=== PATIENT | female | born 1940 | race Caucasian/White ===

== ENCOUNTER 2019-04-21 14:10 | Outpatient (RCR) | payer OTHER, SELFPAY | END 2019-04-21 23:59 | disposition home or self-care (01) | LOC: ANHAUDIO 14:10 | PROVIDERS: PCP Family Medicine; Visit Provider Family Medicine | DX: Z46.1 Encounter for fitting and adjustment of hearing aid (principal) | CPT/HCPCS: V5261 ==

== ENCOUNTER 2019-07-08 10:49 | Outpatient (CLI) | payer OTHER, SELFPAY ==
[2019-07-08 11:26] LABS: Basophils Percent Auto 0.6 % (0.2-1.2); Eosinophils Absolute Auto 0.1 K/mm3 (0-0.3); Eosinophils Percent Auto 1.7 % (0-4.4); Hemoglobin 15.6 g/dL (12.0-15.0); Immature Granulocyte Absolute 0.01 K/mm3 (0.00-0.031); Immature Granulocyte Percent A 0.2 % (0-0.5); Immature Platelet Fraction Pct 4.1 % (0.9-11.2); Lymphocytes Percent Auto 31.4 % (18.3-44.2); Mean Corpuscular HGB Conc 33.9 g/dl (32-36); Mean Corpuscular Hemoglobin 29.4 pg (26-34); Mean Corpuscular Volume 86.8 fl (80-100); Mean Platelet Volume 10.5 fl (7.4-10.4); Monocytes Absolute Auto 0.5 K/mm3 (0.1-0.6); Monocytes Percent Auto 11.1 % (2.6-8.5); Neutrophils Absolute Auto 2.6 K/mm3 (1.3-6.7); Platelet Count Result 94 k/mm3 (150-375); Red Cell Distribution Width 13.8 % (11.5-14.5); White Blood Count 4.8 K/mm3 (4.5-10.0)
[2019-07-08 11:39] LABS: Alanine Aminotransferase 35 U/L (4-35); Albumin Level 3.8 g/dL (3.5-5.1); Alkaline Phosphatase 104 U/L (38-126); Aspartate Amino Transferase 42 U/L (14-36); Bilirubin,Total 0.7 mg/dL (0.2-1.3); Blood Urea Nitrogen 15 mg/dL (7-17); Calcium 9.4 mg/dL (8.4-10.2); Carbon Dioxide 28 mmol/L (22-30); Chloride 101 mmol/L (98-107); Estimated Glomerular Filt Rate > 60; Glucose 348 mg/dL (65-105); Potassium 4.1 mmol/L (3.4-5.0); Sodium 134 mmol/L (137-145)
[2019-07-08 11:40] LABS: Hemoglobin A1C 13.2 % (<5.7)
== END 2019-07-08 10:50 | disposition home or self-care (01) ==
PROVIDERS: PCP Family Medicine; Visit Provider Physician Assistant
DX: E11.21 Type 2 diabetes mellitus with diabetic nephropathy (principal); I10 Essential (primary) hypertension
CPT/HCPCS: 36415; 80053; 83036; 85025; 85055

== ENCOUNTER 2019-11-16 13:44 | Outpatient (RCR) | payer SELFPAY | END 2019-11-16 23:59 | disposition home or self-care (01) | LOC: ANHAUDIO 13:44 | PROVIDERS: PCP Family Medicine; Visit Provider Family Medicine | DX: Z46.1 Encounter for fitting and adjustment of hearing aid (principal) | CPT/HCPCS: V5257 ==

== ENCOUNTER 2020-02-22 11:04 | Outpatient (RCR) | payer OTHER, SELFPAY | END 2020-02-22 23:59 | disposition home or self-care (01) | LOC: ANHAUDIO 11:04 | PROVIDERS: PCP Family Medicine; Visit Provider Family Medicine | DX: Z46.1 Encounter for fitting and adjustment of hearing aid (principal) | CPT/HCPCS: 99199 ==

== ENCOUNTER 2020-03-08 10:45 | Outpatient (RCR) | payer OTHER, SELFPAY | END 2020-05-04 13:23 | disposition home or self-care (01) | LOC: ANHDMC 10:45 | PROVIDERS: PCP Family Medicine; Visit Provider Family Medicine | DX: E11.22 Type 2 diabetes mellitus with diabetic chronic kidney disease (principal); E11.40 Type 2 diabetes mellitus with diabetic neuropathy, unspecified; Z71.89 Other specified counseling | CPT/HCPCS: G0108 ==

== ENCOUNTER 2020-06-08 14:13 | Outpatient (CLI) | payer OTHER, MEDICARE, SELFPAY | END 2020-06-08 14:14 | disposition home or self-care (01) | LOC: ANHCOVIDVC 14:14 | PROVIDERS: PCP Family Medicine | DX: Z23 Encounter for immunization (principal) | CPT/HCPCS: 0001A; 91300 ==

== ENCOUNTER 2020-06-29 13:05 | Outpatient (CLI) | payer OTHER, MEDICARE, SELFPAY | END 2020-06-29 13:06 | disposition home or self-care (01) | LOC: ANHCOVIDVC 13:05 | PROVIDERS: PCP Family Medicine | DX: Z23 Encounter for immunization (principal) | CPT/HCPCS: 0002A; 91300 ==

== ENCOUNTER 2020-11-16 14:16 | Emergency (ER) | payer OTHER, SELFPAY ==
--- NOTE | ~2020-11-16 | XR_ITS ---
EXAMINATION: XR lumbar spine 2-3V DATE: 11/16/2020 14:49 INDICATION: A single back pain TECHNIQUE: Anteroposterior and lateral views of the lumbar spine, and cone-down lateral view of the l umbosacral junction were obtained. COMPARISON: CT abdomen and pelvis dated 11/12/2018 FINDINGS: Mild lower lumbar levocurvature. 6 mm anterolisthesis L4 on L5 and 4 mm retrolisthesis L5 on S1. Vert ebral body heights are normal. Moderate to severe disc height loss with prominent degenerative endpla te changes and vacuum phenomena at L1-L2, L2-L3 and L5-S1. Moderate disc height loss at L3-L4 and L4- L5. Endplate osteophytes anteriorly and laterally throughout the lumbar spine. Sacral arches are inta ct. Mild bilateral sacroiliac osteoarthritis. Masslike suture line in the central pelvis. Atheroscler otic calcification of the splenic artery and numerous small calcified splenic granuloma in the left u pper quadrant. IMPRESSION: 1. No significant change in severe lumbar spondylosis. Reviewed, dictated and finalized at location A.
[2020-11-16 14:25] VITALS: BP 157/87; PULSE 61; RESP 18; TEMP 36.8; O2SAT 98
--- NOTE | 2020-11-16 14:40 | ED.BACK ---
HPI - Back Pain/Injury General Chief Complaint: Back Pain/Injury Stated Complaint: LOWER BACK PAIN Time Seen by Provider: 11/16/20 14:40 Source: patient Mode of arrival: ambulatory Limitations: no limitations History of Present Illness HPI Narrative: Marilyn Baker is an 80 yo female with PMH of HTN, high cholesterol, DM, chronic backl pain, depression who comes to [facility] for low back pain that she is having hard time managing. She states that her back hurts all the time and is gotten worse ; holistic medical practices have not helped. her primary care doctor called in some muscle relaxants for her and she needs to pick them up and also has been going to a chiropractor. States she was 1 scheduled for back surgery 10 years ago but did not end up going through with it and has not seen a orthopedic surgeon since then Related Data Home Medications Medication Instructions Recorded Confirmed mzznqmrm-nwt-cntfu ac 400 1 tablet PO DAILY 12/16/18 11/16/20 mcg-calcium carb 500 mg-vit K1 20 mcg tablet insulin aspart U-100 [Novolog 10 - 15 unit SUB-Q TID 11/16/20 11/16/20 Flexpen U-100 Insulin] Allergies Allergy/AdvReac Type Severity Reaction Status Date / Time No Known Allergies Allergy Unknown Verified 11/16/20 14:36 Review of Systems Review of Systems: CONSTITUTIONAL: Denies fever, chills, sweats. EYES: Denies visual changes, redness, discharge. ENT: Denies rhinorrhea, congestion, sore throat, otalgia. CARDIOVASCULAR: Denies chest pain, palpitations, edema. RESPIRATORY: Denies dyspnea, wheezing, cough GASTROINTESTINAL: Denies abdominal pain, nausea, vomiting, diarrhea. GENITOURINARY: Denies dysuria, hematuria, abnormal discharge SKIN: Denies rash or itching. NEUROLOGIC: Denies numbness, or focal weakness. PSYCHIATRIC: Denies anxiety or depression. Chronic lumbar back pain PMFSH Past Medical History Medical History Arthritis of knee Atherosclerosis of aorta Atherosclerotic heart disease of [place] coronary artery without angina pectoris Chronic diastolic (congestive) heart failure Chronic pancreatitis 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) Cognitive impairment Constipation Diabetic nephropathy Diabetic neuropathy History of right breast cancer HTN (hypertension) HX: breast cancer MDD (major depressive disorder), recurrent episode, severe Mild cognitive impairment with memory loss Non-compliance BRO (obstructive sleep apnea) Primary generalized (osteo)arthritis 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cial History Social History: Smoking status: Never smoker Second hand tobacco smoke exposure: No Alcohol intake: never Substance use: never Substance use type: does not use Additional living arrangements comments: Pt lives with her son. Gender identity (if verbalized by the patient): Female Sexual Orientation (if Verbalized by the Patient): Straight or Heterosexual Comments At time of signature, I agree with nursing past medical, surgical, social and family history. There is no relevant family history pertinent to the presenting complaint. Exam Narrative:
== END 2020-11-16 15:37 | disposition home or self-care (01) ==
PROVIDERS: Emergency Provider Nurse Practitioner; PCP Family Medicine
DX: M47.816 Spondylosis without myelopathy or radiculopathy, lumbar region (principal); M17.10 Unilateral primary osteoarthritis, unspecified knee; I70.0 Atherosclerosis of aorta; I25.10 Atherosclerotic heart disease of native coronary artery without angina pectoris; I11.0 Hypertensive heart disease with heart failure; I50.30 Unspecified diastolic (congestive) heart failure; I69.319 Unspecified symptoms and signs involving cognitive functions following cerebral infarction; E11.42 Type 2 diabetes mellitus with diabetic polyneuropathy; Z85.3 Personal history of malignant neoplasm of breast; G47.33 Obstructive sleep apnea (adult) (pediatric); Z90.11 Acquired absence of right breast and nipple
CPT/HCPCS: 72100; 99213; G0463

== ENCOUNTER 2020-12-05 05:46 | Emergency (ER) | payer OTHER, SELFPAY ==
--- NOTE | ~2020-12-05 | XR_ITS ---
EXAMINATION: XR abdomen/kub 1V INDICATION: Left flank pain TECHNIQUE: Supine views of the abdomen were obtained on 2 radiographs. COMPARISON: 09/21/2018 FINDINGS: No urolithiasis is identified. The bowel gas pattern is normal. There is a moderate volume of colonic stool. Punctate calcifications of the liver and spleen are consistent with old granulomato us disease. The visualized lung bases are clear. A surgical anastomosis is noted in the pelvis. There is moderate osteoarthritis of the hips. Severe lumbar spondylosis is noted. IMPRESSION: 1. No urolithiasis identified. Reviewed, dictated and finalized at location A.
--- NOTE | ~2020-12-05 | CT_ITS ---
EXAMINATION: CT abdomen pelvis wo con DATE: 12/05/2020 06:50 INDICATION: Left flank pain TECHNIQUE: Computed tomography (CT) of the abdomen and pelvis was performed without intravenous contr ast. The dose-length product (DLP) was 989.89 mGy-cm. Automated exposure control and iterative recons truction technique were employed. COMPARISON: 11/12/2018 FINDINGS: Minimal dependent atelectasis is present in the lung bases. The heart size is normal. Punct ate calcifications of the liver and spleen are consistent with old granulomatous disease. There is ci rrhosis of the liver. Chronic wall thickening is noted in the distal esophagus. A portacaval shunt is again noted in the right abdomen. There are paraesophageal varices. The gallbladder is surgically ab sent. The gallbladder is surgically absent. Calcifications in the head of the pancreas are consistent with chronic pancreatitis. There appears to be a 1.7 cm cystic lesion in the head of the pancreas. S table chronic mass of the right adrenal gland measuring up to 2.2 cm and likely represent adenomas. T he left adrenal gland is unremarkable. There is a 2.1 cm cyst of the right kidney. The left kidney is unremarkable. No stones are identified in the kidneys, ureters, or bladder. There is no hydronephros is or hydroureter. There is severe lumbar spondylosis. Mild periportal lymphadenopathy is likely reac tive. There is no free intraperitoneal gas or evidence of bowel obstruction. Colonic diverticulosis i s present without evidence of diverticulitis. There is an acute appearing fracture of the right L2 tr ansverse process. IMPRESSION: 1. Acute appearing fracture of the right L2 transverse process. 2. Cirrhosis with portal hypertension. 3. Possible cystic lesion in the head of the pancreas, possibly related to prior pancreatitis. Pancre as protocol CT or MRI in two years is recommended. Reviewed, dictated and finalized at location A. IMPRESSION: 1. Acute appearing fracture of the right L2 transverse process. 2. Cirrhosis with portal hypertension. 3. Possible cystic lesion in the head of the pancreas, possibly related to prio r pancreatitis. Pancreas protocol CT or MRI in two years is recommended.
[2020-12-05 05:56] VITALS: BP 201/83; PULSE 71; RESP 18; TEMP 37.2; O2SAT 99
[2020-12-05] MEDS: ONDANSETRON INJ 4 MG/2 ML VIAL IV PUSH (06:15)
[2020-12-05 06:26] LABS: Basophils Percent Auto 0.8 % (0.2-1.2); Eosinophils Absolute Auto 0.1 K/mm3 (0-0.3); Eosinophils Percent Auto 1.9 % (0-4.4); Hematocrit 43.9 % (37.0-47.0); Hemoglobin 14.6 g/dL (12.0-15.0); Immature Granulocyte Absolute 0.01 K/mm3 (0.00-0.031); Immature Granulocyte Percent A 0.3 % (0-0.5); Immature Platelet Fraction Pct 4.6 % (0.9-11.2); Lymphocytes Absolute Auto 1.08 K/mm3 (0.9-3.2); Lymphocytes Percent Auto 29.1 % (18.3-44.2); Mean Corpuscular HGB Conc 33.3 g/dl (32-36); Mean Corpuscular Hemoglobin 29.6 pg (26-34); Mean Corpuscular Volume 88.9 fl (80-100); Mean Platelet Volume 10.3 fl (7.4-10.4); Monocytes Absolute Auto 0.4 K/mm3 (0.1-0.6); Monocytes Percent Auto 11.1 % (2.6-8.5); Neutrophils Absolute Auto 2.1 K/mm3 (1.3-6.7); Neutrophils Percent Auto 56.8 % (45.5-73.1); Red Blood Count 4.94 M/mm3 (4.2-5.4); Red Cell Distribution Width 14.8 % (11.5-14.5); White Blood Count 3.7 K/mm3 (4.5-10.0)
[2020-12-05 06:29] LABS: Platelet Count Result 74 k/mm3 (150-375)
[2020-12-05 06:30] LABS: Add Urine Microscopic? YES; Appearance Urine Clear (Clear); Bacteria Urine Trace /hpf; Bilirubin Urine Negative (Negative); Blood Urine Negative (Negative); Color Urine Yellow (Yellow); Glucose Urine UA 3+ mg/dL (Negative); Ketones Urine Negative (Negative); Leukocyte Esterase Ur Negative LEU/UL (Negative); Nitrate Urine Negative (Negative); Protein Urine 2+ mg/dL (Negative); RBC Urine 0-2 /hpf (0-2); Specific Grav Ur 1.015 (1.001-1.035); Squamous Epithelial Cell Urine Rare /hpf (Few); Urobilinogen Urine Negative mg/dL (<2.0); WBC Urine 0-3 /hpf
[2020-12-05 06:32] LABS: Alanine Aminotransferase 51 U/L (4-35); Albumin Level 3.7 g/dL (3.5-5.1); Alkaline Phosphatase 114 U/L (38-126); Anion Gap 8 mmol/L (8-16); Aspartate Amino Transferase 63 U/L (14-36); Bilirubin,Total 0.9 mg/dL (0.2-1.3); Blood Urea Nitrogen 12 mg/dL (7-17); Carbon Dioxide 26 mmol/L (22-30); Chloride 104 mmol/L (98-107); Estimated Glomerular Filt Rate > 60; Glucose 312 mg/dL (65-110); Lipase 258 U/L (23-300); Potassium 3.6 mmol/L (3.4-5.0); Sodium 138 mmol/L (137-145)
--- NOTE | 2020-12-05 06:32 | ED.BACK ---
HPI - Back Pain/Injury General Chief Complaint: Back Pain/Injury Stated Complaint: left sided abdominal and flank pain Time Seen by Provider: 12/05/20 05:51 Source: patient Mode of arrival: ambulatory Limitations: no limitations History of Present Illness HPI Narrative: This is an 80 year old female with history of hypertension and diabetic mellitus who presents for evaluation left flank pain. She reports her pain has been present for 1.5. She describes pain as stabbing and constant. She is unaware of any exacerbating or alleviating factors. She is having nausea with her pain. She denies radiation pain. She is concerned for possible kidney stone was cause of her pain due to family history. She was evaluated at [facility] and a chiropractor for this pain. She reports she has only been taking tylenol and she has not gotten any relief. Related Data Home Medications Medication Instructions Recorded Confirmed kqznhbox-ofr-mxzgb ac 400 1 tablet PO DAILY 12/16/18 12/05/20 mcg-calcium carb 500 mg-vit K1 20 mcg tablet insulin aspart U-100 [Novolog 10 - 15 unit SUB-Q TID 11/16/20 12/05/20 Flexpen U-100 Insulin] Allergies Allergy/AdvReac Type Severity Reaction Status Date / Time No Known Allergies Allergy Unknown Verified 12/05/20 10:04 Review of Systems Review of Systems: All systems reviewed & are unremarkable except as noted in HPI and below PMFSH Past Medical History Medical History Arthritis of knee Atherosclerosis of aorta Atherosclerotic heart disease of [place] coronary artery without angina pectoris Chronic diastolic (congestive) heart failure Chronic pancreatitis 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) Cognitive impairment Constipation Diabetic nephropathy Diabetic neuropathy History of right breast cancer HTN (hypertension) HX: breast cancer MDD (major depressive disorder), recurrent episode, severe Mild cognitive impairment with memory loss Non-compliance BRO (obstructive sleep apnea) Primary generalized (osteo)arthritis 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cial History (Updated 12/05/20 @ 10:05 by Michelle Nair MA) Social History: Smoking status: Never smoker Second hand tobacco smoke exposure: No Alcohol intake: never Substance use: never Substance use type: does not use Living arrangements: with family Additional living arrangements comments: Pt lives with her son. Occupation/Education: retired Gender identity (if verbalized by the patient): Female Sexual Orientation (if Verbalized by the Patient): Straight or Heterosexual Exam Const: General: no acute distress and alert Orientation/consciousness: patient oriented x3 Eyes: EOM: EOMs intact bilaterally Resp: Effort & Inspection: normal respiratory effort and no retractions Auscultation: clear to auscultation bilaterally Cardio: Rate: regular rate Rhythm: regular rhythm Heart sounds: no murmurs GI: GI Palp: Yes Soft to palpation, Yes Tenderness to palpation present (GI) (epigastric causes nausea), No Guarding due to palpation present (GI) and No Rigid due to palpation Auscultation: normal bowel sounds : G
[2020-12-05 06:34] VITALS: BP 177/79
[2020-12-05] MEDS: hydrALAZINE HCL 20 MG/ML VIAL 10 MG IV PUSH (06:40)
--- NOTE | 2020-12-05 06:45 | PC.NURSE ---
Pt to CT via stretcher at this time.
[2020-12-05 07:00] VITALS: BP 181/55; PULSE 72; RESP 20; O2SAT 98
[2020-12-05] MEDS: traMADol HCL (*CRX) 50 MG TABLET PO (07:37)
[2020-12-05 08:10] VITALS: BP 177/67; PULSE 63; RESP 16; O2SAT 98
== END 2020-12-05 08:10 | disposition home or self-care (01) ==
PROVIDERS: Emergency Provider General Practice; PCP Family Medicine
DX: S32.009A Unspecified fracture of unspecified lumbar vertebra, initial encounter for closed fracture (principal); R10.9 Unspecified abdominal pain; M19.90 Unspecified osteoarthritis, unspecified site; I11.0 Hypertensive heart disease with heart failure; I50.30 Unspecified diastolic (congestive) heart failure; E11.9 Type 2 diabetes mellitus without complications; Z85.3 Personal history of malignant neoplasm of breast; F32.9 Major depressive disorder, single episode, unspecified; G47.30 Sleep apnea, unspecified; X58.XXXA Exposure to other specified factors, initial encounter; Z79.4 Long term (current) use of insulin
CPT/HCPCS: 36415; 74018; 74176; 80053; 81001; 83690; 85025; 85055; 96365; 96375; 99284; A9270; J0131; J0360; J2405

== ENCOUNTER 2020-12-08 06:18 | Emergency (ER) | payer OTHER, SELFPAY ==
[2020-12-08 06:22] VITALS: BP 129/108; PULSE 98; RESP 16; TEMP 36.6; O2SAT 97
--- NOTE | 2020-12-08 07:13 | ED.ABDPAIN ---
HPI - Abdominal Pain General Chief Complaint: Abdominal Pain Stated Complaint: Left abd pain Time Seen by Provider: 12/08/20 06:58 Source: patient History of Present Illness HPI narrative: Patient presents with left-sided abdominal pain. Pain is where she has been evaluated for this before and seen her primary care doctor she was put on some pain meds but it does not appear to be helping so she came in for reevaluation. Patient reports she has left-sided flank pain that has been intermittent for the past 2 weeks primarily starts in her back and radiates around to her abdomen. She was unable to identify any clear aggravating or alleviating factors. She reports some nausea but denies vomiting or diarrhea she denies fevers, cough, congestion, chest pain, urinary symptoms Related Data Home Medications Medication Instructions Recorded Confirmed lngdwczc-puo-kvqfm ac 400 1 tablet PO DAILY 12/16/18 12/05/20 mcg-calcium carb 500 mg-vit K1 20 mcg tablet insulin aspart U-100 [Novolog 10 - 15 unit SUB-Q TID 11/16/20 12/05/20 Flexpen U-100 Insulin] Allergies Allergy/AdvReac Type Severity Reaction Status Date / Time No Known Allergies Allergy Unknown Verified 12/05/20 10:04 Review of Systems Review of Systems: CONSTITUTIONAL: Denies fever, chills, or sweats. EYES: Denies visual changes, redness, or discharge. ENT: Denies rhinorrhea, congestion, sore throat, or otalgia. CARDIOVASCULAR: Denies chest pain, palpitations, or edema. RESPIRATORY: Denies cough or dyspnea. GASTROINTESTINAL: Denies vomiting, or diarrhea. GENITOURINARY: Denies dysuria or hematuria. SKIN: Denies rash or itching. MUSCULOSKELETAL: Denies joint pain, or myalgia. NEUROLOGIC: Denies headache, numbness, dizziness, or weakness. PSYCHIATRIC: Denies anxiety or depression. 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) Cognitive impairment Constipation Diabetic nephropathy Diabetic neuropathy History of right breast cancer HTN (hypertension) HX: breast cancer Liver, cirrhosis, portal Lumbar spondylosis MDD (major depressive disorder), recurrent episode, severe Mild cognitive impairment with memory loss Non-compliance BRO (obstructive sleep apnea) Primary generalized (osteo)arthritis 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cial History Social History: Smoking status: Never smoker Second hand tobacco smoke exposure: No Alcohol intake: never Substance use: never Substance use type: does not use Additional living arrangements comments: Pt lives with her son. Gender identity (if verbalized by the patient): Female Sexual Orientation (if Verbalized by the Patient): Straight or Heterosexual Exam Narrative: GENERAL: Well-appearing, well-nourished, and in no acute distress. HEAD: Normocephalic, atraumatic. EYES: PERRLA and
[2020-12-08 07:20] LABS: Basophils Percent Auto 0.6 % (0.2-1.2); Eosinophils Absolute Auto 0.1 K/mm3 (0-0.3); Eosinophils Percent Auto 1.6 % (0-4.4); Hematocrit 48.4 % (37.0-47.0); Hemoglobin 16.1 g/dL (12.0-15.0); Immature Granulocyte Absolute 0.01 K/mm3 (0.00-0.031); Immature Granulocyte Percent A 0.2 % (0-0.5); Immature Platelet Fraction Pct 5.6 % (0.9-11.2); Lymphocytes Absolute Auto 1.17 K/mm3 (0.9-3.2); Lymphocytes Percent Auto 23.8 % (18.3-44.2); Mean Corpuscular HGB Conc 33.3 g/dl (32-36); Mean Corpuscular Hemoglobin 29.1 pg (26-34); Mean Corpuscular Volume 87.4 fl (80-100); Mean Platelet Volume 10.9 fl (7.4-10.4); Monocytes Absolute Auto 0.6 K/mm3 (0.1-0.6); Monocytes Percent Auto 12.8 % (2.6-8.5); Platelet Count Result 72 k/mm3 (150-375); Red Blood Count 5.54 M/mm3 (4.2-5.4); Red Cell Distribution Width 14.7 % (11.5-14.5); White Blood Count 4.9 K/mm3 (4.5-10.0)
[2020-12-08 07:21] LABS: Add Urine Microscopic? YES; Appearance Urine Clear (Clear); Bilirubin Urine Negative (Negative); Blood Urine Negative (Negative); Color Urine Yellow (Yellow); Glucose Urine UA 1+ mg/dL (Negative); Ketones Urine Negative (Negative); Leukocyte Esterase Ur Trace LEU/UL (Negative); Nitrate Urine Negative (Negative); Protein Urine 2+ mg/dL (Negative); RBC Urine 0-2 /hpf (0-2); Specific Grav Ur 1.016 (1.001-1.035); Squamous Epithelial Cell Urine Rare /hpf (Few)
[2020-12-08 07:22] LABS: Mucus Urine Rare /lpf
[2020-12-08] MEDS: ONDANSETRON HCL ODT 4 MG TABLET PO (07:43)
[2020-12-08 07:44] VITALS: BP 161/84; PULSE 65; RESP 22; O2SAT 100
[2020-12-08 07:53] LABS: Alanine Aminotransferase 45 U/L (4-35); Albumin Level 3.9 g/dL (3.5-5.1); Alkaline Phosphatase 123 U/L (38-126); Anion Gap 10 mmol/L (8-16); Aspartate Amino Transferase 69 U/L (14-36); Bilirubin,Total 1.6 mg/dL (0.2-1.3); Blood Urea Nitrogen 15 mg/dL (7-17); Calcium 9.5 mg/dL (8.4-10.2); Carbon Dioxide 26 mmol/L (22-30); Chloride 102 mmol/L (98-107); Estimated CRCL calculation 53 ml/min; Estimated Glomerular Filt Rate > 60; Glucose 233 mg/dL (65-110); Lipase 254 U/L (23-300); Potassium 4.1 mmol/L (3.4-5.0); Sodium 138 mmol/L (137-145)
[2020-12-08] MEDS: KETOROLAC 15 MG/ML VIAL (*BKC) IV PUSH (08:06)
--- NOTE | 2020-12-08 08:14 | PC.NURSE ---
This RN into pts room to discharge pt. Pt states You are going to let me go home like that? Informed pt that I did have pain medication to give her. Pt states whatever just give it to me . After giving pt medication this RN went to Dr. Bautista and informed him that pt was still in alot of pain. states ok . This RN informed that I was just wanting to let him know that pt was still in alot of pain. This RN back into pts room to inform pt that was still ok with her leaving. Pt states I sure hope you dont have to deal with my granddaughter, it wont be good'. Informed pt that if she wants my to talk to her granddaughter i will. Also informed pt that she needs to follow up with her primary Dr so they maybe further testing can be done. Pt states that she doesn't need further testing. This RN then took pts IV out and went over discharge paperwork. Pt refused to sign paperwork. Pt also states that i gave someone my car keys and I was going to see if they could bring my car around . I asked pt who she gave her keys too pt states I have no idea . This Rn informed charge nurse of what pt had stated. Pt then walked out
== END 2020-12-08 08:27 | disposition home or self-care (01) ==
PROVIDERS: Emergency Medicine; Emergency Provider Emergency Medicine; PCP Family Medicine
DX: B02.9 Zoster without complications (principal); E11.42 Type 2 diabetes mellitus with diabetic polyneuropathy; E11.21 Type 2 diabetes mellitus with diabetic nephropathy; I50.32 Chronic diastolic (congestive) heart failure; I11.0 Hypertensive heart disease with heart failure; I70.0 Atherosclerosis of aorta; I25.10 Atherosclerotic heart disease of native coronary artery without angina pectoris; I69.911 Memory deficit following unspecified cerebrovascular disease; K86.1 Other chronic pancreatitis; G47.33 Obstructive sleep apnea (adult) (pediatric); M17.10 Unilateral primary osteoarthritis, unspecified knee; Z85.3 Personal history of malignant neoplasm of breast; Z79.4 Long term (current) use of insulin; Z90.11 Acquired absence of right breast and nipple; Z98.49 Cataract extraction status, unspecified eye; Z96.659 Presence of unspecified artificial knee joint
CPT/HCPCS: 36415; 80053; 81001; 83690; 85025; 85055; 87086; 96374; 99284; A9270; J1885

== ENCOUNTER 2021-07-25 07:03 | Emergency (ER) | payer OTHER, SELFPAY ==
[2021-07-25] VITALS (10 sets, daily range): BP systolic 148–157; BP diastolic 72–86; PULSE 54–64; RESP 13–20; O2SAT 94–98
--- NOTE | ~2021-07-25 | XR_ITS ---
XR chest 2V 07/25/2021 07:44 Indication: Shortness of breath Procedure: PA and lateral views of the chest Comparison: Comparison to multiple prior studies sequentially, with oldest reviewed study dated 04/02. Findings: Heart size normal. Calcified right peritracheal lymph nodes, consistent with chronic granul omatous infection. There are surgical clips in the right axilla. No focal air space disease, pulmonar y edema, pleural effusion or suspected pneumothorax. Impression: 1: No acute cardiopulmonary disease. Reviewed, dictated and finalized at location A. Impression: 1: No acute cardiopulmonary disease.
--- NOTE | ~2021-07-25 | CT_ITS ---
EXAMINATION: CTA chest PE protocol DATE: 07/25/2021 08:42 INDICATION: Shortness of breath. TECHNIQUE: Computed tomography angiography (CTA) of the chest was performed with 100 mL Omnipaque-350 intravenous contrast timed to evaluate the pulmonary arteries. Coronal maximum intensity projection 3D-reconstructions were created by the technologist. Automated exposure control and iterative reconst ruction technique were employed. The dose-length product was 635.32 mGy-cm. COMPARISON: CT abdomen and pelvis 12/05/2020, 11/12/2018 FINDINGS: Calcified right lung nodules and calcified right hilar and mediastinal lymph nodes are cons istent with old granulomatous disease. There are groundglass opacities and septal thickening in the l ungs, consistent with mild pulmonary edema. No pleural effusion. Cardiomegaly is noted. There are cor onary artery calcifications. No pericardial effusion. There is no pulmonary embolus. There is a small sliding hiatal hernia. There is wall thickening of the distal esophagus. The liver demonstrates a no dular surface contour, consistent with cirrhosis. Calcifications in the liver and spleen are consiste nt with old granulomatous disease. Splenomegaly is noted. There is a 1.9 cm mass in right adrenal gla nd measuring soft tissue attenuation, stable from 11/12/2018, consistent with an adenoma. There is a p ortacaval shunt in right abdomen. There is a small volume of perihepatic ascites. There are bridging endplate osteophytes at multiple levels in the spine, consistent with diffuse idiopathic skeletal hyp erostosis (DISH). IMPRESSION: 1. No pulmonary embolus. 2. Mild pulmonary edema. 3. Cardiomegaly. 4. Cirrhosis of the liver with portal venous hypertension. 5. Small volume of perihepatic ascites. 6. Wall thickening of the distal esophagus, which may be esophagitis or interstitial edema. Small sli ding hiatal hernia. Reviewed, dictated and finalized at location B. IMPRESSION: 1. No pulmonary embolus. 2. Mild pulmonary edema. 3. Cardiomegaly. 4. Cirrhosis of the liver with portal venous hypertension. 5. Small volume of perihepatic ascites. 6. Wall thickening of the distal esophagus, which may be esophagitis or interst itial edema. Small sliding hiatal hernia.
--- NOTE | 2021-07-25 07:21 | ECG_ITS ---
Measurements Intervals [place] Rate: 58 P: -23 [place]: 148 QRS: -25 QRSD: 172 T: 132 QT: 495 QTc: 488 Interpretive Statements SINUS BRADYCARDIA WITH OCCASIONAL VENTRICULAR PREMATURE COMPLEXES LEFT BUNDLE BRANCH BLOCK [120+ ms QRS DURATION, 80+ ms Q/S IN V1/V2, 85+ ms R IN I/aVL/V5/V6] NO PREVIOUS ECG AVAILABLE FOR COMPARISON Electronically Signed On 07-25-2021 11:18:24 CDT by Dirk Barrera MD
[2021-07-25 07:33] LABS: Basophils Percent Auto 0.5 % (0.2-1.2); Eosinophils Absolute Auto 0.1 K/mm3 (0-0.3); Hematocrit 44.4 % (37.0-47.0); Hemoglobin 14.7 g/dL (12.0-15.0); Immature Granulocyte Absolute 0.02 K/mm3 (0.00-0.031); Immature Granulocyte Percent A 0.3 % (0-0.5); Immature Platelet Fraction Pct 5.3 % (0.9-11.2); Lymphocytes Absolute Auto 1.13 K/mm3 (0.9-3.2); Lymphocytes Percent Auto 19.3 % (18.3-44.2); Mean Corpuscular HGB Conc 33.1 g/dl (32-36); Mean Corpuscular Hemoglobin 28.2 pg (26-34); Mean Corpuscular Volume 85.2 fl (80-100); Mean Platelet Volume 10.5 fl (7.4-10.4); Monocytes Absolute Auto 0.6 K/mm3 (0.1-0.6); Monocytes Percent Auto 9.7 % (2.6-8.5); Neutrophils Percent Auto 69.2 % (45.5-73.1); Platelet Count Result 90 k/mm3 (150-375); Red Blood Count 5.21 M/mm3 (4.2-5.4); Red Cell Distribution Width 15.7 % (11.5-14.5); White Blood Count 5.9 K/mm3 (4.5-10.0)
[2021-07-25 07:36] LABS: Chloride 106 mmol/L (98-107)
--- NOTE | 2021-07-25 07:37 | ED.SOB ---
HPI - SOB/Dyspnea General Chief Complaint: Shortness of Breath/Dyspnea Stated Complaint: sob x 2 days Time Seen by Provider: 07/25/21 07:19 Source: patient, RN notes reviewed and old records reviewed Mode of arrival: ambulatory Limitations: no limitations History of Present Illness HPI Narrative: This is an 81 year old female who presents for evaluation of shortness of breath. Patient states she feel like she can not get a good deep breath since yesterday. She denies chest pain or chest discomfort. She does not think she is short of breath or get winded with activity at home. She reports chronic dry cough. She is also complaining of fatigue that is chronic due to lack of sleep . She reports dealing with insomnia for a long time. She denies leg swelling or calf pain. Related Data Home Medications Medication Instructions Recorded Confirmed idnrqwwy-omp-iyeva ac 400 1 tablet PO DAILY 12/16/18 07/05/21 mcg-calcium carb 500 mg-vit K1 20 mcg tablet (Women's 50 Plus Daily Formula) insulin aspart U-100 100 unit/mL 10 - 15 unit subcut TID 11/16/20 07/05/21 (3 mL) subcutaneous pen (Novolog Flexpen U-100 Insulin aspart) Allergies Allergy/AdvReac Type Severity Reaction Status Date / Time No Known Allergies Allergy Unknown Verified 07/05/21 14:06 Review of Systems Review of Systems: All systems reviewed & are unremarkable except as noted in HPI and below Constitutional: Constitutional: Denies chills, Reports fatigue and Denies fever(s) ENT: Denies dizziness and Denies nasal congestion Cardiovascular: Cardiovascular: Denies chest pain and Denies rapid heart rate Respiratory: Respiratory: Reports cough, Denies dyspnea and Denies wheezing Gastrointestinal: Gastrointestinal: Denies abdominal pain, Denies bloating and Denies constipation Genitourinary: Genitourinary: Denies abnormal vaginal bleeding Neurologic: Denies headache(s) and Denies focal weakness Psychiatric: Psychiatric: Denies anxiety and Denies depression [facility] Past Medical History Medical History Arthritis of knee Atherosclerosis of aorta Atherosclerotic heart disease of [place] coronary artery without angina pectoris Chronic diastolic (congestive) heart failure Chronic pancreatitis 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) Cognitive impairment Constipation Diabetic nephropathy Diabetic neuropathy History of right breast cancer HTN (hypertension) HX: breast cancer Liver, cirrhosis, portal Lumbar spondylosis MDD (major depressive disorder), recurrent episode, severe Mild cognitive impairment with memory loss Non-compliance BRO (obstructive sleep apnea) Primary generalized (osteo)arthritis 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cial History (Updated 07/05/21 @ 14:07 by Julieta Walker) Social History: Smoking status: Never smoker Second hand tobacco smoke exposure: No Alcohol intake: never Substance use: never Substance use type: does not use Additional living arrangements comments: Pt lives with her son. Gender identity (if verbalized by the patient): Female Sexual Orientation (if Verbalized by the Patient): Straight or Heterosexual
[2021-07-25 07:48] LABS: Alanine Aminotransferase 34 U/L (6-35); Albumin Level 3.6 g/dL (3.5-5.1); Alkaline Phosphatase 115 U/L (38-126); Anion Gap 8 mmol/L (8-16); Aspartate Amino Transferase 46 U/L (14-36); Bilirubin,Total 0.9 mg/dL (0.2-1.3); Blood Urea Nitrogen 19 mg/dL (7-17); Calcium 9.1 mg/dL (8.4-10.2); Carbon Dioxide 22 mmol/L (22-30); Estimated CRCL calculation 64 ml/min; Estimated Glomerular Filt Rate > 60; Glucose 310 mg/dL (65-110); Potassium 4.1 mmol/L (3.4-5.0); Sodium 136 mmol/L (137-145)
[2021-07-25 08:15] LABS: Alveolar/Arterial O2 Gradient 23.8 mmHg; Base Excess ABG -2.3 mEq/l (+/-2.0); Carboxyhemoglobin 0.7 % THb (0-2.0); Fractional Inspired Oxygen 21 %; HCO3 ABG 21.5 mEq/l (22.0-26.0); Methemoglobin ABG 0.2 %THb (0-1.5); Oxygen Content ABG 19.5 %vol (16.0-22.0); Oxygen Saturation ABG 96.6 % (95.0-100.0); Oxyhemoglobin 95.3 % THb (90.0-100.0); PCO2 ABG 34.3 mmHg (35.0-45.0); PO2 ABG 84.9 mmHg (80.0-100.0); PO2 FiO2 Ratio Arterial Blood 4.04 %; Reduced Hemoglobin 3.8 %THb (0-5.0); Total Hemoglobin 14.5 g/dL (12.0-18.0); pH ABG 7.415 (7.350-7.450)
[2021-07-25 08:19] LABS: NT Pro B Type Natriuretic Pept 920 pg/mL (5-100)
[2021-07-25 08:21] LABS: Device ROOM AIR; Modified Allen's Test Pass; Site Drawn LEFT RADIAL
[2021-07-25 08:21] LABS: Partial Thromboplastin Time 31.9 SECONDS (22.3-36.8)
[2021-07-25 08:22] LABS: INR 1.1; Prothrombin Time 13.8 Seconds (11.1-14.7)
--- NOTE | 2021-07-25 08:34 | PC.NURSE ---
pt to ct via wheelchair
[2021-07-25 09:03] LABS: Appearance Urine Clear (Clear); Bilirubin Urine Negative (Negative); Blood Urine Negative (Negative); Color Urine Yellow (Yellow); Glucose Urine UA Trace mg/dL (Negative); Ketones Urine Negative (Negative); Leukocyte Esterase Ur 2+ LEU/UL (Negative); Nitrate Urine Negative (Negative); Protein Urine 2+ mg/dL (Negative); Specific Grav Ur 1.015 (1.001-1.035); Urobilinogen Urine 0.2 mg/dL (<2.0); pH Urine 5.5 (5.0-9.0)
[2021-07-25 09:06] LABS: SARS-CoV-2 RNA PCR Negative
[2021-07-25 09:11] LABS: Bacteria Urine Trace /hpf; Mucus Urine Rare /lpf; Squamous Epithelial Cell Urine Few /hpf (Few); WBC Urine 51-75 /hpf
[2021-07-25 09:30] LABS: Add Urine Microscopic? YES
[2021-07-25 09:57] LABS: Troponin I 0.026 ng/mL (0.000-0.034)
[2021-07-25] MEDS: FUROSEMIDE INJ 40 MG/4 ML VIAL IV PUSH (10:50)
== END 2021-07-25 11:25 | disposition home or self-care (01) ==
PROVIDERS: Emergency Provider General Practice; PCP Family Medicine
DX: I50.32 Chronic diastolic (congestive) heart failure (principal); N39.0 Urinary tract infection, site not specified; I11.0 Hypertensive heart disease with heart failure; Z20.822 Contact with and (suspected) exposure to COVID-19; E11.42 Type 2 diabetes mellitus with diabetic polyneuropathy; E11.21 Type 2 diabetes mellitus with diabetic nephropathy; I25.10 Atherosclerotic heart disease of native coronary artery without angina pectoris; I70.0 Atherosclerosis of aorta; K86.1 Other chronic pancreatitis; I69.919 Unspecified symptoms and signs involving cognitive functions following unspecified cerebrovascular disease; K74.69 Other cirrhosis of liver; K76.6 Portal hypertension; G47.33 Obstructive sleep apnea (adult) (pediatric); M17.10 Unilateral primary osteoarthritis, unspecified knee; Z85.3 Personal history of malignant neoplasm of breast; Z90.49 Acquired absence of other specified parts of digestive tract; Z90.11 Acquired absence of right breast and nipple; Z98.49 Cataract extraction status, unspecified eye; Z96.659 Presence of unspecified artificial knee joint; Z79.4 Long term (current) use of insulin; K44.9 Diaphragmatic hernia without obstruction or gangrene; R93.3 Abnormal findings on diagnostic imaging of other parts of digestive tract; R18.8 Other ascites; I51.7 Cardiomegaly; I49.3 Ventricular premature depolarization; I44.7 Left bundle-branch block, unspecified
CPT/HCPCS: 36415; 36600; 71046; 71275; 80053; 81001; 82375; 82805; 83050; 83880; 84484; 85025; 85055; 85380; 85610; 85730; 87086; 93005; 96374; 99284; C9803; J1940; Q9967; U0003; U0005

== ENCOUNTER 2021-08-26 02:35 | Emergency (ER) | payer OTHER, SELFPAY ==
[2021-08-26] VITALS (9 sets, daily range): BP systolic 124–164; BP diastolic 49–69; PULSE 57–84; RESP 17–24; TEMP 36.8; O2SAT 92–98
--- NOTE | ~2021-08-26 | CT_ITS ---
EXAMINATION: CTA chest PE abdomen pel DATE: 08/26/2021 04:14 INDICATION: Dyspnea. TECHNIQUE: Computed tomography angiography (CTA) of the chest was performed with 100 mL Omnipaque-350 intravenous contrast timed to evaluate the pulmonary arteries. Coronal maximum intensity projection 3D-reconstructions were created by the technologist. Computed tomography (CT) of the abdomen and pelv is was performed with intravenous contrast. Automated exposure control and iterative reconstruction t echnique were employed. The dose-length product was 1924.88 mGy-cm. COMPARISON: Chest CT 07/25/2021, CT abdomen and pelvis 12/05/2020, 11/12/2018 FINDINGS: CTA chest: Calcified right lung nodules and calcified mediastinal lymph nodes are consistent with old granulomatous disease. There is mild atelectasis bilaterally. No pleural effusion. Cardiomegaly is n oted. There are coronary artery calcifications. The central pulmonary arteries are enlarged, consiste nt with pulmonary arterial hypertension. There is no pulmonary embolus. There are bridging endplate o steophytes at multiple levels in the spine, consistent with diffuse idiopathic skeletal hyperostosis (DISH). CT abdomen and pelvis: The liver demonstrates a nodular surface contour, consistent with cirrhosis. C alcifications in the liver and spleen are consistent with old granulomatous disease. The spleen is no rmal in size. There is a small sliding hiatal hernia. There is a portacaval shunt from superior mesen teric vein to inferior vena cava. There are calcifications in the pancreas. There is chronic hypoatte nuation in the head of the pancreas. There is mild fat stranding around the pancreas. These findings are consistent with acute on chronic pancreatitis. The pancreatic duct is normal in caliber. Left adr enal gland is normal. There are 2.2 cm and 1.6 cm masses in right adrenal gland measuring soft tissue attenuation, stable from 11/12/2018, consistent with adenomas. There is a 2.1 cm hemorrhagic cyst in right kidney. There is a 5 mm cyst in right kidney. Left kidney is normal. There is an anastomosis in the rectosigmoid. There is diverticulosis of the colon without evidence of diverticulitis. There are no dilated loops of bowel. The appendix is not visualized. There is a small volume of perihepatic as cites. There is mild periportal lymphadenopathy. There is severe lumbar spondylosis. IMPRESSION: 1. No pulmonary embolus. 2. Cirrhosis of the liver with portal venous hypertension. 3. Small volume of ascites. 4. Acute on chronic pancreatitis. 5. Mild periportal lymphadenopathy, likely reactive. 6. Small sliding hiatal hernia. Reviewed, dictated and finalized at location A.
--- NOTE | ~2021-08-26 | XR_ITS ---
EXAMINATION: XR chest 1V portable DATE: 08/26/2021 03:12 INDICATION: Dyspnea. TECHNIQUE: A single frontal view of the chest was obtained. COMPARISON: Chest CT 08/26/2021 FINDINGS: Calcified right lung nodules and calcified mediastinal lymph nodes are consistent with old granulomatous disease. No pleural effusion or pneumothorax. Cardiomegaly is noted. There are surgical clips in right axilla. IMPRESSION: 1. Cardiomegaly. Reviewed, dictated and finalized at location A. IMPRESSION: 1. Cardiomegaly.
--- NOTE | 2021-08-26 02:57 | ECG_ITS ---
Measurements Intervals [place] Rate: 62 P: 85 MD: 202 QRS: -36 QRSD: 169 T: 128 QT: 463 QTc: 473 Interpretive Statements SINUS RHYTHM VENTRICULAR PREMATURE COMPLEX LEFT AXIS DEVIATION BORDERLINE AV CONDUCTION DELAY LEFT BUNDLE BRANCH BLOCK ABNORMAL ECG Electronically Signed On 08-26-2021 9:14:40 CDT by Zack Ortiz D.O.
--- NOTE | 2021-08-26 03:01 | ED.GENADULT ---
HPI - General Adult General Chief complaint: Shortness of Breath/Dyspnea Stated complaint: SOB x2-3 days Time Seen by Provider: 08/26/21 02:52 History of Present Illness HPI narrative: Patient 81-year-old female who presents the emergency department with chief complaint of shortness of breath. Patient reports over the last several days she has been having increasing shortness of breath worse with exertion. The patient states she seen her primary care physician and was started on a low-dose of Lasix. Patient states that symptoms are not improved by anything reports that she feels as though she just cannot get a good deep breath. Patient denies chest pain Related Data Home Medications Medication Instructions Recorded Confirmed mekyiphw-paw-woaut ac 400 1 tablet PO DAILY 12/16/18 08/23/21 mcg-calcium carb 500 mg-vit K1 20 mcg tablet (Women's 50 Plus Daily Formula) Allergies Allergy/AdvReac Type Severity Reaction Status Date / Time No Known Allergies Allergy Unknown Verified 08/26/21 02:46 Review of Systems Review of Systems: A 10 system review of systems was completed on the patient and is negative except for what is stated in the HPI. Nursing and ancillary documentation was reviewed. 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) Cognitive impairment Constipation Diabetic nephropathy Diabetic neuropathy History of right breast cancer HTN (hypertension) HX: breast cancer Liver, cirrhosis, portal Lumbar spondylosis MDD (major depressive disorder), recurrent episode, severe Mild cognitive impairment with memory loss Non-compliance BRO (obstructive sleep apnea) Primary generalized (osteo)arthritis 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cial History Social History: Smoking status: Never smoker Second hand tobacco smoke exposure: No Alcohol intake: never Substance use: never Substance use type: does not use Additional living arrangements comments: Pt lives with her son. Gender identity (if verbalized by the patient): Female Sexual Orientation (if Verbalized by the Patient): Straight or Heterosexual Exam Narrative: GENERAL: Well-appearing, well-nourished, and in no acute distress. HEAD: Normocephalic, atraumatic. EYES: PERRLA and EOMI. ENT: Nares clear, no rhinorrhea or epistaxis. Mucous membranes moist. NECK: Supple. CHEST: Clear to auscultation. No respiratory distress. HEART: Regular rate and rhythm. No murmur heard. Normal peripheral pulses. ABDOMEN: Soft, nontender, nondistended, normal active bowel sounds. EXTREMITIES: Normal range of motion. +1 edema. SKIN: Warm, dry, no rash. NEURO: No focal deficits. Alert and oriented x3. PSYCH: Normal mood and affect. Course Vital Signs Vital signs: Vital Signs Temperature 36.8 C 08/26/21 02:42 Pulse Rate 62 08/26/21 02:42 Respiratory Rate 24 H
[2021-08-26] MEDS: ASPIRIN 81 MG CHEWABLE TABLET 324 MG PO (03:13)
[2021-08-26] MEDS: FUROSEMIDE INJ 40 MG/4 ML VIAL IV PUSH (03:15)
[2021-08-26 03:21] LABS: Basophils Percent Auto 0.5 % (0.2-1.2); Eosinophils Absolute Auto 0.1 K/mm3 (0-0.3); Eosinophils Percent Auto 1.4 % (0-4.4); Hematocrit 42.8 % (37.0-47.0); Hemoglobin 13.5 g/dL (12.0-15.0); Immature Granulocyte Absolute 0.01 K/mm3 (0.00-0.031); Immature Granulocyte Percent A 0.2 % (0-0.5); Immature Platelet Fraction Pct 5.8 % (0.9-11.2); Lymphocytes Absolute Auto 1.72 K/mm3 (0.9-3.2); Lymphocytes Percent Auto 29.3 % (18.3-44.2); Mean Corpuscular HGB Conc 31.5 g/dl (32-36); Mean Corpuscular Hemoglobin 27.9 pg (26-34); Mean Corpuscular Volume 88.4 fl (80-100); Mean Platelet Volume 10.9 fl (7.4-10.4); Monocytes Absolute Auto 0.6 K/mm3 (0.1-0.6); Monocytes Percent Auto 10.9 % (2.6-8.5); Neutrophils Absolute Auto 3.4 K/mm3 (1.3-6.7); Neutrophils Percent Auto 57.7 % (45.5-73.1); Platelet Count Result 93 k/mm3 (150-375); Red Blood Count 4.84 M/mm3 (4.2-5.4); White Blood Count 5.9 K/mm3 (4.5-10.0)
[2021-08-26 03:30] LABS: Alanine Aminotransferase 48 U/L (6-35); Albumin Level 3.5 g/dL (3.5-5.1); Alkaline Phosphatase 111 U/L (38-126); Anion Gap 5 mmol/L (8-16); Aspartate Amino Transferase 56 U/L (14-36); Bilirubin,Total 0.8 mg/dL (0.2-1.3); Blood Urea Nitrogen 22 mg/dL (7-17); Calcium 9.2 mg/dL (8.4-10.2); Carbon Dioxide 28 mmol/L (22-30); Chloride 107 mmol/L (98-107); Estimated CRCL calculation 43 ml/min; Estimated Glomerular Filt Rate 60; Glucose 243 mg/dL (65-110); INR 1.2; Lipase 418 U/L (23-300); Potassium 3.9 mmol/L (3.4-5.0); Prothrombin Time 14.3 Seconds (11.1-14.7); Sodium 140 mmol/L (137-145)
[2021-08-26 03:31] LABS: Partial Thromboplastin Time 32.4 SECONDS (22.3-36.8)
[2021-08-26 03:42] LABS: NT Pro B Type Natriuretic Pept 619 pg/mL (5-100); Troponin I 0.029 ng/mL (0.000-0.034)
[2021-08-26 03:48] LABS: Appearance Urine Clear (Clear); Bilirubin Urine Negative (Negative); Blood Urine Negative (Negative); Color Urine Yellow (Yellow); Glucose Urine UA Negative (Negative); Ketones Urine Negative (Negative); Leukocyte Esterase Ur 3+ LEU/UL (Negative); Nitrate Urine Negative (Negative); Protein Urine Negative (Negative); Urobilinogen Urine 0.2 mg/dL (<2.0)
[2021-08-26 03:52] LABS: Add Urine Microscopic? YES; Bacteria Urine Trace /hpf; Mucus Urine Rare /lpf; Squamous Epithelial Cell Urine Rare /hpf (Few); WBC Urine 31-50 /hpf
[2021-08-26 03:56] LABS: SARS-CoV-2 RNA PCR Negative
[2021-08-26 06:42] LABS: Troponin I 0.026 ng/mL (0.000-0.034)
== END 2021-08-26 07:06 | disposition home or self-care (01) ==
PROVIDERS: Emergency Provider Emergency Medicine; PCP Family Medicine
DX: N39.0 Urinary tract infection, site not specified (principal); I50.32 Chronic diastolic (congestive) heart failure; Z20.822 Contact with and (suspected) exposure to COVID-19; I70.0 Atherosclerosis of aorta; I11.0 Hypertensive heart disease with heart failure; K86.1 Other chronic pancreatitis; E11.21 Type 2 diabetes mellitus with diabetic nephropathy; E11.42 Type 2 diabetes mellitus with diabetic polyneuropathy; I69.911 Memory deficit following unspecified cerebrovascular disease; K74.69 Other cirrhosis of liver; G47.33 Obstructive sleep apnea (adult) (pediatric); M17.10 Unilateral primary osteoarthritis, unspecified knee; Z85.3 Personal history of malignant neoplasm of breast; Z90.49 Acquired absence of other specified parts of digestive tract; Z90.11 Acquired absence of right breast and nipple; Z98.49 Cataract extraction status, unspecified eye; Z96.659 Presence of unspecified artificial knee joint; Z79.4 Long term (current) use of insulin
CPT/HCPCS: 36415; 71045; 71275; 74177; 80053; 81001; 83690; 83880; 84484; 85025; 85055; 85610; 85730; 87086; 87088; 93005; 96374; 99284; A9270; C9803; J1940; Q9967; U0003; U0005

== ENCOUNTER 2021-09-30 09:03 | Observation (INO) | payer OTHER, SELFPAY ==
[2021-09-30] VITALS (22 sets, daily range): BP systolic 137–186; BP diastolic 57–85; PULSE 56–73; RESP 14–27; TEMP 36.3–36.8; O2SAT 91–98
--- NOTE | ~2021-09-30 | XR_ITS ---
EXAMINATION: XR chest 2V DATE: 09/30/2021 09:52 INDICATION: Lower limb swelling and shortness of breath TECHNIQUE: PA and lateral views of the chest are obtained. COMPARISON: 08/26/2021 FINDINGS: There are minimal airspace opacities of the lower lung zones. Trace pleural effusions are p resent. There is no pneumothorax. The cardiomediastinal silhouette is normal. There are bridging oste ophytes at multiple levels in the spine, consistent with diffuse idiopathic skeletal hyperostosis (DI SH). Surgical clips are noted in the right axilla. There are calcified right lower paratracheal lymph nodes, consistent with old granulomatous disease. IMPRESSION: 1. Minimal airspace opacities of the lower lung zones, consistent with pneumonia and/or atelectasis a nd/or mild pulmonary edema. 2. Trace pleural effusions. Reviewed, dictated and finalized at location B. IMPRESSION: 1. Minimal airspace opacities of the lower lung zones, consistent with pneumoni a and/or atelectasis and/or mild pulmonary edema. 2. Trace pleural effusions.
--- NOTE | 2021-09-30 09:08 | ECG_ITS ---
Measurements Intervals [place] Rate: 66 P: 81 VA: 202 QRS: -20 QRSD: 169 T: 133 QT: 455 QTc: 477 Interpretive Statements SINUS RHYTHM LEFT BUNDLE BRANCH BLOCK ABNORMAL ECG COMPARED TO ECG 08/26/2021 03:03:55 NO SIGNIFICANT CHANGES Electronically Signed On 09-30-2021 16:24:50 CDT by Nader Ruff M.D.
[2021-09-30 09:22] LABS: Basophils Percent Auto 0.4 % (0.2-1.2); Eosinophils Absolute Auto 0.1 K/mm3 (0-0.3); Eosinophils Percent Auto 1.2 % (0-4.4); Hematocrit 41.4 % (37.0-47.0); Hemoglobin 13.1 g/dL (12.0-15.0); Immature Granulocyte Absolute 0.01 K/mm3 (0.00-0.031); Immature Granulocyte Percent A 0.2 % (0-0.5); Immature Platelet Fraction Pct 4.2 % (0.9-11.2); Lymphocytes Absolute Auto 1.06 K/mm3 (0.9-3.2); Lymphocytes Percent Auto 21.9 % (18.3-44.2); Mean Corpuscular HGB Conc 31.6 g/dl (32-36); Mean Corpuscular Hemoglobin 28.4 pg (26-34); Mean Corpuscular Volume 89.8 fl (80-100); Mean Platelet Volume 10.5 fl (7.4-10.4); Monocytes Absolute Auto 0.5 K/mm3 (0.1-0.6); Monocytes Percent Auto 9.9 % (2.6-8.5); Neutrophils Absolute Auto 3.2 K/mm3 (1.3-6.7); Neutrophils Percent Auto 66.4 % (45.5-73.1); Platelet Count Result 91 k/mm3 (150-375); Red Blood Count 4.61 M/mm3 (4.2-5.4); Red Cell Distribution Width 15.9 % (11.5-14.5); White Blood Count 4.8 K/mm3 (4.5-10.0)
[2021-09-30 09:31] LABS: INR 1.1; Prothrombin Time 14.2 Seconds (11.1-14.7)
[2021-09-30 09:32] LABS: Partial Thromboplastin Time 30.4 SECONDS (22.3-36.8)
[2021-09-30 09:33] LABS: Alanine Aminotransferase 31 U/L (6-35); Albumin Level 3.5 g/dL (3.5-5.1); Alkaline Phosphatase 114 U/L (38-126); Anion Gap 9 mmol/L (8-16); Aspartate Amino Transferase 43 U/L (14-36); Blood Urea Nitrogen 12 mg/dL (7-17); Calcium 8.7 mg/dL (8.4-10.2); Carbon Dioxide 27 mmol/L (22-30); Chloride 102 mmol/L (98-107); Estimated CRCL calculation 63 ml/min; Estimated Glomerular Filt Rate > 60; Glucose 289 mg/dL (65-110); Sodium 138 mmol/L (137-145)
--- NOTE | 2021-09-30 09:35 | ED.SOB ---
HPI - SOB/Dyspnea General Chief Complaint: Shortness of Breath/Dyspnea Stated Complaint: shortness of breath Time Seen by Provider: 09/30/21 09:35 History of Present Illness HPI Narrative: Patient presents emergency department from home for shortness of breath. Patient states that symptoms began last night. States has had a cough this been nonproductive also notes swelling in her ankles. She denies any fevers or chills chest pain abdominal pain nausea vomiting or any other symptoms. Patient does take Lasix at home which she has been taking Related Data Home Medications Medication Instructions Recorded Confirmed kicxholc-aij-ikamo ac 400 1 tablet PO DAILY 12/16/18 08/23/21 mcg-calcium carb 500 mg-vit K1 20 mcg tablet (Women's 50 Plus Daily Formula) Allergies Allergy/AdvReac Type Severity Reaction Status Date / Time No Known Allergies Allergy Unknown Verified 08/26/21 02:46 Review of Systems Review of Systems: Gen.: Denies fevers or chills ENT: Denies congestion Respiratory: Reports shortness of breath CV: Denies chest pain or palpitations GI: Denies abdominal pain nausea, emesis or diarrhea Musculoskeletal: Denies back pain or muscle pain Neuro: Denies numbness, tingling, weakness or focal weakness Skin: Denies rash Except as documented, all other systems reviewed and negative [facility] Past Medical History Medical History Arthritis of knee Atherosclerosis of aorta Atherosclerotic heart disease of [place] coronary artery without angina pectoris Chronic diastolic (congestive) heart failure Chronic pancreatitis 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) Cognitive impairment Constipation Diabetic nephropathy Diabetic neuropathy History of right breast cancer HTN (hypertension) HX: breast cancer Liver, cirrhosis, portal Lumbar spondylosis MDD (major depressive disorder), recurrent episode, severe Mild cognitive impairment with memory loss Non-compliance BRO (obstructive sleep apnea) Primary generalized (osteo)arthritis 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cial History Social History: Smoking status: Never smoker Second hand tobacco smoke exposure: No Alcohol intake: never Substance use: never Substance use type: does not use Additional living arrangements comments: Pt lives with her son. Gender identity (if verbalized by the patient): Female Sexual Orientation (if Verbalized by the Patient): Straight or Heterosexual Exam Narrative: APPEARANCE: No acute distress, nontoxic, resting in bed EYES: EOMI HEENT: Normocephalic, atraumatic, OMM RESPIRATORY: No respiratory distress crackles in the bilateral lung bases no wheezing CARDIOVASCULAR: Regular rate and rhythm without murmurs rubs or gallops. ABDOMINAL: Soft, nontender, nondistended, no rebound or guarding MUSCULOSKELETAl: Moves all extremities. No clubbing, cyanosis 3+ edema the bilateral lower extremities NEURO: Awake and alert. Following commands, speech normal, no focal deficits SKIN:: Warm, dry. No rashes lesions or abrasions PSYCHIATRIC: Normal affect/mood, Course Course Emergency Course:
[2021-09-30 09:43] LABS: NT Pro B Type Natriuretic Pept 1250 pg/mL (5-100); Troponin I 0.027 ng/mL (0.000-0.034)
[2021-09-30 10:39] LABS: SARS-CoV-2 RNA PCR Negative
[2021-09-30] MEDS: FUROSEMIDE INJ 40 MG/4 ML VIAL IV PUSH (12:05)
--- NOTE | 2021-09-30 12:52 | ADMGEN ---
This patient, Marilyn Baker, was admitted to Medical Room 342-01. Patient/family oriented to hospital policies and general routines including ID bracelet, bed and alarms, visiting hours, pain management, procedures, bathroom and other care routines, personal items, smoking policy, room service/diet, and visiting hours. Information on how to activate the Rapid Response Team has been discussed. Patient/Family are encouraged to report perceived risks to care and to ask questions if they do not understand what they are told or what they should do.
--- NOTE | 2021-09-30 13:57 | PM.IMHP ---
H&P: HPI History of Present Illness Date/Time: 09/30/21 13:57 Chief Complaint: Shortness of breath Narrative: this is a 81-year-old female patient who has a history of congestive heart failure and diabetes. The patient stated that she became short of breath overnight. The patient also noticed increased swelling to her lower extremities. The patient stated that she has been trying to cut out fast food and she realizes that she should need [employer] fries. She has no fever chills. She has been taking her Lasix at home. Her BNP was noted to be 1250 today. troponins are negative x2. She denies any chest pain. COVID is negative. Chest x-ray was read as the following 1. Minimal airspace opacities of the lower lung zones, consistent with pneumonia and/or atelectasis and/or mild pulmonary edema. 2. Trace pleural effusions. she was given IV Lasix in the emergency room. Her blood sugar was noted to be 289. The patient is being admitted to observation status on 09/30/2021. Review of Systems Review of Systems: See HPI All systems reviewed & are unremarkable except as noted in HPI and below Constitutional: Constitutional: Reports as per HPI and Reports no additional constitutional complaints Eyes: Eyes: Reports as per HPI and Reports no additional eye complaints ENT: Reports system reviewed and no additional complaints, except as documented and Reports Normal hearing present Cardiovascular: Cardiovascular: Reports no additional cardiovascular complaints Respiratory: Respiratory: Reports no additional respiratory complaints and Reports no additional respiratory complaints Gastrointestinal: Gastrointestinal: Reports as per HPI and Reports no additional gastrointestinal complaints Musculoskeletal: Musculoskeletal: Reports no additional musculoskeletal complaints Integumentary/Breasts: Skin/Breast: Reports system reviewed and no additional complaints, except as docu and Reports as per HPI Neurologic: Reports system reviewed and no additional complaints, except as documented, Reports as per HPI and Reports Normal hearing present Psychiatric: Psychiatric: Reports no additional psychiatric complaints and Reports as per HPI Endocrine: Endocrine: Reports no additional endocrine complaints Hematologic/Lymphatic: Hematologic/Lymphatic: Reports no additional hematologic/lymphatic complaints Allergic/Immunologic: Allergic/Immunologic: Reports no additional allergic/immunologic complaints [facility] Past Medical History Medical History Arthritis of knee Atherosclerosis of aorta Atherosclerotic heart disease of [place] coronary artery without angina pectoris Chronic diastolic (congestive) heart failure Chronic pancreatitis 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) Cognitive impairment Constipation Diabetic nephropathy Diabetic neuropathy History of right breast cancer HTN (hypertension) HX: breast cancer Liver, cirrhosis, portal Lumbar spondylosis MDD (major depressive disorder), recurrent episode, severe Mild cognitive impairment with memory loss Non-compliance BRO (obstructive sleep apnea) Primary generalized (osteo)arthritis 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
[2021-09-30 16:03] LABS: Troponin I 0.022 ng/mL (0.000-0.034)
[2021-09-30] MEDS: hydrALAZINE HCL 25 MG TABLET PO (16:26)
[2021-09-30] MEDS: MEMANTINE 5 MG TABLET PO (16:26)
[2021-09-30 16:32] LABS: Glucose Point of Care 383 mg/dl (65-105)
[2021-09-30] MEDS: INSULIN ASPART (*BKC) 100 UNITS/ML SUB-Q (16:33)
[2021-09-30] MEDS: INSULIN GLARGINE (*BKC) 100 UNITS/ML 60 UNITS SUB-Q (20:43)
[2021-09-30 20:56] LABS: Glucose Point of Care 248 mg/dl (65-105)
[2021-09-30 21:24] LABS: Appearance Urine Clear (Clear); Bilirubin Urine Negative (Negative); Blood Urine Negative (Negative); Color Urine Yellow (Yellow); Glucose Urine UA Negative (Negative); Ketones Urine Negative (Negative); Leukocyte Esterase Ur 1+ LEU/UL (Negative); Nitrate Urine Negative (Negative); Protein Urine 2+ mg/dL (Negative)
[2021-09-30 21:34] LABS: Bacteria Urine Trace /hpf; Mucus Urine Rare /lpf; Squamous Epithelial Cell Urine Rare /hpf (Few); WBC Urine 21-30 /hpf
[2021-09-30 21:35] LABS: Add Urine Microscopic? YES
[2021-10-01] VITALS (10 sets, daily range): BP systolic 125–158; BP diastolic 44–93; PULSE 58–71; RESP 18–20; TEMP 35.6–36.7; O2SAT 91–95
--- NOTE | 2021-10-01 | ECHO_ITS ---
Patient Info Name: Marilyn Baker Age: 81 years : 1940 Gender: Female Ht: 64 in Wt: 174 lbs BSA: 1.91 m2 HR: 62 bpm BP: 158 / 54 mmHg Heart Rhythm: Sinus Rhythm Technical Quality: Fair Exam Date: 10/01/2021 7:59 AM Exam Location: [facility] Patient Status: Inpatient Admit Date: 09/30/2021 Staff Ordering Physician: Sherry Major NP Director Of Operations For Therapy: Jannie Garcia RDCS Attending Provider: Sheba Castro DO Referring Physician: Pedrito SHETH; Exam Type: CA echo doppler color flow Study Info Indications - CHF Complete two-dimensional, color flow and Doppler transthoracic echocardiogram is performed. Summary 1. Complete two-dimensional, color flow and Doppler transthoracic echocardiogram is performed. 2. Left ventricular chamber dimension is normal. 3. Left ventricular systolic function is normal, estimated at 60-65%. 4. There is moderately increased left ventricular wall thickness. 5. The left ventricular diastolic function is grade II diastolic dysfunction. 6. E/e' 22 is elevated. 7. Left atrial chamber dimension is moderately enlarged. 8. Right atrial chamber dimension is mildly enlarged. 9. There is moderate aortic valve sclerosis. 10. The mitral valve has moderately calcified annulus. 11. There is mild to moderate mitral valve regurgitation. 12. There is mild tricuspid valve regurgitation. 13. Mild pulmonary hypertension, estimated pulmonary arterial systolic pressure is 40 mmHg. Left Ventricle E/e' 22 is elevated. Left ventricular chamber dimension is normal. Left ventricular systolic function is normal, estimated at 60-65%. There is moderately increased left ventricular wall thickness. The left ventricular diastolic function is grade II diastolic dysfunction. Right Ventricle Right ventricular systolic function is normal and with normal TAPSE 1.7 cm. Right ventricular chamber dimension is normal. Left Atria Left atrial chamber dimension is moderately enlarged. Right Atria Right atrial chamber dimension is mildly enlarged. Aortic Valve The aortic valve is trileaflet. There is moderate aortic valve sclerosis. There is no aortic valve stenosis. There is no aortic valve regurgitation. Pulmonic Valve There is no pulmonic regurgitation. Mitral Valve The mitral valve has moderately calcified annulus. There is no mitral valve stenosis. There is mild to moderate mitral valve regurgitation. Tricuspid Valve There is mild tricuspid valve regurgitation. Mild pulmonary hypertension, estimated pulmonary arterial systolic pressure is 40 mmHg. Pericardium/Pleural There is no pericardial effusion. Inferior Vena Cava Normal inferior vena cava with >50% collapse upon inspiration consistent with normal right atrial pressure, 5 mmHg. Aorta The aortic root size at the sinus of Valsalva is normal. Left Ventricular Outflow Tract Name Value Normal LVOT 2D LVOT Diameter 1.9 cm LVOT Doppler LVOT Peak Gradient 6 mmHg LVOT Mean Gradient 3 mmHg LVOT VTI 28 cm
[2021-10-01 05:57] LABS: Basophils Percent Auto 0.6 % (0.2-1.2); Eosinophils Absolute Auto 0.1 K/mm3 (0-0.3); Eosinophils Percent Auto 2.3 % (0-4.4); Hematocrit 38.5 % (37.0-47.0); Hemoglobin 12.4 g/dL (12.0-15.0); Immature Granulocyte Absolute 0.01 K/mm3 (0.00-0.031); Immature Granulocyte Percent A 0.2 % (0-0.5); Immature Platelet Fraction Pct 5.2 % (0.9-11.2); Lymphocytes Percent Auto 25.1 % (18.3-44.2); Mean Corpuscular HGB Conc 32.2 g/dl (32-36); Mean Corpuscular Hemoglobin 28.2 pg (26-34); Mean Corpuscular Volume 87.7 fl (80-100); Mean Platelet Volume 10.2 fl (7.4-10.4); Monocytes Absolute Auto 0.7 K/mm3 (0.1-0.6); Neutrophils Absolute Auto 2.8 K/mm3 (1.3-6.7); Neutrophils Percent Auto 57.8 % (45.5-73.1); Platelet Count Result 86 k/mm3 (150-375); Red Blood Count 4.39 M/mm3 (4.2-5.4); Red Cell Distribution Width 15.6 % (11.5-14.5); White Blood Count 4.8 K/mm3 (4.5-10.0)
[2021-10-01 06:04] LABS: Anion Gap 6 mmol/L (8-16); Blood Urea Nitrogen 13 mg/dL (7-17); Calcium 8.9 mg/dL (8.4-10.2); Carbon Dioxide 28 mmol/L (22-30); Chloride 102 mmol/L (98-107); Estimated CRCL calculation 64 ml/min; Estimated Glomerular Filt Rate > 60; Glucose 98 mg/dL (65-110); Potassium 3.2 mmol/L (3.4-5.0); Sodium 136 mmol/L (137-145)
[2021-10-01 07:11] LABS: Hemoglobin A1C 8.6 % (<5.7)
[2021-10-01 08:45] LABS: Glucose Point of Care 101 mg/dl (65-105)
[2021-10-01] MEDS: INSULIN GLARGINE (*BKC) 100 UNITS/ML 60 UNITS SUB-Q ×2 (09:15→20:36)
[2021-10-01] MEDS: amLODIPine BESYLATE 5 MG TABLET 10 MG PO (09:18)
[2021-10-01] MEDS: MEMANTINE 5 MG TABLET PO ×2 (09:18→20:34)
[2021-10-01] MEDS: NEBIVOLOL HCL 5 MG TABLET PO (09:18)
[2021-10-01] MEDS: hydrALAZINE HCL 25 MG TABLET PO ×2 (09:18→20:34)
[2021-10-01] MEDS: PARoxetine 20 MG TABLET PO (09:19)
[2021-10-01] MEDS: THERAPEUTIC MULTIVITAMINS/MINERALS TAB (*BKC) 1 TABLET PO (09:19)
[2021-10-01] MEDS: OLMESARTAN MEDOXOMIL 20 MG TABLET 40 MG PO (09:19)
[2021-10-01] MEDS: ATORVASTATIN 20 MG TABLET PO (09:19)
[2021-10-01] MEDS: POTASSIUM CHLORIDE 20 MEQ TABLET 40 MEQ PO (09:19)
[2021-10-01] MEDS: FUROSEMIDE INJ 40 MG/4 ML VIAL IV PUSH (09:20)
--- NOTE | 2021-10-01 10:15 | PM.IMPN ---
Progress Note: A&P Assessment and Plan (1) CHF (congestive heart failure): Code(s): I50.9 - Heart failure, unspecified Status: Acute Assessment and Plan: - currently on IV Lasix. - Echo has been ordered - strict intake and output - daily weights - CHF training - discussed diet and avoiding fast food and salty food. - Her amlodipine may be causing her feet to swell as well. - she is on Bystolic - She is on Benicar 10/01/2021 interval history: 81-year-old female presented with complaint of shortness of breath and and swelling of lower extremity patient states sees not been watching her diet bed eating fast food, high salt diet, echo done today showed preserved LV function with EF 65% and grade 2 diastolic dysfunction most likely patient has acute on chronic diastolic congestive heart failure, and is started on IV Lasix and was low-salt diet, will monitor Is and Os, will have a PT OT evaluate the patient, will benefit going to SNF for rehab. (2) Type 2 diabetes mellitus with diabetic chronic kidney disease: Code(s): E11.22 - Type 2 diabetes mellitus with diabetic chronic kidney disease Status: Acute Assessment and Plan: - Continue with Lantus - check A1c - sliding scale insulin with Accu-Cheks AC and HS (3) Liver cirrhosis: Code(s): K74.60 - Unspecified cirrhosis of liver Status: Acute Assessment and Plan: - non alcoholic (4) Postherpetic neuralgia: Code(s): B02.29 - Other postherpetic nervous system involvement Status: Acute Assessment and Plan: - patient appears to have neuropathy to her ear the lower extre mities .- Stricter diabetic control (5) BRO (obstructive sleep apnea): Code(s): G47.33 - Obstructive sleep apnea (adult) (pediatric) Status: Acute Assessment and Plan: - patient does not use a CPAP or BiPAP machine. - The patient has a mouthpiece which is not a fit appropriately. - I encouraged the patient to look at inspire Implanted device as a no other option for her sleep apnea. (6) HTN (hypertension): Code(s): I10 - Essential (primary) hypertension Status: Acute Assessment and Plan: - the patient is on Norvasc which may be causing her to have increased swelling to her feet. - Continue hydralazine - continue Benicar - continue bypass time Plan the patient appears to be on Namenda for possible early dementia. She is also on Paxil as well. She denies any depression or anxiety. Subjective Date/time seen: 10/01/21 10:15 Shortness of breath Narrative: HPI ?this is a 81-year-old female patient who has a history of congestive heart failure and diabetes.? The patient stated that she became short of breath overnight.? The patient also? noticed increased swelling? to her lower extremities.? The patient stated that she has been trying to cut out fast food and she realizes that she should need [employer] [place] fries.? She has no fever chills.? She has been taking her Lasix at home.? Her BNP was noted to be 1250 today. troponins are negative x2.? She denies any chest pain.? COVID is negative.? ? Chest x-ray was read as the following 1. Minimal airspace opacities of the lower lung zones, consistent with pneumonia and/or atelectasis and/or mild pulmonary edema. 2. Trace pleural effusions. she was given IV Lasix in the emergency room.? Her blood sugar was noted to be 289.? The patient is being admitted to observation status on 09/30/2021. 10/01/2021 interval history: 81-year-old female presented with complaint of shortness of breath and and swelling of lower extremity patient states sees not been watching her diet bed eating fast food, high salt diet, echo done today showed preserved LV function with EF 65% and grade 2 diastolic dysfunction most likely patient has acute on chronic diastolic congestive heart failure, and is started on IV Lasix and was low-salt diet, will monitor Is and Os, will have a PT OT e
[2021-10-01 12:21] LABS: Glucose Point of Care 242 mg/dl (65-105)
[2021-10-01] MEDS: INSULIN ASPART (*BKC) 100 UNITS/ML SUB-Q (12:32)
[2021-10-01 16:42] LABS: Glucose Point of Care 171 mg/dl (65-105)
[2021-10-01 20:45] LABS: Glucose Point of Care 189 mg/dl (65-105)
[2021-10-02] VITALS: PULSE 62
[2021-10-02 04:00] VITALS: PULSE 72
[2021-10-02 05:53] LABS: Hematocrit 39.9 % (37.0-47.0); Hemoglobin 12.7 g/dL (12.0-15.0); Immature Platelet Fraction Pct 5.7 % (0.9-11.2); Mean Corpuscular HGB Conc 31.8 g/dl (32-36); Mean Corpuscular Hemoglobin 28.1 pg (26-34); Mean Corpuscular Volume 88.3 fl (80-100); Mean Platelet Volume 10.5 fl (7.4-10.4); Platelet Count Result 99 k/mm3 (150-375); Red Blood Count 4.52 M/mm3 (4.2-5.4); Red Cell Distribution Width 15.8 % (11.5-14.5); White Blood Count 5.8 K/mm3 (4.5-10.0)
[2021-10-02 06:00] VITALS: BP 131/43; PULSE 60; RESP 16; TEMP 36.8; O2SAT 99
[2021-10-02 06:06] LABS: Anion Gap 6 mmol/L (8-16); Blood Urea Nitrogen 19 mg/dL (7-17); Calcium 8.6 mg/dL (8.4-10.2); Carbon Dioxide 27 mmol/L (22-30); Chloride 106 mmol/L (98-107); Estimated CRCL calculation 56 ml/min; Estimated Glomerular Filt Rate > 60; Glucose 56 mg/dL (65-110); Potassium 3.5 mmol/L (3.4-5.0); Sodium 139 mmol/L (137-145)
[2021-10-02 06:47] LABS: Glucose Point of Care 98 mg/dl (65-105)
[2021-10-02 08:00] VITALS: PULSE 62
[2021-10-02 08:05] LABS: Glucose Point of Care 79 mg/dl (65-105)
[2021-10-02] MEDS: hydrALAZINE HCL 25 MG TABLET PO (08:38)
[2021-10-02 08:39] VITALS: PULSE 64
[2021-10-02] MEDS: NEBIVOLOL HCL 5 MG TABLET PO (08:39)
[2021-10-02] MEDS: OLMESARTAN MEDOXOMIL 20 MG TABLET 40 MG PO (08:39)
[2021-10-02] MEDS: PARoxetine 20 MG TABLET PO (08:39)
[2021-10-02] MEDS: ATORVASTATIN 20 MG TABLET PO (08:39)
[2021-10-02] MEDS: THERAPEUTIC MULTIVITAMINS/MINERALS TAB (*BKC) 1 TABLET PO (08:39)
[2021-10-02] MEDS: amLODIPine BESYLATE 5 MG TABLET 10 MG PO (08:39)
[2021-10-02] MEDS: FUROSEMIDE INJ 40 MG/4 ML VIAL IV PUSH (08:42)
[2021-10-02] MEDS: MEMANTINE 5 MG TABLET PO (08:42)
[2021-10-02 11:56] LABS: Glucose Point of Care 168 mg/dl (65-105)
--- NOTE | 2021-10-02 11:57 | PCDIET ---
Addendum entered by Alison Mullen RN 10/02/21 12:09: igniter capper, Magalys was able to meet with the patient at bedside before discharge. I informed the son via telephone when he called for an update and will provide a follow up phone number to contact the education department if the son has further questions. Original Note: igniter capper not available to see patient before discharge. Patient has been advised to follow up with computer lab assistant outpatient. Patient has been educated on the importance of monitoring her blood sugars, sign and symptoms, food choices, compliance to medication and when to seek medical attention. Patient and son verbalizes understanding. Spoke with the son via telephone this am
--- NOTE | 2021-10-02 12:09 | PM.DS ---
DS: Admitting Diagnosis Discharge Date 11/02/2021 Admitting Diagnosis shortness of breath DS: Summary Hospital Course Reason for hospitalization: ?Shortness of breath Narrative: ?this is a 81-year-old female patient who has a history of congestive heart failure and diabetes.? The patient stated that she became short of breath overnight.? The patient also? noticed increased swelling? to her lower extremities.? The patient stated that she has been trying to cut out fast food and she realizes that she should need [employer] fries.? She has no fever chills.? She has been taking her Lasix at home.? Her BNP was noted to be 1250 today. troponins are negative x2.? She denies any chest pain.? COVID is negative.? ? Chest x-ray was read as the following 1. Minimal airspace opacities of the lower lung zones, consistent with pneumonia and/or atelectasis and/or mild pulmonary edema. 2. Trace pleural effusions. she was given IV Lasix in the emergency room.? Her blood sugar was noted to be 289.? The patient is being admitted to observation status on 09/30/2021. Hospital Course: 81-year-old female presented with complaint of shortness of breath and and swelling of lower extremity patient states sees not been watching her diet bed eating fast food,? high salt diet,? echo done today showed preserved LV function with EF 65% and? grade 2 diastolic dysfunction most likely patient has acute on chronic diastolic congestive heart failure, and is started on IV Lasix and was? low-salt diet, will monitor Is and Os,? will have a PT OT evaluate the patient, will benefit going to SNF for rehab.? Patient instructed to avoid fast food and high salt food, take her medication as given, patient to follow up with her primary care provider as soon as possible, patient is instructed if any symptoms worsen to go to nearest ER. Patient to monitor her blood sugars closely and follow up with her primary care provider environmental educator, will increase lasix to 20 mg daily. today patient clinically stable and now to her baseline, will discharge the patient home today Time Spent with Patient Time attestation: Total time spent providing and/or coordinating discharge services: Exam Narrative: Patient is comfortable, NAD HEENT: eyes are clear and none icteric LUNGS: bilateral fair air entry with rales and rhonchi ABD: BS+ distended Lower extremities: edema SKIN: nonjaundiced Neuro: grossly intact. DS: Data Data Completed and Pending Labs on day of discharge: Labs from last 24 hours 10/02/21 10/02/21 10/02/21 11:52 07:58 06:45 WBC RBC Hgb Hct MCV MCH MCHC RDW Plt Count MPV % Immature Plt Fraction Sodium Potassium Chloride Carbon Dioxide Anion Gap BUN Creatinine Estim Creat Clear Calc Estimated GFR Glucose POC Capillary Glucose 168 H 79 98 Calcium 10/02/21 10/02/21 10/01/21 05:26 05:26 19:59 WBC 5.8 RBC 4.52 Hgb 12.7 Hct 39.9 MCV 88.3 MCH 28.1 MCHC 31.8 L RDW 15.8 H Plt Count 99 L MPV 10.5 H % Immature Plt Fraction 5.7 Sodium 139 Potassium 3.5 Chloride 106 Carbon Dioxide 27 Anion Gap 6 L BUN 19 H Creatinine 0.70 Estim Creat Clear Calc 56 Estimated GFR > 60 Glucose 56 L* POC Capillary Glucose 189 H Calcium 8.6 10/01/21 10/01/21 16:36 12:16 WBC RBC Hgb Hct MCV MCH MCHC RDW Plt Count MPV % Immature Plt Fraction Sodium Potassium Chloride Carbon Dioxide Anion Gap BUN Creatinine Estim Creat Clear Calc Estimated GFR Glucose POC Capillary Glucose 171 H 242 H Calcium Discharge Plan Discharge Attending physician on discharge: Farshad Camacho Consulting providers: Sherry Major ; Nader Ruff ; Gilberto Goldsmith ; Zack Ortiz Discharging Clinician: Farshad Camacho Patient Disposition: Home, Self-Care Activit
[2021-10-02 13:01] VITALS: BMI 31.3
== END 2021-10-02 14:45 | disposition home or self-care (01) ==
LOC: ANHED 12:04 → ANH3MED 14:42
PROVIDERS: Nurse Practitioner; Admitting Provider Student in an Organized Health Care Education/Training Program; Emergency Provider Emergency Medicine; PCP Family Medicine; Visit Provider Family Medicine
DX: R06.02 Shortness of breath (principal); I50.32 Chronic diastolic (congestive) heart failure; I25.10 Atherosclerotic heart disease of native coronary artery without angina pectoris; I69.319 Unspecified symptoms and signs involving cognitive functions following cerebral infarction; E11.40 Type 2 diabetes mellitus with diabetic neuropathy, unspecified; I10 Essential (primary) hypertension; Z85.3 Personal history of malignant neoplasm of breast; G47.33 Obstructive sleep apnea (adult) (pediatric); R22.43 Localized swelling, mass and lump, lower limb, bilateral; Z79.4 Long term (current) use of insulin; K74.60 Unspecified cirrhosis of liver; B02.29 Other postherpetic nervous system involvement; E11.21 Type 2 diabetes mellitus with diabetic nephropathy; Z20.822 Contact with and (suspected) exposure to COVID-19
CPT/HCPCS: 36415; 71046; 80048; 80053; 81001; 82948; 83036; 83880; 84484; 85025; 85027; 85055; 85610; 85730; 87086; 93005; 93306; 96374; 96376; 99285; A9270; C9803; G0378; J1815; J1940; U0003; U0005

== ENCOUNTER 2021-11-18 10:50 | Outpatient (CLI) | payer OTHER, SELFPAY ==
--- NOTE | ~2021-11-18 | XR_ITS ---
EXAM: XR lumbar spine 6V w bending DATE: 11/18/2021 11:25 HISTORY: M54.50 - Low back pain, unspecified . COMPARISON: 11/16/2020. FINDINGS: Lumbar scoliosis. 5 nonrib-bearing lumbar-type vertebral bodies. Pedicles intact. Severe o steopenia. Minimal 2-3 millimeter retrolistheses L1-2 and L2-3 and a 5 rmm retrolisthesis at L5-S1 th at are stable in flexion and extension. 7 mm anterolisthesis at L4-5 that increases to 12 mm in flexi on, stable in extension. Limited oblique views preclude accurate evaluation for pars defects. Multile elvis mild height loss and concave superior endplate deformities. Severe disc narrowing and marginal os teophytosis at all levels. Severe multilevel facet hypertrophy and sclerosis. No fracture or dislocat ion. Suture line projecting over the pelvis. IMPRESSION: Dynamic, grade 2 anterolisthesis at L4-5. Stable grade 1 retrolistheses at L1-2, L2-3, an d L5-S1. Multilevel severe degenerative disc disease and facet arthropathy. Reviewed, dictated and finalized at location K. IMPRESSION: Dynamic, grade 2 anterolisthesis at L4-5. Stable grade 1 retrolisth eses at L1-2, L2-3, and L5-S1. Multilevel severe degenerative disc disease and facet arthropathy.
== END 2021-11-18 10:51 | disposition home or self-care (01) ==
PROVIDERS: PCP Family Medicine; Visit Provider Family Medicine
DX: M47.817 Spondylosis without myelopathy or radiculopathy, lumbosacral region (principal); M41.9 Scoliosis, unspecified
CPT/HCPCS: 72114

== ENCOUNTER 2022-01-04 13:29 | Outpatient (CLI) | payer OTHER, SELFPAY ==
--- NOTE | ~2022-01-04 | MR_ITS ---
EXAMINATION: MR lumbar spine wo con DATE: 01/04/2022 14:36 INDICATION: Chronic low back pain. TECHNIQUE: Magnetic resonance imaging (MRI) of the lumbar spine was performed without intravenous con trast. Sequences included sagittal T2-weighted FSE, sagittal T2-weighted FS FSE, sagittal T1-weighted FSE, and axial T2-weighted FSE. COMPARISON: Lumbar spine radiographs 11/18/2021 FINDINGS: There is 14 degrees dextroscoliosis of thoracolumbar spine. There is 3 mm retrolisthesis of L1 on L2, 3 mm anterolisthesis of L3 on L4, 5 mm anterolisthesis of L4 on L5, and 5 mm retrolisthesi s of L5 on S1. There is mild chronic anterior wedging of T11 and T12 vertebral bodies. There is sever renu decreased disc height from L1-L2 through L5-S1 with endplate remodeling. There is ligamentum flav um hypertrophy at the lumbar disc levels. The distal spinal cord signal intensity is normal. The conu s medullaris is at L2. The following disc levels are specifically discussed: L1-L2: The disc is bulging and has an annular fissure. There is severe bilateral facet joint osteoart hritis. There is mild right and moderate left neural foraminal stenosis. There is mild central canal stenosis. L2-L3: The disc is bulging and has an annular fissure. There is severe bilateral facet joint osteoart hritis. There is mild right and moderate left neural foraminal stenosis. There is mild central canal stenosis. L3-L4: The disc is bulging and has an annular fissure. There is severe bilateral facet joint osteoart hritis. There is moderate right and mild left neural foraminal stenosis. There is moderate central ca nal stenosis. L4-L5: The disc is bulging and has an annular fissure. There is severe bilateral facet joint osteoart hritis. There is moderate bilateral neural foraminal stenosis. There is severe central canal stenosis . L5-S1: The disc is bulging and has an annular fissure. There is moderate bilateral facet joint osteoa rthritis. There is moderate bilateral neural foraminal stenosis. There is mild central canal stenosis . IMPRESSION: 1. Severe lumbar spondylosis. 2. Thoracolumbar dextroscoliosis. Reviewed, dictated and finalized at location A. FORMER
== END 2022-01-04 13:30 | disposition home or self-care (01) ==
PROVIDERS: PCP Family Medicine; Visit Provider Family Medicine
DX: M54.16 Radiculopathy, lumbar region (principal); M54.50 Low back pain, unspecified; M43.06 Spondylolysis, lumbar region; M41.85 Other forms of scoliosis, thoracolumbar region
CPT/HCPCS: 72148

== ENCOUNTER 2022-03-18 15:36 | Outpatient (CLI) | payer OTHER, SELFPAY ==
--- NOTE | ~2022-03-18 | XR_ITS ---
EXAMINATION: XR chest 2V DATE: 03/18/2022 16:13 INDICATION: Wheezing TECHNIQUE: PA and lateral views of the chest were obtained. COMPARISON: Chest radiograph dated 09/30/[address] dated 08/26/2021 FINDINGS: Opacities at the lateral right lower lung zone extending along the anterior sixth rib which correspon ds to a small amount of subpleural fat projecting medially along the major fissure. Additional small amount of subpleural fat at the lateral left lower lung zone. No other airspace opacities, pulmonary edema, pleural effusion or pneumothorax. Large calcified right paratracheal lymph nodes consistent wi th old granulomatous disease. Heart size is normal. Postoperative change of prior right mastectomy an d right axillary lymph node dissection. There are bridging osteophytes at multiple levels in the spin e, consistent with diffuse idiopathic skeletal hyperostosis (DISH). IMPRESSION: 1. No acute cardiopulmonary disease. Reviewed, dictated and finalized at location A. O MANAGER
--- NOTE | ~2022-03-18 | XR_ITS ---
EXAMINATION: XR knee LT 3V DATE: 03/18/2022 16:13 INDICATION: Left knee pain and bruising at the proximal anterior tibia post fall TECHNIQUE: Sitting AP, lateral and sunrise views of the left knee were obtained COMPARISON: None. FINDINGS: Alignment is normal. No fracture. Moderate to severe joint space narrowing at the medial compartment of the left knee. There is chondrocalcinosis and mild joint space narrowing the lateral and patellof emoral compartments. No joint effusion/layering lipohemarthrosis. Moderate-sized enthesophytes along the patella, anterior tibial tuberosity and along the posterolateral proximal tibial diaphysis. Soft tissues are unremarkable. IMPRESSION: 1. No left knee joint effusion or acute osseous abnormality. 2. Moderate to severe medial compartment predominant tricompartmental osteoarthritis. Reviewed, dictated and finalized at location A. ER TENDER IMPRESSION: 1. No left knee joint effusion or acute osseous abnormality. 2. Moderate to severe medial compartment predominant tricompartmental osteoarth ritis.
--- NOTE | ~2022-03-18 | XR_ITS ---
EXAMINATION: XR hand RT 2V DATE: 03/18/2022 16:13 INDICATION: Laceration at the posterior right hand. TECHNIQUE: Posteroanterior and lateral views of the right hand were obtained. COMPARISON: 01/13/2006 FINDINGS: No fracture. Mild palmar subluxation at the first metacarpophalangeal joint. Polyarticular osteoarthr itis, severe at the distal interphalangeal joints with central erosions with gullwing configuration a t the base of the third-fifth distal phalanges consistent with erosive osteoarthritis. Additional sev ere osteoarthritis at the first carpometacarpal, first metacarpophalangeal and fourth proximal interp halangeal joints. Moderate osteoarthritis at the wrist, third metacarpophalangeal and remaining inter phalangeal joints and mild at the distal radioulnar, midcarpal, triscaphe and remaining metacarpophal angeal joints. Soft tissues are unremarkable. No radiopaque foreign bodies. IMPRESSION: 1. No acute osseous abnormality or radiopaque foreign bodies. 2. 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 Reviewed, dictated and finalized at location A. UE PLACER IMPRESSION: 1. No acute osseous abnormality or radiopaque foreign bodies. 2. Severe polyarticular osteoarthritis including erosive osteoarthritis at leeanna ral of the distal interphalangeal joints.
== END 2022-03-18 15:37 | disposition home or self-care (01) ==
PROVIDERS: PCP Family Medicine; Visit Provider Nurse Practitioner Gerontology
DX: R06.2 Wheezing (principal); M79.89 Other specified soft tissue disorders; M25.569 Pain in unspecified knee; M15.9 Polyosteoarthritis, unspecified
CPT/HCPCS: 71046; 73120; 73562

== ENCOUNTER 2022-05-23 16:28 | Observation (INO) | payer OTHER, SELFPAY ==
[2022-05-23] VITALS (13 sets, daily range): BP systolic 142–187; BP diastolic 53–91; PULSE 55–77; RESP 15–21; TEMP 36.3–36.6; O2SAT 94–100; BMI 34.5
--- NOTE | ~2022-05-23 | XR_ITS ---
EXAMINATION: XR knee RT min 4V DATE: 05/23/2022 18:02 INDICATION: Right knee pain TECHNIQUE: Four views of the right knee were obtained. COMPARISON: None. FINDINGS: Alignment is normal. No fracture or osteochondral lesion. There is moderate tricompartmenta l osteoarthritis. A small knee joint effusion is present. Soft tissues are unremarkable. IMPRESSION: 1. No acute osseous abnormality. Reviewed, dictated and finalized at location F.
--- NOTE | ~2022-05-23 | CT_ITS ---
EXAMINATION: CT cervical spine wo con DATE: 05/23/2022 20:07 INDICATION: Neck pain TECHNIQUE: Computed tomography (CT) of the cervical spine was performed without intravenous contrast. The dose-length product (DLP) was 485.11 mGy-cm. Automated exposure control and iterative reconstruc tion technique were employed. COMPARISON: None FINDINGS: There are 2 mm of anterolisthesis of C6 on C7. There is moderate loss of intervertebral dis c space height throughout the cervical spine. There is multilevel severe facet and uncovertebral join t osteoarthritis. There is severe osteoarthritis at the atlantoaxial joint. There is no fracture. IMPRESSION: 1. Moderate to severe cervical spondylosis without acute findings. Reviewed, dictated and finalized at location F.
--- NOTE | ~2022-05-23 | XR_ITS ---
EXAMINATION: XR chest 2V DATE: 05/23/2022 18:02 INDICATION: Weakness, fall TECHNIQUE: AP and lateral views of the chest are obtained. COMPARISON: 03/18/2022 FINDINGS: The lungs are free of acute opacities. No pleural effusion or pneumothorax. The cardiomedia stinal silhouette is normal. There are bridging osteophytes at multiple levels in the spine, consiste nt with diffuse idiopathic skeletal hyperostosis (DISH). Calcified pulmonary nodules and calcified me diastinal lymph nodes are consistent with old granulomatous disease. IMPRESSION: 1. No acute cardiopulmonary abnormality. Reviewed, dictated and finalized at location F.
--- NOTE | ~2022-05-23 | CT_ITS ---
EXAMINATION: CT brain wo con INDICATION: Headache COMPARISON: 10/14/2017 TECHNIQUE: Standard unenhanced head CT. The dose-length product (DLP) was 681.00 mGy-cm. The mA was a djusted according to patient size. Iterative reconstruction technique was employed. FINDINGS: There is no acute intraparenchymal hemorrhage. No evidence of mass lesion. No evidence of a cute infarction. There is moderate periventricular and subcortical hypodensity probably related to sm all vessel ischemic disease. There is moderate prominence of the sulci and ventricles related to cere bral atrophy. Intracranial calcified cerebral atherosclerosis is noted. There are no extra-axial darci ections. There is no mass effect or midline shift. Changes in the globes are likely from ocular lens surgery. There is mild mucosal thickening of the solitary sphenoid sinus. IMPRESSION: 1. No acute intracranial abnormality. 2. Age related findings. Reviewed, dictated and finalized at location F.
--- NOTE | ~2022-05-23 | XR_ITS ---
EXAMINATION: XR ankle RT min 3V DATE: 05/24/2022 15:42 INDICATION: Right ankle trauma post fall TECHNIQUE: Anteroposterior, oblique, mortise, and lateral views of the right ankle were obtained. COMPARISON: Right foot radiographs dated 09/06/2016 FINDINGS: Diffuse osteopenia which decreases sensitivity and specificity for nondisplaced fracture. Subtle obli que linear lucency at the distal metadiaphyseal region of the right fibula suspicious for nondisplace d fracture. There also appears to be a cortical discontinuity at the posterior malleolus also suspici ous for nondisplaced fracture. Chronic nondisplaced, peripherally corticated nonunited fracture fragm ent of the tip of the medial malleolus. Mild polyarticular osteoarthritis at the right ankle and mult iple joints in the visualized mid and hindfoot. Large Achilles and plantar calcaneal spurs. Additiona l enthesophytes at the dorsal aspect of the distal tarsal row. Diffuse of tissue swelling about the r ight ankle, hindfoot and distal lower leg. IMPRESSION: 1. Nondisplaced fractures of the distal fibula and posterior malleolus with nondisplaced chronic nonu nited fracture at the tip the medial malleolus. Recommend orthopedic consultation. Reviewed, dictated and finalized at location A. IMPRESSION: 1. Nondisplaced fractures of the distal fibula and posterior malleolus with non displaced chronic nonunited fracture at the tip the medial malleolus. Recommend orthopedic consultation.
--- NOTE | ~2022-05-23 | XR_ITS ---
EXAMINATION: XR hip RT 2V w AP pelvis DATE: 05/24/2022 15:43 INDICATION: Right hip and pelvic pain post fall TECHNIQUE: Anteroposterior view of the pelvis and anteroposterior and frog-leg lateral views of the r ight hip were obtained. COMPARISON: CT abdomen and pelvis dated 08/26/2021 FINDINGS: Alignment is normal. No fracture. Severe lumbar spondylosis. Mild bilateral hip osteoarthritis. Enthe sophytes along the bilateral greater trochanters. Additional small amount of enthesopathic ossificati on along side the right ischial tuberosity. Sigmoid colon anastomotic suture line in the central pelv is. IMPRESSION: 1. No acute osseous abnormality. 2. Degenerative skeletal changes as detailed above most notable for severe lumbar spondylosis. Reviewed, dictated and finalized at location A. IMPRESSION: 1. No acute osseous abnormality. 2. Degenerative skeletal changes as detailed above most notable for severe lumb ar spondylosis.
--- NOTE | ~2022-05-23 | CT_ITS ---
EXAMINATION: CT thoracic lumbar wo con DATE: 05/23/2022 20:07 INDICATION: Thoracic and lumbar back pain TECHNIQUE: Computed tomography (CT) of the thoracic and lumbar spine was performed without intravenou s contrast. The dose-length product (DLP) was 1748.32 mGy-cm. Iterative reconstruction was used. COMPARISON: None FINDINGS: Thoracic spine: There are bridging osteophytes at multiple levels in the spine, consistent with diffu se idiopathic skeletal hyperostosis (DISH). The vertebral body heights and alignment are maintained. There is no fracture. There are airspace opacities posteriorly in the right upper lobe and posterior medially in the left lower lobe. There are small pleural effusions, left greater than right. Calcifie d mediastinal lymph nodes are consistent with old granulomatous disease. Lumbar spine: There are 3 mm of anterolisthesis of L4 on L5 and 3 mm of retrolisthesis of L5 on S1. T here is severe loss of intervertebral disc space height throughout the lumbar spine. The lumbar verte bral body heights are maintained. There is no fracture. There is multilevel severe facet joint osteoa rthritis. A suture line is noted in the rectosigmoid colon. There is a small volume of upper abdomina l ascites. IMPRESSION: 1. Airspace opacities of the right upper lobe and left lower lobe, consistent with multifocal pneumon ia. 2. Diffuse idiopathic skeletal hyperostosis of the thoracic spine without acute findings. 3. Severe lumbar spondylosis without acute findings. Reviewed, dictated and finalized at location F. IMPRESSION: 1. Airspace opacities of the right upper lobe and left lower lobe, consistent w ith multifocal pneumonia. 2. Diffuse idiopathic skeletal hyperostosis of the thoracic spine without acute findings. 3. Severe lumbar spondylosis without acute findings.
--- NOTE | ~2022-05-23 | XR_ITS ---
EXAMINATION: XR chest 1V portable INDICATION: Shortness of breath TECHNIQUE: Portable AP chest at 0557 hours COMPARISON: 05/23/2022 FINDINGS: There is a stable nodular airspace opacity of the right upper lobe. Also seen are airspace opacities of the left lower lobe. Small pleural effusions are present. There is no pneumothorax. Calc ified mediastinal lymph nodes are consistent with old granulomatous disease. The cardiomediastinal si lhouette is stable. IMPRESSION: 1. Stable airspace opacities in the right upper lobe and left lower lobe, consistent with multifocal pneumonia. Reviewed, dictated and finalized at location A. IMPRESSION: 1. Stable airspace opacities in the right upper lobe and left lower lobe, consi stent with multifocal pneumonia.
--- NOTE | 2022-05-23 17:10 | ECG_ITS ---
Measurements Intervals [place] Rate: 58 P: 47 OR: 195 QRS: -17 QRSD: 168 T: 137 QT: 463 QTc: 458 Interpretive Statements SINUS BRADYCARDIA LEFT BUNDLE BRANCH BLOCK [120+ ms QRS DURATION, 80+ ms Q/S IN V1/V2, 85+ ms R IN I/aVL/V5/V6] COMPARED TO ECG 09/30/2021 09:14:19 SINUS BRADYCARDIA NOW PRESENT Electronically Signed On 05-24-2022 22:11:21 CDT by Shantell Heredia M.D.
[2022-05-23 17:32] LABS: Basophils Percent Auto 0.6 % (0.2-1.2); Eosinophils Percent Auto 0.5 % (0-4.4); Hematocrit 39.6 % (37.0-47.0); Hemoglobin 12.4 g/dL (12.0-15.0); Immature Granulocyte Absolute 0.02 K/mm3 (0.00-0.031); Immature Granulocyte Percent A 0.3 % (0-0.5); Lymphocytes Absolute Auto 0.59 K/mm3 (0.9-3.2); Lymphocytes Percent Auto 9.2 % (18.3-44.2); Mean Corpuscular HGB Conc 31.3 g/dl (32-36); Mean Corpuscular Hemoglobin 27.4 pg (26-34); Mean Corpuscular Volume 87.6 fl (80-100); Mean Platelet Volume 10.7 fl (7.4-10.4); Monocytes Absolute Auto 0.5 K/mm3 (0.1-0.6); Monocytes Percent Auto 7.8 % (2.6-8.5); Neutrophils Absolute Auto 5.2 K/mm3 (1.3-6.7); Neutrophils Percent Auto 81.6 % (45.5-73.1); Platelet Count Result 111 k/mm3 (150-375); Red Blood Count 4.52 M/mm3 (4.2-5.4); Red Cell Distribution Width 16.8 % (11.5-14.5); White Blood Count 6.4 K/mm3 (4.5-10.0)
[2022-05-23 17:42] LABS: Alanine Aminotransferase 39 U/L (6-35); Albumin Level 2.9 g/dL (3.5-5.1); Alkaline Phosphatase 157 U/L (38-126); Anion Gap 6 mmol/L (8-16); Aspartate Amino Transferase 60 U/L (14-36); Bilirubin,Total 1.2 mg/dL (0.2-1.3); Blood Urea Nitrogen 15 mg/dL (7-17); Calcium 8.1 mg/dL (8.4-10.2); Carbon Dioxide 28 mmol/L (22-30); Chloride 109 mmol/L (98-107); Estimated CRCL calculation 53 ml/min; Estimated Glomerular Filt Rate > 60; Glucose 93 mg/dL (65-110); Potassium 3.5 mmol/L (3.4-5.0); Sodium 143 mmol/L (137-145)
[2022-05-23 18:52] LABS: Appearance Urine Clear (Clear); Bacteria Urine None Seen /hpf; Bilirubin Urine Negative (Negative); Blood Urine Negative (Negative); Color Urine Yellow (Yellow); Glucose Urine UA Negative (Negative); Ketones Urine Negative (Negative); Leukocyte Esterase Ur Negative LEU/UL (Negative); Nitrate Urine Negative (Negative); Non Pathogenic Casts 0-2; Protein Urine 1+ mg/dL (Negative); RBC Urine 0-2 /hpf (0-2); Specific Grav Ur 1.015 (1.001-1.035); Squamous Epithelial Cell Urine None seen /hpf (Few); WBC Urine 0-5 /hpf; pH Urine 5.5 (5.0-9.0)
[2022-05-23 18:57] LABS: Add Urine Microscopic? YES
--- NOTE | 2022-05-23 20:15 | ED.WEAKNESS ---
HPI - Weakness General Chief complaint: Weakness Stated complaint: GENERALIZED WEAK, FALLS Time Seen by Provider: 05/23/22 18:38 History of Present Illness HPI Narrative: Patient is an 82-year-old female with a history of hypertension, hyperlipidemia, CHF, diabetes, dementia presenting after multiple falls. Patient's son is at bedside and provides the majority of the history. States that he is her primary caregiver. States that he is concerned that she has had multiple falls in the last week. She states that her knees have just been giving out. Patient's son is concerned that her legs are more swollen than normal. States that her PCP recently increased her Lasix but this has not helped. Patient thinks that she has just lost her balance which has caused these falls. She does not know if she has struck her head. She denies chest pain or new shortness of breath. She denies new numbness or weakness. No abdominal pain, nausea or vomiting, diarrhea, dysuria. Related Data Home Medications Medication Instructions Recorded Confirmed [id number]-[id number] ac 400 1 tablet PO DAILY 12/16/18 05/23/22 mcg-calcium carb 500 mg-vit K1 20 mcg tablet (Women's 50 Plus Daily Formula) furosemide 20 mg tablet 40 mg PO DAILY 05/23/22 05/23/22 hydralazine 25 mg tablet 25 mg PO BID 05/23/22 05/23/22 insulin glargine 100 unit/mL (3 60 unit subcut DAILY 05/23/22 05/23/22 mL) subcutaneous pen (Lantus Solostar U-100 Insulin) docusate sodium 100 mg capsule 100 mg PO DAILY 05/24/22 05/24/22 (Dulcolax Stool Softener (docusate)) Allergies Allergy/AdvReac Type Severity Reaction Status Date / Time No Known Allergies Allergy Unknown Verified 05/23/22 18:21 Review of Systems Review of Systems: All systems reviewed & are unremarkable except as noted in HPI and below PMFSH Past Medical History Medical History Abscess of abdominal wall Acute bacterial bronchitis Acute maxillary sinusitis Anemia, unspecified Angiodysplasia of colon without hemorrhage (07/07/14) Ankylosing hyperostosis Arthritis of knee Atherosclerosis of aorta Atherosclerosis of aorta 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 Bradycardia Chronic diastolic (congestive) heart failure Chronic pain disorder Chronic pancreatitis Chronic right hip pain 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) Cognitive deficit S/P CVA (cerebrovascular accident) Cognitive impairment Complicated grieving Constipation Constipation by delayed colonic transit CVA, old, cognitive deficits of Diabetic nephropathy Diabetic neuropathy Dietary counseling and surveillance (03/30/18) Difficulty with CPAP use DM renal manif type II, uncontrolled EIC (epidermal inclusion cyst) Essential (primary) hypertension Gastroparesis due to DM Granulomatous lung disease Hematuria, unspecified History of right breast cancer HTN (hypertension) Hx of malignant neoplasm of breast HX: breast cancer Hypersomnia Hypertensive heart disease without heart failure (09/25/09) Inguinal hernia, right Iron deficiency anemia secondary to blood loss (chronic) LBBB (left bundle branch block) Liver, cirrhosis, portal Liver, cirrhosis, portal Living will, counseling/discussion Long-term insulin use Lumbar spondylosis MDD (major depressive disorder), recurrent episode, severe Mild cognitive impairment with memory loss Nephropathy associated with another disease Non-compliance Non-rheumatic mitral regurgitation Obesity (07/07/14) Occlusion and stenosis of bilateral carotid arteries BRO (obstructive sleep apnea) BRO (obstructive sleep apnea) Portal hypertension (07/07/14) Primary generalized (osteo)arthritis PVD (peripheral vascular disease) Renovascular hypertension Right groin pain Secondary esophageal varices without bleeding Splenomegaly (07/07/14) TIA (transient ischemi
[2022-05-23 20:27] LABS: NT Pro B Type Natriuretic Pept 1610 pg/mL (19.9-100); Troponin I 0.012 ng/mL (0.000-0.034)
[2022-05-23 21:19] LABS: INR 1.3; Prothrombin Time 15.4 Seconds (11.1-14.7)
[2022-05-23 21:20] LABS: Partial Thromboplastin Time 32.7 SECONDS (22.3-36.8)
[2022-05-23 21:26] LABS: Troponin I 0.015 ng/mL (0.000-0.034)
--- NOTE | 2022-05-23 22:19 | PM.IMHP ---
H&P: HPI History of Present Illness Date/Time: 05/23/22 22:19 Chief Complaint: Multiple falls Increase swelling legs Narrative: Patient is an 82-year-old female with a history of hypertension, hyperlipidemia, CHF, diabetes, dementia presenting after multiple falls.? Patient's son is at bedside and provides the majority of the history.? States that he is her primary caregiver.? States that he is concerned that she has had multiple falls in the last week.? She states that her knees have just been giving out.? Patient's son is concerned that her legs are more swollen than normal.? States that her PCP recently increased her Lasix but this has not helped.? Patient thinks that she has just lost her balance which has caused these falls.? She does not know if she has struck her head.? She denies chest pain or new shortness of breath.? She denies new numbness or weakness.? No abdominal pain, nausea or vomiting, diarrhea. Patient workup was started the emergency room. Patient was found to have edema of extremity. On CT scan patient also found mild pneumonia. Patient was admitted to floor for further evaluation treatment. 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 Bradycardia Chronic diastolic (congestive) heart failure Chronic pain disorder Chronic pancreatitis Chronic right hip pain 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) Cognitive deficit S/P CVA (cerebrovascular accident) Cognitive impairment Complicated grieving Constipation Constipation by delayed colonic transit CVA, old, cognitive deficits of Diabetic nephropathy Diabetic neuropathy Dietary counseling and surveillance (03/30/18) Difficulty with CPAP use DM renal manif type II, uncontrolled EIC (epidermal inclusion cyst) Essential (primary) hypertension Gastroparesis due to DM Granulomatous lung disease Hematuria, unspecified History of right breast cancer HTN (hypertension) Hx of malignant neoplasm of breast HX: breast cancer Hypersomnia Hypertensive heart disease without heart failure (09/25/09) Inguinal hernia, right Iron deficiency anemia secondary to blood loss (chronic) LBBB (left bundle branch block) Liver, cirrhosis, portal Liver, cirrhosis, portal Living will, counseling/discussion Long-term insulin use Lumbar spondylosis MDD (major depressive disorder), recurrent episode, severe Mild cognitive impairment with memory loss Nephropathy associated with another disease Non-compliance Non-rheumatic mitral regurgitation Obesity (07/07/14) Occlusion and stenosis of bilateral carotid arteries BRO (obstructive sleep apnea) BRO (obstructive sleep apnea) Portal hypertension (07/07/14) Primary generalized (osteo)arthritis PVD (peripheral vascular disease) Renovascular hypertension Right groin pain Secondary esophageal varices without bleeding Splenomegaly (07/07/14) TIA (transient ischemic attack) Trochanteric bursitis of right hip 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
[2022-05-23 22:51] LABS: Glucose Point of Care 94 mg/dl (65-105)
--- NOTE | 2022-05-24 | ECHO_ITS ---
Patient Info Name: Marilyn Baker Age: 82 years : 1940 Gender: Female Ht: 64 in Wt: 201 lbs BSA: 2.07 m2 HR: 61 bpm BP: 172 / 58 mmHg Technical Quality: Fair Exam Date: 05/24/2022 7:02 AM Exam Location: [facility] Patient Status: Inpatient Admit Date: 05/23/2022 Staff Ordering Physician: Yvan Mancini MD [employer] Floorperson: Antonietta Sanabria RDCS Attending Provider: Yvan Mancini MD Referring Physician: Addis STEWART; Exam Type: CA echo dop color flow w con Study Info Indications I50.20 - Unspecified systolic (congestive) heart failure Complete two-dimensional, color flow and Doppler transthoracic echocardiogram is performed with contrast to opacify the left ventricle and to improve the deliniation of the left ventricle endocardial borders. Contrast/Agitated Saline Contrast/Ag. Saline: Definity Amount: 4.00 ml Administered By: Antonietta Sanabria [facility] Summary 1. Left ventricular chamber dimension is moderately enlarged. 2. Definity contrast administered improved wall motion interpretation. 3. Left ventricular systolic function is preserved, estimated at 50-55%. 4. There is mild concentric increased left ventricular wall thickness. 5. Left ventricular septal wall motion is abnormal with septal motion related to bundle branch block. 6. E/e' 38 is significantly elevated. 7. Left atrial chamber dimension is moderately enlarged. 8. The mitral valve has moderately calcified leaflets. 9. There is mild mitral valve regurgitation. 10. There is trace tricuspid valve regurgitation. 11. No pulmonary hypertension, estimated pulmonary arterial systolic pressure is 29 mmHg. 12. There is trace pulmonic regurgitation. Left Ventricle E/e' 38 is significantly elevated. Definity contrast administered improved wall motion interpretation. Left ventricular systolic function is preserved, estimated at 50-55%. Left ventricular chamber dimension is moderately enlarged. There is mild concentric increased left ventricular wall thickness. Left ventricular septal wall motion is abnormal with septal motion related to bundle branch block. The left ventricular diastolic function is grade II diastolic dysfunction. Right Ventricle Right ventricular chamber dimension is normal. Right ventricular systolic function is normal. Left Atria Left atrial chamber dimension is moderately enlarged. Right Atria Right atrial chamber dimension is normal. Aortic Valve The aortic valve is not well visualized. Cannot determine number of aortic valve leaflets. There is no aortic valve stenosis. There is no aortic valve regurgitation. Pulmonic Valve There is trace pulmonic regurgitation. Mitral Valve The mitral valve has moderately calcified leaflets. There is no mitral valve stenosis. There is mild mitral valve regurgitation. Tricuspid Valve There is trace tricuspid valve regurgitation. No pulmonary hypertension, estimated pulmonary arterial systolic pressure is 29 mmHg. Pericardium/Pleural There is no pericardial effusion. Inferior Vena Cava Normal inferior vena cava with >50% collapse upon inspiration consistent with normal right atrial pressure, 5 mmHg. Aorta The aortic root size at the sinus of Valsalva is normal. Left Ventricular Outflow Tract Name Value Normal
[2022-05-24 00:24] LABS: Troponin I 0.017 ng/mL (0.000-0.034)
[2022-05-24 05:55] VITALS: BP 172/58; PULSE 64; RESP 20; TEMP 36.4; O2SAT 96
[2022-05-24 06:55] LABS: Basophils Percent Auto 0.4 % (0.2-1.2); Eosinophils Percent Auto 0.4 % (0-4.4); Hematocrit 37.9 % (37.0-47.0); Hemoglobin 11.7 g/dL (12.0-15.0); Immature Granulocyte Absolute 0.02 K/mm3 (0.00-0.031); Immature Granulocyte Percent A 0.3 % (0-0.5); Lymphocytes Absolute Auto 0.94 K/mm3 (0.9-3.2); Mean Corpuscular HGB Conc 30.9 g/dl (32-36); Mean Corpuscular Hemoglobin 26.5 pg (26-34); Mean Corpuscular Volume 85.9 fl (80-100); Mean Platelet Volume 10.4 fl (7.4-10.4); Monocytes Absolute Auto 0.8 K/mm3 (0.1-0.6); Monocytes Percent Auto 11.6 % (2.6-8.5); Neutrophils Absolute Auto 5.4 K/mm3 (1.3-6.7); Neutrophils Percent Auto 74.3 % (45.5-73.1); Platelet Count Result 97 k/mm3 (150-375); Red Blood Count 4.41 M/mm3 (4.2-5.4); Red Cell Distribution Width 16.6 % (11.5-14.5); White Blood Count 7.2 K/mm3 (4.5-10.0)
[2022-05-24 07:24] LABS: Alanine Aminotransferase 36 U/L (6-35); Albumin Level 2.8 g/dL (3.5-5.1); Alkaline Phosphatase 155 U/L (38-126); Aspartate Amino Transferase 57 U/L (14-36); Blood Urea Nitrogen 14 mg/dL (7-17); Calcium 8.1 mg/dL (8.4-10.2); Carbon Dioxide 28 mmol/L (22-30); Chloride 108 mmol/L (98-107); Estimated CRCL calculation 66 ml/min; Estimated Glomerular Filt Rate > 60; Glucose 207 mg/dL (65-110); Potassium 3.6 mmol/L (3.4-5.0)
[2022-05-24 07:30] LABS: Glucose Point of Care 185 mg/dl (65-105)
[2022-05-24] MEDS: PERFLUTREN LIPID MICROSPHERES 1.5 ML VIAL DILUTED TO 10 ML TOTAL VOLUME IV PUSH (07:30)
[2022-05-24 08:16] LABS: Anion Gap 4 mmol/L (8-16); Sodium 140 mmol/L (137-145)
[2022-05-24 08:56] VITALS: PULSE 88
[2022-05-24] MEDS: OLMESARTAN MEDOXOMIL 20 MG TABLET 40 MG PO (08:56)
[2022-05-24] MEDS: hydrALAZINE HCL 25 MG TABLET PO ×2 (08:56→17:21)
[2022-05-24] MEDS: THERAPEUTIC MULTIVITAMINS/MINERALS TAB (*BKC) 1 TABLET PO (08:56)
[2022-05-24] MEDS: amLODIPine BESYLATE 5 MG TABLET 10 MG PO (08:56)
[2022-05-24] MEDS: FERROUS SULFATE 324 MG TABLET PO (08:56)
[2022-05-24] MEDS: NEBIVOLOL HCL 5 MG TABLET PO (08:56)
[2022-05-24] MEDS: MEMANTINE 10 MG TABLET PO ×2 (08:56→17:52)
[2022-05-24] MEDS: ATORVASTATIN 20 MG TABLET PO (08:56)
[2022-05-24] MEDS: PARoxetine 20 MG TABLET PO (08:56)
[2022-05-24] MEDS: ENOXAPARIN 40 MG/0.4 ML SYRINGE SUB-Q (08:57)
[2022-05-24] MEDS: POLYSACCHARIDE IRON COMPLEX 150 MG CAPSULE PO (08:57)
[2022-05-24] MEDS: FUROSEMIDE INJ 40 MG/4 ML VIAL IV PUSH (08:57)
[2022-05-24] MEDS: INSULIN GLARGINE (*BKC) 100 UNITS/ML 60 UNITS SUB-Q (09:00)
[2022-05-24] MEDS: DOXYCYCLINE HYCLATE 100 MG TABLET PO ×2 (09:02→22:01)
[2022-05-24 11:28] LABS: Glucose Point of Care 312 mg/dl (65-105)
[2022-05-24 14:00] VITALS: BP 123/49; PULSE 63; RESP 20; TEMP 36; O2SAT 95
--- NOTE | 2022-05-24 14:25 | PM.IMPN ---
Progress Note: A&P Assessment and Plan (1) Multifocal pneumonia: Code(s): J18.9 - Pneumonia, unspecified organism Status: Acute Assessment and Plan: No cough. Normal WBC and no fevers. CXR showing no acute process. Spine CT showing RUL and LLL airspace disease. Consider PNA with pulmonary edema. She was started on Rocephin and Doxycycline. No BCx collected. Will continue antibiotics and monitor closely for now. (2) Acute on chronic systolic (congestive) heart failure: Code(s): I50.23 - Acute on chronic systolic (congestive) heart failure Status: Acute Assessment and Plan: Echo last year showing EF 60-65% with Grade II diastolic dysfunction. BNP [address] scan as mentioned above. She was started on IV Lasix. Repeat echo pending. Continue diuresis with Lasix. Check CXR in the morning (3) Fall: Code(s): W19.XXXA - Unspecified fall, initial encounter Status: Acute Assessment and Plan: Patient having falls. CXR clear. Right knee xray showing no acute findings. HCT showing no acute intracranial abnormalities. Cervical CT showing moderate to severe cervical spondylosis, T/L CT showing severe lumbar spondylosis with acute findings. Monitor closely. Start PT/OT. Check right ankle and hip xray. (4) History of diabetes mellitus: Code(s): Z86.39 - Personal history of other endocrine, nutritional and metabolic disease Status: Acute Assessment and Plan: A1c 7.3. The patient's blood glucose was reviewed on 05/24 Glucose poorly controlled. Continue AccuCheks covering with sliding scale. Hypoglycemia protocol available as needed. Continue lantus. Add meal time insulin. (5) History of hypertension: Code(s): Z86.79 - Personal history of other diseases of the circulatory system Status: Acute Assessment and Plan: Patient's blood pressure was reviewed on 05/24 Blood pressure was poorly controlled but better now. Will continue current medications. (6) Elevated LFTs: Code(s): R79.89 - Other specified abnormal findings of blood chemistry Status: Acute Assessment and Plan: AST/ALT have been mildly elevated chronically. levels are at her baseline. CT Abdomen in 2021 showing cirrhosis. Check hepatitis panel. Check ammonia Plan Patient is Full Code Lovenox for DVT Prophylaxis. Subjective Date/time seen: 05/24/22 14:25 Interval history: 82yo female HTN, HLD, CHF, DM and dementia presenting after multiple falls.?? She has chronic back pain without change. No cough. No CP. No fever or chills. She states her right knee gave out causing her to fall which has happened in the past. No increase in weight. No orthopnea. Exam Narrative: AF 96.8 123/49 63 20 95% ra Gen - NARD lying semi-recumbent in bed Chest - inspiratory crackles bibasilar. nml RR. no conversational dyspnea. CV - RRR S1/S2 with 2/6 systolic murmur RUSB. Abd - Soft, NT/ND, Positive BS Ext - mild rt LE pedal edema with bruising noted around right ankle. Tender right ankle ROM. Right knee ROM normal but rt hip external rotation Psych - Nml mood and affect Skin - Warm and dry. bruising noted right upper back but no pain to the shoulder or back area Objective Data Vital Signs Vital Signs: Vital Signs - 24 hr 05/23/22 16:58 05/23/22 18:23 05/23/22 18:23 Temperature 97.9 F Pulse Rate 64 60 66 Respiratory Rate 16 21 H Blood Pressure 142/76 H Pulse Oximetry 98 99 Oxygen Delivery Room Air 05/23/22 18:30 05/23/22 18:55 05/23/22 19:01 Temperature Pulse Rate 58 L 59 L 55 L Respiratory Rate 19 16 17 Blood Pressure Pulse Oximetry 97 99 100 Oxygen Delivery 05/23/22 20:30 05/23/22 21:17 05/23/22 21:32 Temperature Pulse Rate 60 64 70 Respiratory Rate 20 20 15 Blood Pressure 149/77 H 156/54 H Pulse Oximetry 100 99 97 Oxygen Delivery 05/23/22 21:47 05/23/22 22:02 05/23/22 22:17 [place]
[2022-05-24 16:43] LABS: Glucose Point of Care 185 mg/dl (65-105)
[2022-05-24] MEDS: INSULIN ASPART (*BKC) 100 UNITS/ML SUB-Q (17:23)
[2022-05-24] MEDS: ACETAMINOPHEN 325 MG TABLET 650 MG PO (17:51)
[2022-05-24 20:00] VITALS: PULSE 60; RESP 16; O2SAT 96
[2022-05-24 21:35] VITALS: BP 148/61; PULSE 60; RESP 16; TEMP 36.3; O2SAT 96
[2022-05-25 04:39] LABS: Glucose Point of Care 139 mg/dl (65-105)
[2022-05-25 05:16] VITALS: BP 147/52; PULSE 52; RESP 18; TEMP 36.3; O2SAT 97
[2022-05-25 06:36] LABS: Basophils Percent Auto 0.7 % (0.2-1.2); Eosinophils Absolute Auto 0.1 K/mm3 (0-0.3); Eosinophils Percent Auto 1.4 % (0-4.4); Hematocrit 38.9 % (37.0-47.0); Immature Granulocyte Absolute 0.01 K/mm3 (0.00-0.031); Immature Granulocyte Percent A 0.2 % (0-0.5); Immature Platelet Fraction Pct 4.5 % (0.9-11.2); Lymphocytes Absolute Auto 0.97 K/mm3 (0.9-3.2); Lymphocytes Percent Auto 16.8 % (18.3-44.2); Mean Corpuscular HGB Conc 30.8 g/dl (32-36); Mean Corpuscular Hemoglobin 27.3 pg (26-34); Mean Corpuscular Volume 88.4 fl (80-100); Mean Platelet Volume 10.3 fl (7.4-10.4); Monocytes Absolute Auto 0.7 K/mm3 (0.1-0.6); Monocytes Percent Auto 12.5 % (2.6-8.5); Neutrophils Absolute Auto 3.9 K/mm3 (1.3-6.7); Neutrophils Percent Auto 68.4 % (45.5-73.1); Platelet Count Result 113 k/mm3 (150-375); Red Cell Distribution Width 16.3 % (11.5-14.5); White Blood Count 5.8 K/mm3 (4.5-10.0)
[2022-05-25 06:48] LABS: Ammonia 15 umol/L (9-30)
[2022-05-25 07:30] LABS: Glucose Point of Care 68 mg/dl (65-105)
[2022-05-25 07:52] LABS: Thyroid Stimulating Hormone Reflex 0.766 uIU/mL (0.465-4.68)
[2022-05-25 08:00] VITALS: PULSE 78; RESP 18; O2SAT 97
[2022-05-25 08:24] LABS: Hepatitis B Surface Antigen Negative (Negative)
[2022-05-25 08:30] LABS: HAV RESULT Negative (Negative); Hepatitis B Core IgM Result Negative (Negative)
[2022-05-25 08:41] LABS: Hepatitis C Virus Antibody Negative (Negative)
[2022-05-25] MEDS: FUROSEMIDE INJ 40 MG/4 ML VIAL IV PUSH (08:48)
[2022-05-25] MEDS: ENOXAPARIN 40 MG/0.4 ML SYRINGE SUB-Q (08:48)
[2022-05-25] MEDS: FERROUS SULFATE 324 MG TABLET PO (08:48)
[2022-05-25] MEDS: THERAPEUTIC MULTIVITAMINS/MINERALS TAB (*BKC) 1 TABLET PO (08:49)
[2022-05-25] MEDS: amLODIPine BESYLATE 5 MG TABLET 10 MG PO (08:49)
[2022-05-25] MEDS: DOCUSATE SODIUM 100 MG CAPSULE PO (08:49)
[2022-05-25] MEDS: OLMESARTAN MEDOXOMIL 20 MG TABLET 40 MG PO (08:49)
[2022-05-25] MEDS: ATORVASTATIN 20 MG TABLET PO (08:49)
[2022-05-25 08:50] VITALS: PULSE 78
[2022-05-25] MEDS: NEBIVOLOL HCL 5 MG TABLET PO (08:50)
[2022-05-25] MEDS: DOXYCYCLINE HYCLATE 100 MG TABLET PO ×2 (08:50→21:40)
[2022-05-25] MEDS: hydrALAZINE HCL 25 MG TABLET PO ×2 (08:50→17:28)
[2022-05-25] MEDS: PARoxetine 20 MG TABLET PO (08:50)
[2022-05-25 08:53] LABS: Alanine Aminotransferase 37 U/L (6-35); Albumin Level 2.9 g/dL (3.5-5.1); Alkaline Phosphatase 141 U/L (38-126); Anion Gap 5 mmol/L (8-16); Aspartate Amino Transferase 48 U/L (14-36); Blood Urea Nitrogen 18 mg/dL (7-17); Carbon Dioxide 28 mmol/L (22-30); Chloride 107 mmol/L (98-107); Estimated CRCL calculation 66 ml/min; Estimated Glomerular Filt Rate > 60; Glucose 74 mg/dL (65-110); Potassium 3.6 mmol/L (3.4-5.0); Sodium 140 mmol/L (137-145)
[2022-05-25] MEDS: MEMANTINE 10 MG TABLET PO ×2 (09:04→17:28)
[2022-05-25 09:18] LABS: Glucose Point of Care 142 mg/dl (65-105)
[2022-05-25 10:14] LABS: Folic Acid 9.6 ng/mL (2.76->20)
[2022-05-25 11:26] LABS: Glucose Point of Care 187 mg/dl (65-105)
--- NOTE | 2022-05-25 12:18 | PM.IMPN ---
Progress Note: A&P Assessment and Plan (1) Multifocal pneumonia: Code(s): J18.9 - Pneumonia, unspecified organism Status: Acute Assessment and Plan: No cough. Normal WBC and no fevers. CXR showing no acute process. Spine CT showing RUL and LLL airspace disease. Consider PNA. She was started on Rocephin and Doxycycline. No BCx collected. Continue antibiotics. Continue to monitor. (2) Ankle fracture: Code(s): S82.899A - Other fracture of unspecified lower leg, initial encounter for closed fracture Status: Acute Assessment and Plan: Patient had a fall prompting this admission. Additional imaging since admission with right hip and pelvis showing no acute osseous process. Right ankle xray did show: Nondisplaced fractures of the distal fibula and posterior malleolus with nondisplaced chronic nonunited fracture at the tip the medial malleolus. Ortho consult ordered. Bedrest. (3) Acute on chronic systolic (congestive) heart failure: Code(s): I50.23 - Acute on chronic systolic (congestive) heart failure Status: Acute Assessment and Plan: Echo last year showing EF 60-65% with Grade II diastolic dysfunction. BNP [address] scan as mentioned above. She was started on IV Lasix. Repeat echo pending. CXR today reviewed personally and more consistent with PNA. Change to oral Lasix. Follow. Follow up on Echo results. (4) Fall: Code(s): W19.XXXA - Unspecified fall, initial encounter Status: Acute Assessment and Plan: Patient having falls. CXR clear. Right knee xray showing no acute findings. HCT showing no acute intracranial abnormalities. Cervical CT showing moderate to severe cervical spondylosis, T/L CT showing severe lumbar spondylosis with acute findings. Right ankle fracture noted and ortho consulted. Monitor closely. Hold PT/OT. (5) History of diabetes mellitus: Code(s): Z86.39 - Personal history of other endocrine, nutritional and metabolic disease Status: Acute Assessment and Plan: A1c 7.3. The patient's blood glucose was reviewed on 05/25. Glucose better controlled. Continue AccuCheks covering with sliding scale. Hypoglycemia protocol available as needed. Continue lantus but decrease dose. Stop meal time insulin. (6) History of hypertension: Code(s): Z86.79 - Personal history of other diseases of the circulatory system Status: Acute Assessment and Plan: Patient's blood pressure was reviewed on 05/25 Blood pressure better controlled Will continue current medications. (7) Elevated LFTs: Code(s): R79.89 - Other specified abnormal findings of blood chemistry Status: Acute Assessment and Plan: AST/ALT have been mildly elevated chronically. levels are at her baseline. CT Abdomen in 2021 showing cirrhosis. Hepatitis panel negative. Ammonia level 15. Cirrhosis probably explains the mild thrombocytopenia. Defer to PCP for further management. Plan Patient is Full Code Lovenox for DVT Prophylaxis. Subjective Date/time seen: 05/25/22 12:18 Interval history: 82yo female HTN, HLD, CHF, DM and dementia presenting after multiple falls.?? Patient feels better today. No nausea or vomiting. No chest pain. No shortness of breath. No cough. Ankle pain is about the same. Exam Narrative: AF 97.3 147/52 78 18 97% ra Gen - NARD lying semi-recumbent in bed Chest - Lungs are clear to auscultation bilaterally. CV - RRR S1/S2 Abd - Soft, NT/ND, Positive BS Ext - Mild bruising around the right ankle. Trace pedal edema. Psych - Nml mood and affect Skin - Warm and dry. Objective Data Vital Signs Vital Signs: Vital Signs - 24 hr 05/24/22 12:51 05/24/22 14:00 05/24/22 21:35 Temperature 96.8 F L 97.3 F L Pulse Rate 63 60 Respiratory Rate 20 16 Blood Pressure 123/49 L 148/61 H Pulse Oximetry 95 96 Oxygen Delivery Room Air 05/24/22 20:00
[2022-05-25] MEDS: INSULIN GLARGINE (*BKC) 100 UNITS/ML 45 UNITS SUB-Q (12:26)
[2022-05-25 13:54] VITALS: BP 134/44; PULSE 54; RESP 18; TEMP 36.1; O2SAT 97
[2022-05-25 16:23] LABS: Glucose Point of Care 281 mg/dl (65-105)
[2022-05-25] MEDS: INSULIN ASPART (*BKC) 100 UNITS/ML SUB-Q (16:41)
[2022-05-25 21:57] LABS: Glucose Point of Care 226 mg/dl (65-105)
[2022-05-25 22:00] VITALS: BP 161/66; PULSE 63; RESP 20; TEMP 36.4; O2SAT 96
[2022-05-26 06:00] VITALS: BP 146/50; PULSE 53; RESP 14; TEMP 36.2; O2SAT 98
[2022-05-26 08:00] LABS: Glucose Point of Care 64 mg/dl (65-105)
--- NOTE | 2022-05-26 08:09 | PC.NURSE ---
Spoke with Dr Hensley regarding blood glucose of 64 with scheduled 45 units of lantus. He will be cutting the dose down and lantus will be given after breakfast. Pt is currently drinking two apple juices.
[2022-05-26 08:21] LABS: Glucose Point of Care 100 mg/dl (65-105)
[2022-05-26] MEDS: OLMESARTAN MEDOXOMIL 20 MG TABLET 40 MG PO (08:50)
[2022-05-26] MEDS: MEMANTINE 10 MG TABLET PO ×2 (08:50→16:40)
[2022-05-26] MEDS: hydrALAZINE HCL 25 MG TABLET PO ×2 (08:50→16:39)
[2022-05-26] MEDS: DOXYCYCLINE HYCLATE 100 MG TABLET PO ×2 (08:50→20:12)
[2022-05-26] MEDS: DOCUSATE SODIUM 100 MG CAPSULE PO (08:50)
[2022-05-26] MEDS: amLODIPine BESYLATE 5 MG TABLET 10 MG PO (08:50)
[2022-05-26] MEDS: FUROSEMIDE 40 MG TABLET PO (08:50)
[2022-05-26] MEDS: PARoxetine 20 MG TABLET PO (08:50)
[2022-05-26] MEDS: THERAPEUTIC MULTIVITAMINS/MINERALS TAB (*BKC) 1 TABLET PO (08:52)
[2022-05-26] MEDS: FERROUS SULFATE 324 MG TABLET PO (08:52)
[2022-05-26] MEDS: ATORVASTATIN 20 MG TABLET PO (08:52)
[2022-05-26] MEDS: ENOXAPARIN 40 MG/0.4 ML SYRINGE SUB-Q (08:52)
[2022-05-26 08:53] VITALS: PULSE 56
[2022-05-26] MEDS: NEBIVOLOL HCL 5 MG TABLET PO (08:53)
[2022-05-26] MEDS: INSULIN GLARGINE (*BKC) 100 UNITS/ML 25 UNITS SUB-Q (08:53)
--- NOTE | 2022-05-26 11:06 | PCPTNOTE ---
Ortho consult pending. Waiting for recommendations prior to resuming therapy. Will follow.
[2022-05-26 11:15] LABS: Glucose Point of Care 188 mg/dl (65-105)
[2022-05-26] MEDS: ACETAMINOPHEN 325 MG TABLET 650 MG PO (11:17)
[2022-05-26 14:00] VITALS: BP 139/60; PULSE 53; RESP 14; TEMP 35.7; O2SAT 96
--- NOTE | 2022-05-26 14:33 | PM.IMPN ---
Progress Note: A&P Assessment and Plan (1) Multifocal pneumonia: Code(s): J18.9 - Pneumonia, unspecified organism Status: Acute Assessment and Plan: No cough. Normal WBC and no fevers. CXR showing no acute process. Spine CT showing RUL and LLL airspace disease. Consider PNA. She was started on Rocephin and Doxycycline. No BCx collected. Continue antibiotics. Continue to monitor. (2) Ankle fracture: Code(s): S82.899A - Other fracture of unspecified lower leg, initial encounter for closed fracture Status: Acute Assessment and Plan: Patient had a fall prompting this admission. Additional imaging since admission with right hip and pelvis showing no acute osseous process. Right ankle xray did show: Nondisplaced fractures of the distal fibula and posterior malleolus with nondisplaced chronic nonunited fracture at the tip the medial malleolus. Ortho consult ordered and appreciate their input. Bedrest. Placement being planned (3) CHF (congestive heart failure): Code(s): I50.9 - Heart failure, unspecified Status: Acute Assessment and Plan: BNP [address] scan as mentioned above. [place] she had mild acute on chronic Diastolic CHF. She was started on IV Lasix. Echo showing EF 50-55%, Grade II diastolic dysfunction and mild valvular disease. CXR more consistent with PNA. Continue oral Lasix. Follow. (4) Fall: Code(s): W19.XXXA - Unspecified fall, initial encounter Status: Acute Assessment and Plan: Patient having falls. CXR clear. Right knee xray showing no acute findings. HCT showing no acute intracranial abnormalities. Cervical CT showing moderate to severe cervical spondylosis, T/L CT showing severe lumbar spondylosis with acute findings. Right ankle fracture noted and ortho consulted. Monitor closely. Resume PT/OT when okay with ortho. (5) History of diabetes mellitus: Code(s): Z86.39 - Personal history of other endocrine, nutritional and metabolic disease Status: Acute Assessment and Plan: A1c 7.3. The patient's blood glucose was reviewed on 05/26. Glucose with wide flucuations. Continue AccuCheks covering with sliding scale. Hypoglycemia protocol available as needed. Decrease lantus again. Follow (6) History of hypertension: Code(s): Z86.79 - Personal history of other diseases of the circulatory system Status: Acute Assessment and Plan: Patient's blood pressure was reviewed on 05/26 Blood pressure better controlled Will continue current medications. (7) Elevated LFTs: Code(s): R79.89 - Other specified abnormal findings of blood chemistry Status: Acute Assessment and Plan: AST/ALT have been mildly elevated chronically. levels are at her baseline. CT Abdomen in 2021 showing cirrhosis. Hepatitis panel negative. Ammonia level 15. Cirrhosis probably explains the mild thrombocytopenia. Defer to PCP for further management. Plan Patient is Full Code Lovenox for DVT Prophylaxis. Subjective Date/time seen: 05/26/22 14:33 Interval history: 82yo female HTN, HLD, CHF, DM and dementia presenting after multiple falls.?? No complaints. No issues overnight. No chest pain or shortness of breath. Ankle pain is controlled. Exam Narrative: AF 96.3 139/60 53 14 96% ra Gen - NARD lying flat in bed Chest - Lungs are clear to auscultation bilaterally. CV - RRR S1/S2 Abd - Soft, NT/ND, Positive BS Ext - Mild bruising around the right ankle. Trace right pedal edema. Psych - Nml mood and affect Skin - Warm and dry. Bruising noted right upper posterior shoulder Objective Data Vital Signs Vital Signs: Vital Signs - 24 hr 05/25/22 22:00 05/26/22 06:00 05/26/22 08:53 Temperature 97.5 F L 97.2 F L Pulse Rate 63 53 L 56 L Respiratory Rate 20 14 Blood Pressure 161/66 H 146/50 H Pulse Oximetry 96 98 Oxygen Delivery 05/26/22 08:50 05/26/22 14:00 Te
[2022-05-26] MEDS: INSULIN ASPART (*BKC) 100 UNITS/ML SUB-Q (16:42)
[2022-05-26 16:51] LABS: Glucose Point of Care 315 mg/dl (65-105)
[2022-05-26 16:51] LABS: Glucose Point of Care 325 mg/dl (65-105)
[2022-05-26 18:22] LABS: Glucose Point of Care 241 mg/dl (65-105)
[2022-05-26 20:14] LABS: Glucose Point of Care 211 mg/dl (65-105)
[2022-05-26 22:00] VITALS: BP 133/45; PULSE 56; RESP 16; TEMP 36.7; O2SAT 98
[2022-05-27 06:00] VITALS: BP 142/55; PULSE 54; RESP 16; TEMP 36.7; O2SAT 98
[2022-05-27] MEDS: DOXYCYCLINE HYCLATE 100 MG TABLET PO ×2 (07:59→20:25)
[2022-05-27] MEDS: MEMANTINE 10 MG TABLET PO ×2 (07:59→16:52)
[2022-05-27] MEDS: hydrALAZINE HCL 25 MG TABLET PO ×2 (07:59→16:52)
[2022-05-27] MEDS: DOCUSATE SODIUM 100 MG CAPSULE PO (08:02)
[2022-05-27 08:06] LABS: Glucose Point of Care 92 mg/dl (65-105)
[2022-05-27] MEDS: OLMESARTAN MEDOXOMIL 20 MG TABLET 40 MG PO (08:43)
[2022-05-27] MEDS: ENOXAPARIN 40 MG/0.4 ML SYRINGE SUB-Q (08:43)
[2022-05-27] MEDS: ATORVASTATIN 20 MG TABLET PO (08:43)
[2022-05-27] MEDS: THERAPEUTIC MULTIVITAMINS/MINERALS TAB (*BKC) 1 TABLET PO (08:43)
[2022-05-27] MEDS: amLODIPine BESYLATE 5 MG TABLET 10 MG PO (08:45)
[2022-05-27] MEDS: FERROUS SULFATE 324 MG TABLET PO (08:45)
[2022-05-27] MEDS: FUROSEMIDE 40 MG TABLET PO (08:45)
[2022-05-27 08:46] VITALS: PULSE 50
[2022-05-27] MEDS: INSULIN GLARGINE (*BKC) 100 UNITS/ML 25 UNITS SUB-Q (09:10)
[2022-05-27] MEDS: PARoxetine 20 MG TABLET PO (09:10)
[2022-05-27 11:38] LABS: Glucose Point of Care 165 mg/dl (65-105)
[2022-05-27 14:00] VITALS: BP 130/40; PULSE 51; RESP 18; TEMP 36.1; O2SAT 96
--- NOTE | 2022-05-27 14:04 | PM.IMPN ---
Progress Note: A&P Assessment and Plan (1) Multifocal pneumonia: Code(s): J18.9 - Pneumonia, unspecified organism Status: Acute Assessment and Plan: No cough. Normal WBC and no fevers. CXR showing no acute process. Spine CT showing RUL and LLL airspace disease. Consider PNA. She was started on Rocephin and Doxycycline. No BCx collected. Continue antibiotics. Change to oral. Continue to monitor. (2) Ankle fracture: Code(s): S82.899A - Other fracture of unspecified lower leg, initial encounter for closed fracture Status: Acute Assessment and Plan: Patient had a fall prompting this admission with initial imaging showing no acute findings. Additional imaging since admission of the right hip and pelvis showing no acute osseous process. Right ankle xray did show: Nondisplaced fractures of the distal fibula and posterior malleolus with nondisplaced chronic nonunited fracture at the tip the medial malleolus. Ortho consult ordered and appreciate their input. Bedrest. Brace placed. Placement being planned (3) CHF (congestive heart failure): Code(s): I50.9 - Heart failure, unspecified Status: Acute Assessment and Plan: BNP [address] scan as mentioned above. [place] she had mild acute on chronic Diastolic CHF. She was started on IV Lasix. Echo showing EF 50-55%, Grade II diastolic dysfunction and mild valvular disease. Imaging more consistent with PNA. Changed to oral lasix; continue oral Lasix. Follow. (4) Fall: Code(s): W19.XXXA - Unspecified fall, initial encounter Status: Acute Assessment and Plan: Patient having falls. CXR clear. Right knee xray showing no acute findings. HCT showing no acute intracranial abnormalities. Cervical CT showing moderate to severe cervical spondylosis, T/L CT showing severe lumbar spondylosis with acute findings. Right ankle fracture noted and ortho consulted. Monitor closely. Continue PT/OT per ortho. (5) History of diabetes mellitus: Code(s): Z86.39 - Personal history of other endocrine, nutritional and metabolic disease Status: Acute Assessment and Plan: A1c 7.3. The patient's blood glucose was reviewed on 05/27 Glucose with wide flucuations. Continue AccuCheks covering with sliding scale. Hypoglycemia protocol available as needed. Continue lower dose lantus (6) History of hypertension: Code(s): Z86.79 - Personal history of other diseases of the circulatory system Status: Acute Assessment and Plan: Patient's blood pressure was reviewed on 05/27 Blood pressure well controlled Will continue current medications. (7) Elevated LFTs: Code(s): R79.89 - Other specified abnormal findings of blood chemistry Status: Acute Assessment and Plan: AST/ALT have been mildly elevated chronically. levels are at her baseline. CT Abdomen in 2021 showing cirrhosis. Hepatitis panel negative. Ammonia level 15. Cirrhosis probably explains the mild thrombocytopenia. Defer to PCP for further management. Plan Patient is Full Code Lovenox for DVT Prophylaxis. Disposition: Discharge to rehab when bed available. Subjective Date/time seen: 05/27/22 14:04 Interval history: 82yo female HTN, HLD, CHF, DM and dementia presenting after multiple falls.?? Patient felt cold yesterday but better after a warm blanket. No fevers. Slept well last night. Feels better today. She did wear the brace to the ankle yesterday. The ankle pain is tolerable. Exam Narrative: AF 98.0 142/55 50 16 98% ra Gen - NARD Chest - bibasilar inspiratory crackle, nml rr CV - RRR S1/S2 Abd - Soft, NT/ND, Positive BS Ext - Mild bruising around the right ankle. Trace right pedal edema. Psych - Nml mood and affect Skin - Warm and dry. Bruising noted right upper posterior shoulder without pain Objective Data Vital Signs Vital Signs: Vital Signs - 24 hr 05/26/22 22:00 05/27/22
[2022-05-27 16:56] LABS: Glucose Point of Care 295 mg/dl (65-105)
[2022-05-27] MEDS: INSULIN ASPART (*BKC) 100 UNITS/ML SUB-Q (17:07)
[2022-05-27 20:00] VITALS: PULSE 51; RESP 18; O2SAT 96
[2022-05-27] MEDS: CEFDINIR 300 MG CAPSULE PO (20:25)
[2022-05-27 21:59] VITALS: BP 121/47; PULSE 55; RESP 14; TEMP 36.1; O2SAT 98
[2022-05-28 05:56] VITALS: BP 145/45; PULSE 57; RESP 14; TEMP 36.4; O2SAT 97
[2022-05-28 07:54] LABS: Glucose Point of Care 121 mg/dl (65-105)
--- NOTE | 2022-05-28 08:10 | PM.DS ---
DS: Admitting Diagnosis Discharge Date 05/28/22 Admitting Diagnosis falls DS: Discharge Diagnosis Discharge Diagnosis (1) Multifocal pneumonia: Code(s): J18.9 - Pneumonia, unspecified organism Status: Acute Assessment and Plan: No cough. Normal WBC and no fevers. CXR showing no acute process. Spine CT showing RUL and LLL airspace disease. Consider PNA. She was started on Rocephin and Doxycycline. No BCx collected. Continue antibiotics. Change to oral. Continue to monitor. (2) Ankle fracture: Code(s): S82.899A - Other fracture of unspecified lower leg, initial encounter for closed fracture Status: Acute Assessment and Plan: Patient had a fall prompting this admission with initial imaging showing no acute findings. Additional imaging since admission of the right hip and pelvis showing no acute osseous process. Right ankle xray did show: Nondisplaced fractures of the distal fibula and posterior malleolus with nondisplaced chronic nonunited fracture at the tip the medial malleolus. Ortho consult ordered and appreciate their input. Bedrest. Brace placed. Placement being planned (3) CHF (congestive heart failure): Code(s): I50.9 - Heart failure, unspecified Status: Acute Assessment and Plan: BNP [address] scan as mentioned above. [place] she had mild acute on chronic Diastolic CHF. She was started on IV Lasix. Echo showing EF 50-55%, Grade II diastolic dysfunction and mild valvular disease. Imaging more consistent with PNA. Changed to oral lasix; continue oral Lasix. Follow. (4) Fall: Code(s): W19.XXXA - Unspecified fall, initial encounter Status: Acute Assessment and Plan: Patient having falls. CXR clear. Right knee xray showing no acute findings. HCT showing no acute intracranial abnormalities. Cervical CT showing moderate to severe cervical spondylosis, T/L CT showing severe lumbar spondylosis with acute findings. Right ankle fracture noted and ortho consulted. Monitor closely. Continue PT/OT per ortho. (5) History of diabetes mellitus: Code(s): Z86.39 - Personal history of other endocrine, nutritional and metabolic disease Status: Acute Assessment and Plan: A1c 7.3. The patient's blood glucose was reviewed on 05/27 Glucose with wide flucuations. Continue AccuCheks covering with sliding scale. Hypoglycemia protocol available as needed. Continue lower dose lantus (6) History of hypertension: Code(s): Z86.79 - Personal history of other diseases of the circulatory system Status: Acute Assessment and Plan: Patient's blood pressure was reviewed on 05/27 Blood pressure well controlled Will continue current medications. (7) Elevated LFTs: Code(s): R79.89 - Other specified abnormal findings of blood chemistry Status: Acute Assessment and Plan: AST/ALT have been mildly elevated chronically. levels are at her baseline. CT Abdomen in 2021 showing cirrhosis. Hepatitis panel negative. Ammonia level 15. Cirrhosis probably explains the mild thrombocytopenia. Defer to PCP for further management. Plan Patient is Full Code Lovenox for DVT Prophylaxis. Disposition: Discharge to rehab when bed available. DS: Summary Hospital Course Hospital Course: 82yo female HTN, HLD, CHF, DM and dementia presenting after multiple falls. She was started on Rocephin and Doxycycline. No BCx collected. Continue antibiotics. Change to oral. Continue to monitor. Patient had a fall prompting this admission with initial imaging showing no acute findings. Additional imaging since admission of the right hip and pelvis showing no acute osseous process. Right ankle xray did show:?Nondisplaced fractures of the distal fibula and posterior malleolus with nondisplaced chronic nonunited fracture at the tip the medial malleolus. Ortho consult ordered and appreciate their input. Bedrest. Brace placed. Placement katerina
[2022-05-28] MEDS: DOCUSATE SODIUM 100 MG CAPSULE PO (08:36)
[2022-05-28] MEDS: NEBIVOLOL HCL 5 MG TABLET PO (08:36)
[2022-05-28] MEDS: THERAPEUTIC MULTIVITAMINS/MINERALS TAB (*BKC) 1 TABLET PO (08:36)
[2022-05-28] MEDS: ATORVASTATIN 20 MG TABLET PO (08:36)
[2022-05-28] MEDS: FERROUS SULFATE 324 MG TABLET PO (08:36)
[2022-05-28] MEDS: OLMESARTAN MEDOXOMIL 20 MG TABLET 40 MG PO (08:36)
[2022-05-28] MEDS: DOXYCYCLINE HYCLATE 100 MG TABLET PO (08:37)
[2022-05-28] MEDS: CEFDINIR 300 MG CAPSULE PO ×2 (08:37→20:16)
[2022-05-28] MEDS: PARoxetine 20 MG TABLET PO (08:37)
[2022-05-28] MEDS: FUROSEMIDE 40 MG TABLET PO (08:37)
[2022-05-28] MEDS: MEMANTINE 10 MG TABLET PO ×2 (08:37→17:40)
[2022-05-28] MEDS: amLODIPine BESYLATE 5 MG TABLET 10 MG PO (08:38)
[2022-05-28] MEDS: ENOXAPARIN 40 MG/0.4 ML SYRINGE SUB-Q (08:38)
[2022-05-28] MEDS: hydrALAZINE HCL 25 MG TABLET PO ×2 (08:40→17:40)
[2022-05-28] MEDS: INSULIN GLARGINE (*BKC) 100 UNITS/ML 25 UNITS SUB-Q (08:41)
[2022-05-28 11:44] LABS: Glucose Point of Care 246 mg/dl (65-105)
[2022-05-28] MEDS: INSULIN ASPART (*BKC) 100 UNITS/ML SUB-Q ×2 (12:56→17:40)
[2022-05-28 14:00] VITALS: BP 144/47; PULSE 53; RESP 16; TEMP 36; O2SAT 99
[2022-05-28 16:47] LABS: Glucose Point of Care 261 mg/dl (65-105)
[2022-05-28 20:51] LABS: Glucose Point of Care 246 mg/dl (65-105)
[2022-05-28 21:25] VITALS: BP 129/63; PULSE 61; RESP 18; TEMP 36.6; O2SAT 98
[2022-05-29 05:06] VITALS: BP 133/44; PULSE 52; RESP 17; TEMP 36.7; O2SAT 99
[2022-05-29 08:08] LABS: Glucose Point of Care 133 mg/dl (65-105)
[2022-05-29 08:22] VITALS: BP 142/66; PULSE 62
[2022-05-29] MEDS: THERAPEUTIC MULTIVITAMINS/MINERALS TAB (*BKC) 1 TABLET PO (09:37)
[2022-05-29] MEDS: CEFDINIR 300 MG CAPSULE PO (09:37)
[2022-05-29] MEDS: NEBIVOLOL HCL 5 MG TABLET PO (09:37)
[2022-05-29] MEDS: OLMESARTAN MEDOXOMIL 20 MG TABLET 40 MG PO (09:37)
[2022-05-29] MEDS: ATORVASTATIN 20 MG TABLET PO (09:37)
[2022-05-29] MEDS: hydrALAZINE HCL 25 MG TABLET PO (09:38)
[2022-05-29] MEDS: ENOXAPARIN 40 MG/0.4 ML SYRINGE SUB-Q (09:38)
[2022-05-29] MEDS: FERROUS SULFATE 324 MG TABLET PO (09:38)
[2022-05-29] MEDS: PARoxetine 20 MG TABLET PO (09:38)
[2022-05-29] MEDS: DOCUSATE SODIUM 100 MG CAPSULE PO (09:38)
[2022-05-29] MEDS: FUROSEMIDE 40 MG TABLET PO (09:38)
[2022-05-29] MEDS: amLODIPine BESYLATE 5 MG TABLET 10 MG PO (09:38)
[2022-05-29] MEDS: MEMANTINE 10 MG TABLET PO (09:38)
[2022-05-29] MEDS: INSULIN GLARGINE (*BKC) 100 UNITS/ML 25 UNITS SUB-Q (09:39)
[2022-05-29 11:46] LABS: Glucose Point of Care 192 mg/dl (65-105)
[2022-05-29 13:26] LABS: EDCOVIDSCREEN Negative (Negative)
[2022-05-29 14:33] VITALS: BP 142/54; PULSE 62; RESP 17; TEMP 36.7; O2SAT 95
--- NOTE | 2022-06-30 11:44 | PM.CNOR ---
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 Chronic diastolic (congestive) heart failure Chronic pain disorder Chronic pancreatitis Chronic right hip pain 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) Cognitive impairment Constipation Diabetic nephropathy Diabetic neuropathy Essential (primary) hypertension Gastroparesis due to DM Granulomatous lung disease History of right breast cancer Hypersomnia 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) LBBB (left bundle branch block) Liver, cirrhosis, portal Lumbar spondylosis MDD (major depressive disorder), recurrent episode, severe Mild cognitive impairment with memory loss Nephropathy associated with another disease Non-rheumatic mitral regurgitation Obesity (07/07/14) Occlusion and stenosis of bilateral carotid arteries BRO (obstructive sleep apnea) Portal hypertension (07/07/14) Primary generalized (osteo)arthritis PVD (peripheral vascular disease) Renovascular hypertension Secondary esophageal varices without bleeding Splenomegaly (07/07/14) TIA (transient ischemic attack) Trochanteric bursitis of right hip Valvular heart disease Vascular dementia Vitamin D deficiency Surgical History Surgical History H/O hemicolectomy H/O subtotal mastectomy of right breast Hx of appendectomy Hx of cataract extraction Hx of hysterectomy S/P total knee arthroplasty Family History Family History Sibling Family history of diabetes mellitus in first degree relative Family history of malignant neoplasm of breast in first degree relative, Onset Age: 49 Mother Family history of pancreatic cancer, Onset Age: 85 Other Family history of malignant neoplasm of breast Social History Social History Social History: with 3 children. Retired. Currently at [employer]. Lifelong nonsmoker. No alcohol or illicit substance use. Surrogate decision maker: Jose Alfredo Samuel, son. Code status: Full code. Smoking status: Never smoker Second hand tobacco smoke exposure: No Alcohol intake: never Substance use: never Lack of Transportation: No Lack of Food: Never True Current Housing: I Have Housing Concerned About Future Housing: No Difficulty Paying Gas/Electric Bills: No Difficulty Paying for Meds: No Currently Unemployed: No Education: High School Diploma/GED Difficulty w/ Childcare or Family Care: No Spiritual care concerns: No Meds Home Medications and Allergies Home Medications Medication Instructions Recorded Confirmed Type ovortfet-due-afnwb ac 400 1 tablet PO DAILY 12/16/18 06/27/22 History mcg-calcium carb 500 mg-vit K1 20 mcg tablet (Women's 50 Plus Daily Formula) atorvastatin 20 mg tablet 20 mg PO DAILY #90 tabs 07/02/20 06/27/22 Rx nebivolol 5 mg tablet (Bystolic) 5 mg PO DAILY #90 tabs 02/26/21 06/27/22 Rx memantine 10 mg tablet 10 mg PO BID #180 tabs 12/10/21 06/27/22 Rx blood-glucose meter (Contour Meter) #1 ea 01/17/22 06/27/22 Rx amlodipine 10 mg tablet 10 mg PO DAILY #90 tabs 01/24/22 06/27/22 Rx blood sugar diagnostic (Contour #300 ea 03/21/22 06/27/22 Rx Test Strips) furosemide 20 mg tablet 40 mg PO DAILY 05/23/22 06/27/22 History hydralazine 25 mg tablet 25 mg PO BID 05/23/22 06/27/22 History docusate s
== END 2022-05-29 16:20 ==
LOC: ANHED 18:58 → ANH3MEDSUR 22:48
PROVIDERS: Emergency Medicine; Internal Medicine; Admitting Provider Internal Medicine; Emergency Provider Emergency Medicine; PCP Family Medicine; Visit Provider Student in an Organized Health Care Education/Training Program
DX: J18.9 Pneumonia, unspecified organism (principal); R53.1 Weakness; S82.54XA Nondisplaced fracture of medial malleolus of right tibia, initial encounter for closed fracture; S82.64XA Nondisplaced fracture of lateral malleolus of right fibula, initial encounter for closed fracture; X58.XXXA Exposure to other specified factors, initial encounter; W19.XXXA Unspecified fall, initial encounter; R29.6 Repeated falls; I13.0 Hypertensive heart and chronic kidney disease with heart failure and stage 1 through stage 4 chronic kidney disease, or unspecified chronic kidney disease; N18.2 Chronic kidney disease, stage 2 (mild); I50.23 Acute on chronic systolic (congestive) heart failure; E11.40 Type 2 diabetes mellitus with diabetic neuropathy, unspecified; E11.21 Type 2 diabetes mellitus with diabetic nephropathy; Z20.822 Contact with and (suspected) exposure to COVID-19; E78.5 Hyperlipidemia, unspecified; R00.0 Tachycardia, unspecified; I44.7 Left bundle-branch block, unspecified; F03.90 Unspecified dementia, unspecified severity, without behavioral disturbance, psychotic disturbance, mood disturbance, and anxiety; D64.9 Anemia, unspecified; I25.10 Atherosclerotic heart disease of native coronary artery without angina pectoris; I70.0 Atherosclerosis of aorta; G89.4 Chronic pain syndrome; K86.1 Other chronic pancreatitis; I69.319 Unspecified symptoms and signs involving cognitive functions following cerebral infarction; I10 Essential (primary) hypertension; G47.33 Obstructive sleep apnea (adult) (pediatric); Z99.89 Dependence on other enabling machines and devices; E55.9 Vitamin D deficiency, unspecified; E66.9 Obesity, unspecified; R79.89 Other specified abnormal findings of blood chemistry; M47.816 Spondylosis without myelopathy or radiculopathy, lumbar region; M47.812 Spondylosis without myelopathy or radiculopathy, cervical region; Z90.11 Acquired absence of right breast and nipple; Z68.34 Body mass index [BMI] 34.0-34.9, adult; Z85.9 Personal history of malignant neoplasm, unspecified; Z79.4 Long term (current) use of insulin; Z79.899 Other long term (current) drug therapy; Z83.3 Family history of diabetes mellitus; Z80.3 Family history of malignant neoplasm of breast
CPT/HCPCS: 36415; 70450; 71045; 71046; 72125; 72128; 72131; 73502; 73564; 73610; 80053; 80074; 81001; 82140; 82607; 82746; 82948; 83735; 83880; 84443; 84484; 85025; 85055; 85610; 85730; 87426; 93005; 96365; 96366; 96367; 96372; 96375; 96376; 97110; 97116; 97161; 97166; 97530; 97535; 99285; A9270; C8929; C9803; G0378; J0456; J0696; J1650; J1815; J1940; Q9957

== ENCOUNTER 2022-06-27 08:33 | Inpatient (IN) | payer OTHER, SELFPAY ==
[2022-06-27] VITALS (15 sets, daily range): BP systolic 102–146; BP diastolic 48–105; PULSE 67–84; RESP 15–27; TEMP 35.9–36.6; O2SAT 94–97
--- NOTE | ~2022-06-27 | US_ITS ---
EXAMINATION: US venous doppler LE RT DATE: 06/27/2022 23:29 INDICATION: Left lower limb swelling TECHNIQUE: Tyler scale images without and with compression and Doppler images of the left lower extrem ity veins were obtained. COMPARISON: None FINDINGS: The left common femoral vein, profunda femoral vein, femoral vein, popliteal vein, peroneal trunk, posterior tibial veins, and greater saphenous vein are patent. IMPRESSION: 1. Patent left lower extremity veins. No evidence of deep venous thrombosis. Reviewed, dictated and finalized at location A.
--- NOTE | ~2022-06-27 | CT_ITS ---
EXAMINATION: CT chest abdomen pelvis wo con DATE: 06/30/2022 08:44 INDICATION: Abnormal liver fraction test. Shortness of breath. TECHNIQUE: Computed tomography (CT) of the chest, abdomen, and pelvis was performed without intraveno us contrast. Automated exposure control and iterative reconstruction technique were employed. The dos e-length product was 1530.61 mGy-cm. COMPARISON: CT chest, abdomen, and pelvis 08/26/2021 FINDINGS: CHEST CT: There are patchy airspace opacities with air bronchograms in all lobes. There is widespread septal th ickening in the lungs. There are small pleural effusions. Cardiomegaly is noted. There are coronary a rtery calcifications. No pericardial effusion. Calcified mediastinal lymph nodes are consistent with old granulomatous disease. There is mild mediastinal lymphadenopathy, likely reactive. There are brid ging endplate osteophytes at multiple levels in the spine, consistent with diffuse idiopathic skeleta l hyperostosis (DISH). There is mild thoracic spondylosis. ABDOMEN/PELVIS CT: The liver is small with a nodular surface contour, consistent with cirrhosis. Calcifications in the l iver and spleen are consistent with old granulomatous disease. The spleen is normal in size. The gall bladder is absent. There is chronic hypoattenuation of the head of the pancreas with calcifications i n the pancreas, consistent with chronic pancreatitis. Left adrenal gland is normal. Again seen are ma sses in right adrenal gland measuring up to 1.7 cm measuring soft tissue attenuation, likely adenomas . There is a 2.2 cm cyst of right kidney. Left kidney is normal. Stool distends the rectum. There is an anastomosis in the sigmoid colon. There is diverticulosis of the colon without evidence of diverti culitis. The appendix is not visualized. There is a small sliding hiatal hernia. There is wall thicke parisa of the esophagus and stomach, likely interstitial edema. There is a portacaval shunt from superi or mesenteric artery to the inferior vena cava. There is widespread body wall edema. There is a small volume of perihepatic ascites. There are no pathologically enlarged lymph nodes. There is severe lum bar spondylosis. IMPRESSION: 1. Severe diffuse lung disease, consistent with pulmonary edema and/or pneumonia. 2. Small pleural effusions. 3. Cirrhosis of the liver with portal venous hypertension. 4. Small volume of perihepatic ascites. Reviewed, dictated and finalized at location A. IMPRESSION: 1. Severe diffuse lung disease, consistent with pulmonary edema and/or pneumoni a. 2. Small pleural effusions. 3. Cirrhosis of the liver with portal venous hypertension. 4. Small volume of perihepatic ascites.
--- NOTE | ~2022-06-27 | XR_ITS ---
EXAMINATION: XR chest 2V DATE: 06/27/2022 09:15 INDICATION: Shortness of breath. TECHNIQUE: Frontal and lateral views of the chest were obtained. COMPARISON: Chest single view 05/25/2022, chest CT 08/26/2021, thoracic spine CT 05/23/2022 FINDINGS: Calcified right lung nodules and calcified mediastinal lymph nodes are consistent with old granulomatous disease. There are airspace opacities in right perihilar region and in all left lung zo claritza. There are trace pleural effusions. No pneumothorax. Cardiomegaly is noted. IMPRESSION: 1. Airspace opacities in right perihilar region and left lung with improvement on the right and worse parisa on the left, consistent with pneumonia versus pulmonary edema. 2. Cardiomegaly. Reviewed, dictated and finalized at location A. IMPRESSION: 1. Airspace opacities in right perihilar region and left lung with improvement on the right and worsening on the left, consistent with pneumonia versus pulmon luis edema. 2. Cardiomegaly.
--- NOTE | ~2022-06-27 | XR_ITS ---
XR chest 1V 06/30/2022 08:48 Indication: Shortness of breath Procedure: AP view of the chest Comparison: Comparison to multiple prior studies sequentially, with oldest reviewed study dated 08/2022. Findings: There is developing bilateral airspace consolidation, consistent with widespread pneumonia with areas of masslike consolidation. No acute osseous abnormality. Probable small pleural effusions. No pneumothorax. Impression: 1: Developing bilateral airspace consolidation, consistent with widespread pneumonia. Developing mass like densities in the upper lobes are most likely infectious, although follow-up is recommended. Reviewed, dictated and finalized at location B. Impression: 1: Developing bilateral airspace consolidation, consistent with widespread pneu monia. Developing masslike densities in the upper lobes are most likely infecti ous, although follow-up is recommended.
--- NOTE | ~2022-06-27 | XR_ITS ---
XR chest 1V portable 07/01/2022 08:14 Indication: CHF Procedure: AP portable chest Comparison: Comparison to multiple prior studies sequentially, with oldest reviewed study dated 05/23. Findings: Extensive bilateral airspace disease is not significantly changed compared with 06/30/2022. There is likely calcified mediastinal lymph nodes, consistent with chronic granulomatous disease. No significant effusion or pneumothorax. Impression: 1: Stable extensive bilateral airspace disease, most likely pneumonia versus edema. Reviewed, dictated and finalized at location L. Impression: 1: Stable extensive bilateral airspace disease, most likely pneumonia versus ed natalio.
--- NOTE | ~2022-06-27 | US_ITS ---
EXAMINATION:US venous doppler LE LT INDICATION:Left lower extremity swelling and redness TECHNIQUE: Multiple grayscale, color flow and Doppler images of the left lower extremity deep venous systems were obtained and reviewed. COMPARISON:11/21/2013 FINDINGS: The common femoral, superficial femoral and popliteal veins demonstrate normal respiratory variation, augmentation and compressibility. Color flow is also seen within the posterior tibial, pe roneal, greater saphenous and profunda veins. IMPRESSION: 1: No lower extremity deep venous thrombosis. Reviewed, dictated and finalized at location B.
--- NOTE | 2022-06-27 08:43 | ECG_ITS ---
Measurements Intervals [place] Rate: 79 P: [place]: 0 QRS: -14 QRSD: 174 T: 143 QT: 430 QTc: 496 Interpretive Statements ATRIAL FIBRILLATION LEFT BUNDLE BRANCH BLOCK BASELINE ARTIFACT- V5-V6 ABNORMAL ECG COMPARED TO ECG 05/23/2022 18:51:26 ATRIAL FIBRILLATION NOW PRESENT Electronically Signed On 06-27-2022 8:54:16 CDT by Zack Ortiz D.O.
[2022-06-27 09:03] LABS: Basophils Percent Auto 0.2 % (0.2-1.2); Eosinophils Percent Auto 0.1 % (0-4.4); Hematocrit 36.1 % (37.0-47.0); Hemoglobin 11.4 g/dL (12.0-15.0); Immature Granulocyte Absolute 0.02 K/mm3 (0.00-0.031); Immature Granulocyte Percent A 0.2 % (0-0.5); Immature Platelet Fraction Pct 3.9 % (0.9-11.2); Lymphocytes Absolute Auto 1.07 K/mm3 (0.9-3.2); Lymphocytes Percent Auto 12.1 % (18.3-44.2); Mean Corpuscular HGB Conc 31.6 g/dl (32-36); Mean Corpuscular Hemoglobin 27.2 pg (26-34); Mean Corpuscular Volume 86.2 fl (80-100); Mean Platelet Volume 10.4 fl (7.4-10.4); Monocytes Absolute Auto 0.7 K/mm3 (0.1-0.6); Monocytes Percent Auto 8.1 % (2.6-8.5); Neutrophils Percent Auto 79.3 % (45.5-73.1); Platelet Count Result 88 k/mm3 (150-375); Red Blood Count 4.19 M/mm3 (4.2-5.4); White Blood Count 8.9 K/mm3 (4.5-10.0)
[2022-06-27 09:08] LABS: Lactic Acid Reflex 1.4 mmol/L (0.7-2.0)
[2022-06-27 09:09] LABS: Alanine Aminotransferase 39 U/L (6-35); Albumin Level 2.9 g/dL (3.5-5.1); Alkaline Phosphatase 179 U/L (38-126); Anion Gap 5 mmol/L (8-16); Aspartate Amino Transferase 62 U/L (14-36); Bilirubin,Total 1.6 mg/dL (0.2-1.3); Blood Urea Nitrogen 27 mg/dL (7-17); Carbon Dioxide 25 mmol/L (22-30); Chloride 110 mmol/L (98-107); Estimated Glomerular Filt Rate 36; Glucose 140 mg/dL (65-110); Potassium 3.5 mmol/L (3.4-5.0); Sodium 140 mmol/L (137-145)
[2022-06-27 09:14] LABS: INR 1.3; Prothrombin Time 16.7 Seconds (11.1-14.7)
[2022-06-27 09:15] LABS: Partial Thromboplastin Time 33.8 SECONDS (22.3-36.8)
--- NOTE | 2022-06-27 09:46 | PC.NURSE ---
Pt to US
--- NOTE | 2022-06-27 09:50 | ED.GENADULT ---
HPI - General Adult General Chief complaint: Shortness of Breath/Dyspnea Stated complaint: SOB Time Seen by Provider: 06/27/22 09:25 History of Present Illness HPI narrative: Patient is an 82-year-old female here for evaluation of shortness of breath x4 days. Patient states that she has felt profoundly short of breath at rest and on exertion, she has been unable to lay down flat due to her dyspnea. Reports a chronic nonproductive cough. States that her left leg started getting red and swollen about 2 days ago. Recently hospitalized for CHF exacerbation. Patient denies any chest pain, fevers, chills, leg pain. Had recent ankle fx on the right. Arrives on 2L [place] without home O2 requirement. Related Data Home Medications Medication Instructions Recorded Confirmed [id number] ac 400 1 tablet PO DAILY 12/16/18 06/25/22 mcg-calcium carb 500 mg-vit K1 20 mcg tablet (Women's 50 Plus Daily Formula) furosemide 20 mg tablet 40 mg PO DAILY 05/23/22 06/25/22 hydralazine 25 mg tablet 25 mg PO BID 05/23/22 06/25/22 docusate sodium 100 mg capsule 100 mg PO DAILY 05/24/22 06/25/22 (Dulcolax Stool Softener (docusate)) alendronate 70 mg tablet 70 mg PO WEEKLY 05/25/22 06/25/22 Allergies Allergy/AdvReac Type Severity Reaction Status Date / Time No Known Allergies Allergy Unknown Verified 05/23/22 18:21 Review of Systems Review of Systems: Gen.: Denies fevers or chills Eyes: Denies eye pain or visual change ENT: Denies congestion Respiratory: Reports shortness of breath CV: Denies chest pain or palpitations GI: Denies abdominal pain nausea, emesis or diarrhea denies burning, urgency, frequency or hematuria Musculoskeletal: Denies back pain or muscle pain Neuro: Denies numbness, tingling, weakness or focal weakness Skin: Reports left lower extremity swelling Except as documented, all other systems reviewed and negative [facility] Past Medical History Medical History (Updated 06/27/22 @ 15:04 by Madelaine Dillon PA-C) Anemia, unspecified Angiodysplasia of colon without hemorrhage (07/07/14) Ankylosing hyperostosis Arthritis of knee Atherosclerosis of aorta 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 Chronic diastolic (congestive) heart failure Chronic pain disorder Chronic pancreatitis Chronic right hip pain 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) Cognitive impairment Constipation Diabetic nephropathy Diabetic neuropathy Essential (primary) hypertension Gastroparesis due to DM Granulomatous lung disease History of right breast cancer Hypersomnia 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) LBBB (left bundle branch block) Liver, cirrhosis, portal Lumbar spondylosis MDD (major depressive disorder), recurrent episode, severe Mild cognitive impairment with memory loss Nephropathy associated with another disease Non-rheumatic mitral regurgitation Obesity (07/07/14) Occlusion and stenosis of bilateral carotid arteries BRO (obstructive sleep apnea) Portal hypertension (07/07/14) Primary generalized (osteo)arthritis PVD (peripheral vascular disease) Renovascular hypertension Secondary esophageal varices without bleeding Splenomegaly (07/07/14) TIA (transient ischemic attack) Trochanteric bursitis of right hip Valvular heart disease Vascular dementia Vitamin D deficiency Surgical History Surgical History H/O hemicolectomy H/O subtotal mastectomy of right breast Hx of appendectomy Hx of cataract extraction Hx of hysterectomy S/P total knee arthroplasty Family History Family History Sibling Family history of diabetes mellitus in first degree relative Family history of malignant neoplasm of breast in first degree relative, Onset Age: 49 Mother
[2022-06-27 10:03] LABS: NT Pro B Type Natriuretic Pept 7570 pg/mL (19.9-100)
[2022-06-27] MEDS: FUROSEMIDE INJ 40 MG/4 ML VIAL IV PUSH ×2 (11:30→17:19)
[2022-06-27] MEDS: DOXYCYCLINE 100 MG/NS 100 ML 100 MG/100 ML BAG IVPB (11:32)
--- NOTE | 2022-06-27 11:37 | PC.NURSE ---
Pt has fracture in left ankle and is on 50% weight bearing with walking boot
[2022-06-27 12:32] LABS: Influenza A QL RT-PCR Negative (Negative); Influenza B QL RT-PCR Negative (Negative); SARS-CoV-2 RNA PCR Negative (Negative)
--- NOTE | 2022-06-27 13:46 | PM.IMHP ---
H&P: HPI History of Present Illness Date/Time: 06/27/22 12:45 Chief Complaint: Shortness of breath. Narrative: This is an 82-year-old female with history of dementia, type 2 diabetes mellitus, hypertension, hyperlipidemia, diastolic congestive heart failure, chronic thrombocytopenia, and multiple other comorbidities who presented to the emergency department via EMS from [facility] for evaluation of shortness of breath. The patient provides the following history. Over the last several days she has developed shortness of breath with exertion and now with rest, orthopnea, edema, nonproductive cough, and redness of the left lower leg. She currently has a walking boot which she is reportedly wearing for a right hip fracture sustained sometime last month. She denies fever, chills, sweats, chest pain, pleuritic pain, palpitations, sensations of racing heart, nausea, vomiting, and calf pain. On arrival to the ED she was afebrile with stable blood pressures and heart rate in the 60s to 80s, found to be in new onset atrial fibrillation. Labs were significant for a WBC count of 8.9, hemoglobin 11.4, platelets 88, normal electrolytes, BUN 27, creatinine 1.40, total bilirubin 1.6, AST 62, ALT 39, alkaline phosphatase 179, proBNP 7570. Chest x-ray showed cardiomegaly and pulmonary edema versus pneumonia. Left leg venous Doppler ultrasound was negative for DVT. In the ED she was given a dose of ceftriaxone, azithromycin, doxycycline, and 40 mg furosemide IV push. She is being admitted in this setting for further treatment and evaluation. At the time my evaluation she thinks she is feeling bit better and she reports putting out quite a bit of urine. Review of Systems Review of Systems: Twelve systems were reviewed and are negative except for as per HPI. 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 Chronic diastolic (congestive) heart failure Chronic pain disorder Chronic pancreatitis Chronic right hip pain 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) Cognitive impairment Constipation Diabetic nephropathy Diabetic neuropathy Essential (primary) hypertension Gastroparesis due to DM Granulomatous lung disease History of right breast cancer Hypersomnia 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) LBBB (left bundle branch block) Liver, cirrhosis, portal Lumbar spondylosis MDD (major depressive disorder), recurrent episode, severe Mild cognitive impairment with memory loss Nephropathy associated with another disease Non-rheumatic mitral regurgitation Obesity (07/07/14) Occlusion and stenosis of bilateral carotid arteries BRO (obstructive sleep apnea) Portal hypertension (07/07/14) Primary generalized (osteo)arthritis PVD (peripheral vascular disease) Renovascular hypertension Secondary esophageal varices without bleeding Splenomegaly (07/07/14) TIA (transient ischemic attack) Trochanteric bursitis of right hip Valvular heart disease Vascular dementia Vitamin D deficiency Surgical History Surgical History H/O hemicolectomy H/O subtotal mastectomy of right breast Hx of appendectomy Hx of cataract extraction Hx of hysterectomy S/P total knee arthroplasty Family History Family History Sibling Family history of diabetes mellitus in first degree relative Family history of malignant neoplasm of breast in first degree relative, Onset Age: 49 Mother Family history of pancreatic cancer, Onset Age: 85 Other Family history of malignant neoplasm of breast
--- NOTE | 2022-06-27 15:58 | ADMGEN ---
This patient, Marilyn Baker, was admitted to [facility] Surg Room 314-01. Patient/family oriented to hospital policies and general routines including ID bracelet, bed and alarms, visiting hours, pain management, procedures, bathroom and other care routines, personal items, smoking policy, room service/diet, and visiting hours. Information on how to activate the Rapid Response Team has been discussed. Patient/Family are encouraged to report perceived risks to care and to ask questions if they do not understand what they are told or what they should do.
--- NOTE | 2022-06-27 16:32 | PM.CNCAR ---
Assessment and Plan Assessment and plan (1) New onset atrial fibrillation: Code(s): I48.91 - Unspecified atrial fibrillation Status: Acute Assessment and Plan: Heart rate generally seems to be controlled. Will start her on telemetry monitoring. 2D echocardiogram Doppler will be ordered and reviewed. She did have an echocardiogram recently however which showed low normal ejection fraction. She has a chads Vasc score of at least 7. I talked to her and her family about risks benefits alternatives anticoagulation and there willing to proceed. Will start Eliquis 5 mg p.o. b.i.d.. (2) Hypertension associated with diabetes: Code(s): E11.59 - Type 2 diabetes mellitus with other circulatory complications; I15.2 - Hypertension secondary to endocrine disorders Status: Acute Assessment and Plan: Continue hydralazine, nebivolol, olmesartan (3) Hyperlipidemia associated with type 2 diabetes mellitus: Code(s): E11.69 - Type 2 diabetes mellitus with other specified complication; E78.5 - Hyperlipidemia, unspecified Status: Acute Assessment and Plan: Continue statin (4) Acute on chronic systolic and diastolic heart failure, NYHA class 3: Code(s): I50.43 - Acute on chronic combined systolic (congestive) and diastolic (congestive) heart failure Status: Acute Assessment and Plan: Start furosemide 40 mg IV q.12 hours. Low-salt diet. Echocardiogram was ordered. Intake and output as well as daily weights as well as daily BMP. Nebivolol will be continued. On losartan also should be continued Plan Regarding CHF, will start furosemide 40 mg IV q.12 hours. Intake and output, daily weights, low-salt diet, to be echocardiogram Doppler, continue beta-abhishek, olmesartan, hydralazine. Treatment of cellulitis be deferred to the hospitalist History of Present Illness History of Present Illness Consult date/time: 06/27/22 16:32 Requesting physician: Madelaine Dillon PA-C Consult reason: atrial fibrillation and congestive heart failure Reason For Visit: CHF Exacerbation/Cellulitis/New Onset A Fib Narrative: Date of service 06/27/2022 Reason for consultation: CHF, AFib Requesting provider: Madelaine JONAS History: Patient is an 82-year-old female who has dementia, high blood pressure, hyperlipidemia presented hospital because of cellulitis as well as shortness of breath. Patient states she has been short of breath for at least a week or so. She has had worsening swelling during the same time frame. She denies any chest pain, syncope, presyncope, paroxysmal nocturnal dyspnea, orthopnea. She denies any palpitations. She came to the hospital and has been receiving IV diuretics as well as treatment for cellulitis. Cardiology consultation was requested because she was found to be in atrial fibrillation the EKG as well as heart failure Review of Systems Review of Systems: All systems reviewed & are unremarkable except as noted in HPI and below Constitutional: Constitutional: Denies chills Eyes: Eyes: Denies blurry vision ENT: Reports Normal hearing present Cardiovascular: Cardiovascular: Denies chest pain, Reports pedal edema and Reports leg edema Respiratory: Respiratory: Denies chest congestion, Reports dyspnea and Reports dyspnea on exertion Gastrointestinal: Gastrointestinal: Denies abdominal pain Genitourinary: Genitourinary: Denies hematuria Musculoskeletal: Musculoskeletal: Denies back pain and Denies myalgias Integumentary/Breasts: Skin/Breast: Reports erythema and Reports skin pain Neurologic: Denies Abnormal speech present Psychiatric: Psychiatric: Denies anxiety, Denies behavioral changes and Reports confusion Endocrine: Endocrine: Denies excessive sweating Hematologic/Lymphatic: Hematologic/Lymphatic: Denies easy bleeding Allergic/Immunologic: Allergic/Immunologic: Denies GI upset with certain foods PMFSH Past Medical History Medical
--- NOTE | 2022-06-27 17:54 | PC.NURSE ---
Pt fracture is right ankle and cellulitis is left leg.
[2022-06-27 17:59] LABS: Glucose Point of Care 231 mg/dl (65-105)
[2022-06-27] MEDS: APIXABAN 5 MG TABLET PO (20:05)
[2022-06-27] MEDS: INSULIN GLARGINE (*BKC) 100 UNITS/ML 20 UNITS SUB-Q (23:36)
[2022-06-27] MEDS: MEMANTINE 10 MG TABLET PO (23:36)
[2022-06-28] VITALS (10 sets, daily range): BP systolic 109–148; BP diastolic 43–89; PULSE 62–82; RESP 18; TEMP 35.9–36.4; O2SAT 91–96
--- NOTE | 2022-06-28 | ECHO_ITS ---
Patient Info Name: Marilyn Baker Age: 82 years : 1940 Gender: Female Ht: 64 in Wt: 180 lbs BSA: 1.95 m2 HR: 78 bpm BP: 140 / 89 mmHg Heart Rhythm: Atrial Fibrillation Technical Quality: Fair Exam Date: 06/28/2022 8:09 AM Exam Location: [facility] Pulmonary Exam Room: 314 Patient Status: Inpatient Admit Date: 06/27/2022 Staff Ordering Physician: Sebastian Adrian MD [employer] Post Weigher: Mara Pimentel RDCS Attending Provider: Albaro Beverly MD Referring Physician: Kaylah CERON; Exam Type: CA echo dop color flow w con Study Info Indications - AFIB Complete two-dimensional, color flow and Doppler transthoracic echocardiogram is performed with contrast to opacify the left ventricle and to improve the deliniation of the left ventricle endocardial borders. Complete two-dimensional, color flow and Doppler transthoracic echocardiogram is performed. Contrast/Agitated Saline Contrast/Ag. Saline: Definity Amount: 2.00 ml Administered By: Mara Pimentel [facility] Existing IV Access: Yes IV Access Condition: patent with no signs of infiltration Summary 1. Complete two-dimensional, color flow and Doppler transthoracic echocardiogram is performed. 2. Left ventricular chamber dimension is mildly enlarged. 3. There is mildly increased left ventricular wall thickness. 4. Left ventricular septal wall motion is abnormal with septal motion related to bundle branch block. 5. The left ventricular diastolic function is indeterminate. 6. Left atrial chamber dimension is moderately enlarged. 7. Right atrial chamber dimension is mildly enlarged. 8. There is mild aortic valve regurgitation. 9. There is mild aortic valve sclerosis. 10. There is mild to moderate mitral valve regurgitation. 11. The mitral valve annulus is moderately calcified. 12. There is mild tricuspid valve regurgitation. 13. Moderate pulmonary hypertension, estimated pulmonary arterial systolic pressure is 53 mmHg. 14. There is mild pulmonic regurgitation. Left Ventricle Left ventricular chamber dimension is mildly enlarged. Left ventricular systolic function is mildly reduced, estimated at 50-55%. There is mildly increased left ventricular wall thickness. Left ventricular septal wall motion is abnormal with septal motion related to bundle branch block. The left ventricular diastolic function is indeterminate. Right Ventricle Right ventricular chamber dimension is normal. Right ventricular systolic function is normal. Left Atria Left atrial chamber dimension is moderately enlarged. Right Atria Right atrial chamber dimension is mildly enlarged. Atrial Septum Intact interatrial septum visualized by color flow imaging. Aortic Valve The aortic valve is trileaflet. There is mild aortic valve sclerosis. There is no aortic valve stenosis. There is mild aortic valve regurgitation. Pulmonic Valve The pulmonic valve is normal. There is no pulmonic valve stenosis. There is mild pulmonic regurgitation. Mitral Valve There is no mitral valve stenosis. There is mild to moderate mitral valve regurgitation. The mitral valve annulus is moderately calcified. Tricuspid Valve The tricuspid valve leaflets are normal. There is no significant tricuspid valve stenosis. There is mild tricuspid valve regurgitation. Moderate pulmonary hypertension, estimated pulmonary arterial systolic pressure is 53 mmHg. Pericardium/Pleural The pericardium appears normal. There is no pericardial effusion. Inferior Vena Cava Dilated inferior vena cava
[2022-06-28 00:48] LABS: Hemoglobin A1C 6.7 % (<5.7)
--- NOTE | 2022-06-28 07:52 | PM.IMPN ---
Progress Note: A&P Assessment and Plan (1) New onset atrial fibrillation: Code(s): I48.91 - Unspecified atrial fibrillation Status: Acute Assessment and Plan: Heart rate is generally controlled, CHADS2-VASc score is at least 7, cont Eliquis 5 mg p.o. b.i.d. 06/28: Increase nebivolol to 10 mg daily per cardio recs, echo pending (2) Acute on chronic diastolic congestive heart failure: Code(s): I50.33 - Acute on chronic diastolic (congestive) heart failure Status: Acute Assessment and Plan: Her last echocardiogram showed diastolic dysfunction and an EF at the low end of normal. Repeat echo is pending. Continue diuresis with furosemide 40 mg IV q.12 hours, low sodium diet. Monitor I/O, daily weights, and electrolytes. Continue nebivolol and losartan. (3) Acute kidney injury: Code(s): N17.9 - Acute kidney failure, unspecified Status: Acute Assessment and Plan: suspect 2/2 volume overload, monitor cr while diuresing (4) Left leg cellulitis: Code(s): L03.116 - Cellulitis of left lower limb Status: Acute Assessment and Plan: cont doxycycline, started 06/27 (5) Cirrhosis: Code(s): K74.60 - Unspecified cirrhosis of liver Status: Acute Assessment and Plan: No significant fluid noted on abdominal exam. 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 Initiate sliding scale insulin, Accu-Cheks, and hypoglycemic protocol. A1c 6.7 Blood glucose reviewed 06/28 (7) Hypertension: Code(s): I10 - Essential (primary) hypertension Status: Acute Assessment and Plan: Blood pressures reviewed 06/28 Continue antihypertensives and monitor. Plan DVT prophylaxis with eliquis GI prophylaxis with PPI Code status full code Subjective Date/time seen: 06/28/22 07:52 Interval history: 82-year-old female with history of dementia, diabetes, heart failure is presenting from her nursing facility with shortness of breath, found to have new onset AFib and being treated for heart failure exacerbation as well as left leg cellulitis. No overnight events noted. No chest pain or shortness of breath. No nausea, vomiting or diarrhea. No fevers or chills. Review of Systems Review of Systems: 12 point review of systems was assessed and was negative except as noted in the HPI Exam Narrative: General: No acute distress, alert and oriented per baseline HEENT: Atraumatic, normocephalic, mucous membranes moist CV: Regular rate and rhythm, S1, S2 Lungs: Clear to auscultation bilaterally, no rales or crackles noted, no wheezes, good air entry Abdomen: Soft, nontender, nondistended Extremities: Normal to inspection Skin: large, splotchy, erythematous rash noted on LLE, some areas with petechiae, non blanching Psych: Euthymic, normal affect Objective Data Vital Signs Vital Signs: Vital Signs - 24 hr 06/27/22 08:35 06/27/22 08:44 06/27/22 09:02 Temperature 97.9 F Pulse Rate 84 71 79 Respiratory Rate 18 20 27 H Blood Pressure 102/88 102/88 108/55 L Pulse Oximetry 94 95 96 Oxygen Delivery Room Air Oxygen Flow Rate 06/27/22 09:30 06/27/22 10:50 06/27/22 10:47 Temperature Pulse Rate 80 83 Respiratory Rate 19 18 Blood Pressure 111/91 H Pulse Oximetry 97 96 96 Oxygen Delivery Nasal Cannula Oxygen Flow Rate 2 06/27/22 11:02 06/27/22 11:31 06/27/22 12:17 Temperature Pulse Rate 76 76 67 Respiratory Rate 17 15 18 Blood Pressure 102/62 117/48 L Pulse Oximetry 96 96 96 Oxygen Delivery Oxygen Flow Rate 06/27/22 12:46 06/27/22 14:02 06/27/22 14:47 Temperature Pulse Rate 74 77 71 Respiratory Rate 19 26 H 16 Blood Pressure 117/96 H 146/105 H 139/69 Pulse
[2022-06-28 08:32] LABS: Glucose Point of Care 136 mg/dl (65-105)
[2022-06-28] MEDS: PERFLUTREN LIPID MICROSPHERES 1.5 ML VIAL DILUTED TO 10 ML TOTAL VOLUME IV PUSH (08:45)
[2022-06-28] MEDS: SERTRALINE HCL 25 MG TABLET PO (09:01)
[2022-06-28] MEDS: FERROUS SULFATE 324 MG TABLET PO ×2 (09:01→17:24)
[2022-06-28] MEDS: DOXYCYCLINE HYCLATE 100 MG TABLET PO ×2 (09:01→21:03)
[2022-06-28] MEDS: FUROSEMIDE INJ 40 MG/4 ML VIAL IV PUSH ×2 (09:01→17:24)
[2022-06-28] MEDS: amLODIPine BESYLATE 5 MG TABLET 10 MG PO (09:01)
[2022-06-28] MEDS: APIXABAN 5 MG TABLET PO ×2 (09:01→21:03)
[2022-06-28] MEDS: THERAPEUTIC MULTIVITAMINS/MINERALS TAB (*BKC) 1 TABLET PO (09:01)
[2022-06-28] MEDS: NEBIVOLOL HCL 5 MG TABLET PO (09:01)
[2022-06-28] MEDS: MEMANTINE 10 MG TABLET PO ×2 (09:01→21:03)
[2022-06-28] MEDS: ATORVASTATIN 20 MG TABLET PO (09:01)
[2022-06-28] MEDS: DOCUSATE SODIUM 100 MG CAPSULE PO (09:01)
[2022-06-28] MEDS: PANTOPRAZOLE 40 MG TABLET PO ×2 (09:01→17:24)
[2022-06-28] MEDS: INSULIN GLARGINE (*BKC) 100 UNITS/ML 20 UNITS SUB-Q ×2 (09:02→20:59)
--- NOTE | 2022-06-28 09:13 | PM.PNCARD ---
Progress Note: A&P Assessment and Plan (1) New onset atrial fibrillation: Code(s): I48.91 - Unspecified atrial fibrillation Status: Acute Assessment and Plan: Heart rate generally seems to be controlled. Will start her on telemetry monitoring. 2D echocardiogram Doppler is pending She did have an echocardiogram recently however which showed low normal ejection fraction. She has a chads Vasc score of at least 7. Continue Eliquis. Will increase her nebivolol to 10 mg daily for rate control as well as blood pressure and heart failure (2) Hypertension associated with diabetes: Code(s): E11.59 - Type 2 diabetes mellitus with other circulatory complications; I15.2 - Hypertension secondary to endocrine disorders Status: Acute Assessment and Plan: Continue hydralazine, nebivolol, olmesartan (3) Hyperlipidemia associated with type 2 diabetes mellitus: Code(s): E11.69 - Type 2 diabetes mellitus with other specified complication; E78.5 - Hyperlipidemia, unspecified Status: Acute Assessment and Plan: Continue statin (4) Acute on chronic systolic and diastolic heart failure, NYHA class 3: Code(s): I50.43 - Acute on chronic combined systolic (congestive) and diastolic (congestive) heart failure Status: Acute Assessment and Plan: continue furosemide 40 mg IV q.12 hours. Low-salt diet. Echocardiogram was ordered. Intake and output as well as daily weights as well as daily BMP. Nebivolol will be continued but will increase today. On losartan also should be continued Plan Treatment of cellulitis be deferred to the hospitalist. Labs pending Subjective Date/time seen: 06/28/22 09:13 Interval history: 82-year-old with shortness of breath and atrial fibrillation Date of service 06/28/2022: Still short of breath a little bit better. Swelling has slightly improved. Cellulitis is unchanged. No chest pain Review of Systems Review of Systems: All systems reviewed & are unremarkable except as noted in HPI and below Constitutional: Constitutional: Denies chills and Denies excessive sweating Eyes: Eyes: Denies blurry vision ENT: Reports Normal hearing present Cardiovascular: Cardiovascular: Denies chest pain, Reports pedal edema, Reports leg edema, Reports dyspnea and Reports dyspnea on exertion Respiratory: Respiratory: Denies chest congestion, Reports dyspnea and Reports dyspnea on exertion Gastrointestinal: Gastrointestinal: Denies abdominal pain Genitourinary: Genitourinary: Denies hematuria Musculoskeletal: Musculoskeletal: Denies back pain and Denies myalgias Integumentary/Breasts: Skin/Breast: Reports erythema and Reports skin pain Neurologic: Reports Normal hearing present, Denies Abnormal speech present, Denies behavioral changes and Reports confusion Psychiatric: Psychiatric: Denies anxiety, Denies behavioral changes and Reports confusion Endocrine: Endocrine: Denies excessive sweating Hematologic/Lymphatic: Hematologic/Lymphatic: Denies easy bleeding Allergic/Immunologic: Allergic/Immunologic: Denies GI upset with certain foods Exam Narrative: Patient is awake alert appears stated age Const: General: comfortable, no acute distress and confusion Orientation/consciousness: confusion HENMT: Face/Nose/Sinus: Normal nares present Mouth: Yes moist mucous membranes Eyes: General: appearance normal, both eyes and all related structures Sclera: sclerae normal Neck: Neck: supple Carotids: no bruits Chest: Other: No reproducible chest wall pain to palpation Resp: Effort & Inspection: normal respiratory effort Auscultation: crackles and diminished lung sounds Cardio: Rate: regular rate Rhythm: abnormal rhythm irregularly irregular GI: Inspection: non-distended Auscultation: normal bowel sounds Skin: General skin exam: erythema (Redness noted in left lower extremity) Neuro: General: confusion Cranial nerves: Yes
[2022-06-28 10:34] LABS: Basophils Percent Auto 0.3 % (0.2-1.2); Eosinophils Percent Auto 0.2 % (0-4.4); Hematocrit 37.5 % (37.0-47.0); Hemoglobin 11.8 g/dL (12.0-15.0); Immature Granulocyte Absolute 0.02 K/mm3 (0.00-0.031); Immature Granulocyte Percent A 0.2 % (0-0.5); Immature Platelet Fraction Pct 4.8 % (0.9-11.2); Lymphocytes Absolute Auto 0.58 K/mm3 (0.9-3.2); Mean Corpuscular HGB Conc 31.5 g/dl (32-36); Mean Corpuscular Hemoglobin 27.4 pg (26-34); Mean Platelet Volume 10.4 fl (7.4-10.4); Monocytes Absolute Auto 0.7 K/mm3 (0.1-0.6); Monocytes Percent Auto 7.4 % (2.6-8.5); Neutrophils Absolute Auto 8.2 K/mm3 (1.3-6.7); Neutrophils Percent Auto 85.9 % (45.5-73.1); Platelet Count Result 92 k/mm3 (150-375); Red Blood Count 4.31 M/mm3 (4.2-5.4); Red Cell Distribution Width 18.2 % (11.5-14.5); White Blood Count 9.6 K/mm3 (4.5-10.0)
[2022-06-28 10:42] LABS: Alanine Aminotransferase 40 U/L (6-35); Alkaline Phosphatase 173 U/L (38-126); Anion Gap 9 mmol/L (8-16); Aspartate Amino Transferase 58 U/L (14-36); Bilirubin,Total 1.2 mg/dL (0.2-1.3); Blood Urea Nitrogen 31 mg/dL (7-17); Calcium 8.1 mg/dL (8.4-10.2); Carbon Dioxide 24 mmol/L (22-30); Chloride 108 mmol/L (98-107); Estimated Glomerular Filt Rate 36; Glucose 171 mg/dL (65-110); Potassium 3.8 mmol/L (3.4-5.0); Sodium 141 mmol/L (137-145)
[2022-06-28 12:02] LABS: Glucose Point of Care 185 mg/dl (65-105)
[2022-06-28 16:42] LABS: Glucose Point of Care 149 mg/dl (65-105)
[2022-06-28 21:08] LABS: Glucose Point of Care 167 mg/dl (65-105)
[2022-06-29] VITALS (11 sets, daily range): BP systolic 100–113; BP diastolic 60–83; PULSE 65–88; RESP 20–22; TEMP 35.8–36.2; O2SAT 92–94
[2022-06-29 06:06] LABS: Basophils Percent Auto 0.2 % (0.2-1.2); Eosinophils Absolute Auto 0.1 K/mm3 (0-0.3); Eosinophils Percent Auto 0.5 % (0-4.4); Hematocrit 38.9 % (37.0-47.0); Hemoglobin 12.2 g/dL (12.0-15.0); Immature Granulocyte Absolute 0.04 K/mm3 (0.00-0.031); Immature Granulocyte Percent A 0.4 % (0-0.5); Immature Platelet Fraction Pct 5.1 % (0.9-11.2); Lymphocytes Absolute Auto 1.07 K/mm3 (0.9-3.2); Lymphocytes Percent Auto 9.8 % (18.3-44.2); Mean Corpuscular HGB Conc 31.4 g/dl (32-36); Mean Corpuscular Hemoglobin 27.5 pg (26-34); Mean Corpuscular Volume 87.6 fl (80-100); Mean Platelet Volume 10.7 fl (7.4-10.4); Monocytes Percent Auto 8.7 % (2.6-8.5); Neutrophils Absolute Auto 8.8 K/mm3 (1.3-6.7); Neutrophils Percent Auto 80.4 % (45.5-73.1); Platelet Count Result 107 k/mm3 (150-375); Red Blood Count 4.44 M/mm3 (4.2-5.4); Red Cell Distribution Width 18.2 % (11.5-14.5)
[2022-06-29 06:17] LABS: Alanine Aminotransferase 39 U/L (6-35); Albumin Level 3.2 g/dL (3.5-5.1); Alkaline Phosphatase 169 U/L (38-126); Anion Gap 8 mmol/L (8-16); Aspartate Amino Transferase 58 U/L (14-36); Bilirubin,Total 1.2 mg/dL (0.2-1.3); Blood Urea Nitrogen 37 mg/dL (7-17); Calcium 8.2 mg/dL (8.4-10.2); Carbon Dioxide 26 mmol/L (22-30); Chloride 108 mmol/L (98-107); Estimated Glomerular Filt Rate 33; Glucose 99 mg/dL (65-110); Potassium 3.7 mmol/L (3.4-5.0); Sodium 142 mmol/L (137-145)
[2022-06-29 08:04] LABS: Glucose Point of Care 96 mg/dl (65-105)
[2022-06-29] MEDS: INSULIN GLARGINE (*BKC) 100 UNITS/ML 20 UNITS SUB-Q ×2 (08:16→21:06)
[2022-06-29] MEDS: NEBIVOLOL HCL 5 MG TABLET 10 MG PO (08:20)
[2022-06-29] MEDS: DOXYCYCLINE HYCLATE 100 MG TABLET PO ×2 (08:20→21:02)
[2022-06-29] MEDS: amLODIPine BESYLATE 5 MG TABLET 10 MG PO (08:20)
[2022-06-29] MEDS: DOCUSATE SODIUM 100 MG CAPSULE PO (08:21)
[2022-06-29] MEDS: FERROUS SULFATE 324 MG TABLET PO ×2 (08:21→17:52)
[2022-06-29] MEDS: APIXABAN 5 MG TABLET PO ×2 (08:21→21:02)
[2022-06-29] MEDS: ATORVASTATIN 20 MG TABLET PO (08:21)
[2022-06-29] MEDS: FUROSEMIDE INJ 40 MG/4 ML VIAL IV PUSH ×3 (08:21→17:51)
[2022-06-29] MEDS: THERAPEUTIC MULTIVITAMINS/MINERALS TAB (*BKC) 1 TABLET PO (08:21)
[2022-06-29] MEDS: MEMANTINE 10 MG TABLET PO ×2 (08:21→21:02)
[2022-06-29] MEDS: PANTOPRAZOLE 40 MG TABLET PO ×2 (08:21→17:51)
--- NOTE | 2022-06-29 09:16 | PM.PNCARD ---
Progress Note: A&P Assessment and Plan (1) New onset atrial fibrillation: Code(s): I48.91 - Unspecified atrial fibrillation Status: Acute Assessment and Plan: Heart rate generally seems to be controlled. Continue nebivolol and anticoagulation (2) Hypertension associated with diabetes: Code(s): E11.59 - Type 2 diabetes mellitus with other circulatory complications; I15.2 - Hypertension secondary to endocrine disorders Status: Acute Assessment and Plan: Continue hydralazine, nebivolol, olmesartan (3) Hyperlipidemia associated with type 2 diabetes mellitus: Code(s): E11.69 - Type 2 diabetes mellitus with other specified complication; E78.5 - Hyperlipidemia, unspecified Status: Acute Assessment and Plan: Continue statin (4) Acute on chronic systolic and diastolic heart failure, NYHA class 3: Code(s): I50.43 - Acute on chronic combined systolic (congestive) and diastolic (congestive) heart failure Status: Acute Assessment and Plan: continue furosemide 40 mg IV q.12 hours. Low-salt diet. She is more short of breath today. Will give her an additional dose of furosemide 40 mg IV x1 now Plan Treatment of cellulitis be deferred to the hospitalist. Labs pending Subjective Date/time seen: 06/29/22 09:16 Interval history: 82-year-old with shortness of breath and atrial fibrillation Date of service 06/28/2022: Still short of breath a little bit better. Swelling has slightly improved. Cellulitis is unchanged. No chest pain Date of service 06/29/2022: She feels worse today. She is more short of breath. Still swollen. Cellulitis has improved. No chest pain Review of Systems Review of Systems: All systems reviewed & are unremarkable except as noted in HPI and below Constitutional: Constitutional: Denies chills and Denies excessive sweating Eyes: Eyes: Denies blurry vision ENT: Reports Normal hearing present Cardiovascular: Cardiovascular: Denies chest pain, Reports pedal edema, Reports leg edema, Reports dyspnea and Reports dyspnea on exertion Respiratory: Respiratory: Denies chest congestion, Reports dyspnea and Reports dyspnea on exertion Gastrointestinal: Gastrointestinal: Denies abdominal pain Genitourinary: Genitourinary: Denies hematuria Musculoskeletal: Musculoskeletal: Denies back pain and Denies myalgias Integumentary/Breasts: Skin/Breast: Reports erythema and Reports skin pain Neurologic: Reports Normal hearing present, Denies Abnormal speech present, Denies behavioral changes and Reports confusion Psychiatric: Psychiatric: Denies anxiety, Denies behavioral changes and Reports confusion Endocrine: Endocrine: Denies excessive sweating Hematologic/Lymphatic: Hematologic/Lymphatic: Denies easy bleeding Allergic/Immunologic: Allergic/Immunologic: Denies GI upset with certain foods Exam Narrative: Patient is awake alert appears stated age Const: General: comfortable, no acute distress and confusion Orientation/consciousness: confusion HENMT: Face/Nose/Sinus: Normal nares present Mouth: Yes moist mucous membranes Eyes: General: appearance normal, both eyes and all related structures Sclera: sclerae normal Neck: Neck: supple Carotids: no bruits Chest: Other: No reproducible chest wall pain to palpation Resp: Effort & Inspection: normal respiratory effort Auscultation: crackles and diminished lung sounds Cardio: Rate: regular rate Rhythm: abnormal rhythm irregularly irregular GI: Inspection: non-distended Auscultation: normal bowel sounds Skin: General skin exam: erythema (Redness noted in left lower extremity) Neuro: General: confusion Cranial nerves: Yes Normal hearing present Speech: normal speech and No Abnormal speech present Sensory Exam: normal sensation Extrem: General: edema Other: 1-2 +bilateral extremity edema Psych: Mental Status: mental status grossly normal Object
[2022-06-29 11:33] LABS: Glucose Point of Care 161 mg/dl (65-105)
--- NOTE | 2022-06-29 14:34 | PM.IMPN ---
Progress Note: A&P Assessment and Plan (1) New onset atrial fibrillation: Code(s): I48.91 - Unspecified atrial fibrillation Status: Acute Assessment and Plan: Heart rate is generally controlled, CHADS2-VASc score is at least 7, cont Eliquis 5 mg p.o. b.i.d. 06/28: Increase nebivolol to 10 mg daily per cardio recs, echo pending 06/29: Echo 06/28 showed EF 50-55%, indeterminate diastolic function, mild valvular disease and moderate pulmonary hypertension, increased diuresis with Lasix 40 mg t.i.d. today (2) Acute on chronic diastolic congestive heart failure: Code(s): I50.33 - Acute on chronic diastolic (congestive) heart failure Status: Acute Assessment and Plan: Her last echocardiogram showed diastolic dysfunction and an EF at the low end of normal. Repeat echo as above. Continue diuresis with furosemide 40 mg IV q.12 hours, low sodium diet. Monitor I/O, daily weights, and electrolytes. Continue nebivolol and losartan. See above for details (3) Acute kidney injury: Code(s): N17.9 - Acute kidney failure, unspecified Status: Acute Assessment and Plan: suspect 2/2 volume overload, monitor cr while diuresing Worsened a bit today, anticipate a little worse tomorrow with the increased Lasix Consider nephrology consultation (4) Left leg cellulitis: Code(s): L03.116 - Cellulitis of left lower limb Status: Acute Assessment and Plan: cont doxycycline, started 06/27 Improving (5) Cirrhosis: Code(s): K74.60 - Unspecified cirrhosis of liver Status: Acute Assessment and Plan: No significant fluid noted on abdominal exam. Trend LFTs (6) Insulin dependent type 2 diabetes mellitus: Code(s): E11.9 - Type 2 diabetes mellitus without complications; Z79.4 - correction (current) use of insulin Status: Acute Assessment and Plan: Continue basal insulin. Initiate sliding scale insulin, Accu-Cheks, and hypoglycemic protocol. A1c 6.7 Blood glucose reviewed 06/29 (7) Hypertension: Code(s): I10 - Essential (primary) hypertension Status: Acute Assessment and Plan: Blood pressures reviewed 06/29 Continue antihypertensives and monitor. Plan DVT prophylaxis with eliquis GI prophylaxis with PPI Code status full code Subjective Date/time seen: 06/29/22 14:34 Interval history: 82-year-old female with history of dementia, diabetes, heart failure is presenting from her nursing facility with shortness of breath, found to have new onset AFib and being treated for heart failure exacerbation as well as left leg cellulitis. No overnight events noted. No chest pain. No nausea, vomiting or diarrhea. No fevers or chills. Still with SOB, a little worse today. Stable on 2L nc. Review of Systems Review of Systems: 12 point review of systems was assessed and was negative except as noted in the HPI Exam Narrative: General: No acute distress, alert and oriented per baseline HEENT: Atraumatic, normocephalic, mucous membranes moist CV: Irregularly irregular, S1, S2 Lungs: scattered crackles, no wheezes, coarse BS throughout Abdomen: Soft, nontender, nondistended Extremities: Normal to inspection Skin: improving, splotchy, erythematous rash noted on LLE, some areas with petechiae, non blanching Psych: Euthymic, normal affect Objective Data Vital Signs Vital Signs: Vital Signs - 24 hr 06/28/22 16:00 06/28/22 20:00 06/28/22 22:00 Temperature 97.5 F L Pulse Rate 69 69 69 Respiratory Rate 18 18 Blood Pressure 148/55 H Pulse Oximetry 93 96 Oxygen Delivery Nasal Cannula Oxygen Flow Rate 2 06/28/22 20:00 06/29/22 00:00 06/29/22 04:00 Temperature Pulse Rate 69 74 66 Respiratory Rate Blood Pressure Pulse Oximetry Oxygen Delivery Oxygen Flow Rate 06/29/22 05:08 06/29/22 06:00 06/29/22 08:30 Temperature 96.4 F L Pulse R
[2022-06-29 16:40] LABS: Glucose Point of Care 186 mg/dl (65-105)
[2022-06-29 21:35] LABS: Glucose Point of Care 167 mg/dl (65-105)
[2022-06-30] VITALS (25 sets, daily range): BP systolic 102–120; BP diastolic 46–79; PULSE 58–93; RESP 20–30; TEMP 35.6–36.2; O2SAT 90–99; BMI 33.5
[2022-06-30 06:07] LABS: Basophils Percent Auto 0.2 % (0.2-1.2); Eosinophils Percent Auto 0.2 % (0-4.4); Hematocrit 38.2 % (37.0-47.0); Hemoglobin 11.8 g/dL (12.0-15.0); Immature Granulocyte Absolute 0.04 K/mm3 (0.00-0.031); Immature Granulocyte Percent A 0.4 % (0-0.5); Immature Platelet Fraction Pct 4.7 % (0.9-11.2); Lymphocytes Percent Auto 5.7 % (18.3-44.2); Mean Corpuscular HGB Conc 30.9 g/dl (32-36); Mean Corpuscular Hemoglobin 27.1 pg (26-34); Mean Corpuscular Volume 87.6 fl (80-100); Mean Platelet Volume 9.7 fl (7.4-10.4); Monocytes Absolute Auto 0.9 K/mm3 (0.1-0.6); Monocytes Percent Auto 8.7 % (2.6-8.5); Neutrophils Absolute Auto 8.9 K/mm3 (1.3-6.7); Neutrophils Percent Auto 84.8 % (45.5-73.1); Platelet Count Result 108 k/mm3 (150-375); Red Blood Count 4.36 M/mm3 (4.2-5.4); Red Cell Distribution Width 18.1 % (11.5-14.5); White Blood Count 10.5 K/mm3 (4.5-10.0)
[2022-06-30 06:22] LABS: Alanine Aminotransferase 41 U/L (6-35); Albumin Level 3.1 g/dL (3.5-5.1); Alkaline Phosphatase 176 U/L (38-126); Anion Gap 5 mmol/L (8-16); Aspartate Amino Transferase 72 U/L (14-36); Blood Urea Nitrogen 40 mg/dL (7-17); Calcium 8.2 mg/dL (8.4-10.2); Carbon Dioxide 28 mmol/L (22-30); Chloride 110 mmol/L (98-107); Estimated Glomerular Filt Rate 29; Glucose 68 mg/dL (65-110); Potassium 3.6 mmol/L (3.4-5.0); Sodium 143 mmol/L (137-145)
--- NOTE | 2022-06-30 07:39 | ECG_ITS ---
Measurements Intervals [place] Rate: 67 P: [place]: 0 QRS: -14 QRSD: 186 T: 163 QT: 461 QTc: 490 Interpretive Statements ATRIAL FIBRILLATION LEFT BUNDLE BRANCH BLOCK BASELINE ARTIFACT- I, II, III, AVR, AVL, AVF, V3, V6 ABNORMAL ECG COMPARED TO ECG 06/27/2022 08:42:48 NO SIGNIFICANT CHANGES Electronically Signed On 06-30-2022 8:08:20 CDT by Zack Ortiz D.O.
--- NOTE | 2022-06-30 07:40 | PM.IMPN ---
Progress Note: A&P Assessment and Plan (1) Pneumonia: Code(s): J18.9 - Pneumonia, unspecified organism Status: Acute Assessment and Plan: 06/30: CXR showed severe, diffuse lung disease, with pulm edema, pleural effusions, and bilateral pneumonia, started on broad spectrum abx, vanc + meropenem + levaquin, consult to pulm placed and pending, CT chest also showed pleural effusions, consider mucolytics, will defer management to pulm, check COVID + flu + RSV pending (2) New onset atrial fibrillation: Code(s): I48.91 - Unspecified atrial fibrillation Status: Acute Assessment and Plan: Heart rate is generally controlled, CHADS2-VASc score is at least 7, cont Eliquis 5 mg p.o. b.i.d. 06/28: Increase nebivolol to 10 mg daily per cardio recs, echo pending 06/29: Echo 06/28 showed EF 50-55%, indeterminate diastolic function, mild valvular disease and moderate pulmonary hypertension, increased diuresis with Lasix 40 mg t.i.d. today 06/30: Rate controlled (3) Acute on chronic diastolic congestive heart failure: Code(s): I50.33 - Acute on chronic diastolic (congestive) heart failure Status: Acute Assessment and Plan: Her last echocardiogram showed diastolic dysfunction and an EF at the low end of normal. Repeat echo as above. Continue diuresis with furosemide 40 mg IV q.12 hours, low sodium diet. Monitor I/O, daily weights, and electrolytes. Continue nebivolol and losartan. Diuresis increased 06/29 and creat worsened, sob worsened, workup pending 06/30: Check CT chest, nebs, CXR, ABG Update: CXR showed multifocal pna, will initiate broad spectrum abx with vanc + meropenem + levaquin (4) Acute kidney injury: Code(s): N17.9 - Acute kidney failure, unspecified Status: Acute Assessment and Plan: suspect 2/2 volume overload, monitor cr while diuresing Worsened a bit today, anticipate a little worse tomorrow with the increased Lasix Creat worsened again 06/30, consult nephrology due to volume overload with worsening creat, concern for cardiorenal syndrome? (5) Left leg cellulitis: Code(s): L03.116 - Cellulitis of left lower limb Status: Acute Assessment and Plan: cont doxycycline, started 06/27 Improving 06/30: abx escalated for pna 06/30 to vanc + meropenem + levaquin (6) Cirrhosis: Code(s): K74.60 - Unspecified cirrhosis of liver Status: Acute Assessment and Plan: No significant fluid noted on abdominal exam Trend LFTs, worsening Check CT abd + pelvis 06/30: worsening, likely 2/2 [id number] syndrome? worsening congestion from cirrhosis and heart failure? 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 Initiate sliding scale insulin, Accu-Cheks, and hypoglycemic protocol. A1c 6.7 Blood glucose reviewed 06/30 (8) Hypertension: Code(s): I10 - Essential (primary) hypertension Status: Acute Assessment and Plan: Blood pressures reviewed 06/30 Continue antihypertensives and monitor. Plan DVT prophylaxis with eliquis GI prophylaxis with PPI Code status full code Subjective Date/time seen: 06/30/22 07:40 Interval history: 82-year-old female with history of dementia, diabetes, heart failure is presenting from her nursing facility with shortness of breath, found to have new onset AFib and being treated for heart failure exacerbation as well as left leg cellulitis. Quite sob overnight, up to 3L, very uncomfortable and sob. Review of Systems Review of Systems: 12 point review of systems was assessed and was negative except as noted in the HPI Exam Narrative: General: Resting comfortably on venturi face mask, 6L HEENT: Atraumatic, normocephalic, mucous membranes mois
[2022-06-30 07:55] LABS: Glucose Point of Care 70 mg/dl (65-105)
[2022-06-30] MEDS: ALBUTEROL SULFATE NEB 2.5 MG/3 ML INH 1.25 MG INHALATION (08:07)
[2022-06-30] MEDS: IPRATROPIUM BR 0.02% INH SOLN 0.5 MG/2.5 ML VIAL INHALATION (08:08)
[2022-06-30 08:26] LABS: Lactic Acid Reflex 0.9 mmol/L (0.7-2.0)
[2022-06-30 08:29] LABS: CRP 8.5 mg/dL (<1.0)
[2022-06-30] MEDS: FUROSEMIDE INJ 40 MG/4 ML VIAL IV PUSH ×2 (08:29→15:55)
--- NOTE | 2022-06-30 08:32 | PCOTNOTE ---
Per RN, Pt is going to be transferred to IMU due to breathing issues and is not appropriate at this time for OT treatment. Will continue per POC duration/frequency tomorrow.
[2022-06-30 08:35] LABS: D Dimer 2.18 ug/mL (<0.48)
[2022-06-30 08:38] LABS: Troponin I 0.014 ng/mL (0.000-0.034)
[2022-06-30 08:59] LABS: Procalcitonin 0.5 ng/mL
--- NOTE | 2022-06-30 09:05 | PC.NURSE ---
This patient, Marilyn Baker, was transferred to IMU 232 on 06/30/22 at 0900. Personal belongings sent with patient. Report given to Latrice MCWILLIAMS. Appropriate documentation sent with patient.
[2022-06-30 09:47] LABS: Alveolar/Arterial O2 Gradient 198.1 mmHg; Base Excess ABG -1.4 mEq/l (+/-2.0); HCO3 ABG 25.3 mEq/l (22.0-26.0); Oxygen Content ABG 17.4 %vol (16.0-22.0); PCO2 ABG 50.5 mmHg (35.0-45.0); PO2 ABG 58.1 mmHg (80.0-100.0); PO2 FiO2 Ratio Arterial Blood 1.32 %; Total Hemoglobin 14.2 g/dL (12.0-18.0); pH ABG 7.318 (7.350-7.450)
[2022-06-30 09:49] LABS: Oxygen Saturation ABG 87.7 % (95.0-100.0)
[2022-06-30 09:50] LABS: Device VENTURI MASK; Modified Allen's Test Pass; Oxyhemoglobin 87.3 % THb (90.0-100.0); Site Drawn RIGHT RADIAL
[2022-06-30 09:51] LABS: Fractional Inspired Oxygen 30 %
--- NOTE | 2022-06-30 09:53 | PCPTNOTE ---
The patient treatment was not able to be completed due to patient's change in medical status. Patient transferred to IMU. Will follow up with physician to continue PT.
--- NOTE | 2022-06-30 10:14 | PM.CNPUL ---
Assessment and Plan Assessment and plan (1) Acute on chronic systolic and diastolic heart failure, NYHA class 3: Code(s): I50.43 - Acute on chronic combined systolic (congestive) and diastolic (congestive) heart failure Status: Acute (2) Atrial fibrillation: Code(s): I48.91 - Unspecified atrial fibrillation Status: Acute (3) Pulmonary edema: Code(s): J81.1 - Chronic pulmonary edema Status: Acute Assessment and Plan: This 82-year-old female with known history of congestive heart failure presented with progressively increasing shortness of breath, bilateral pulmonary infiltrates, bilateral pleural effusions on chest CT, progression of bilateral pulmonary infiltrates with development of hypoxemic hypercapnic respiratory failure for which she was recently on noninvasive ventilatory support via CPAP of 5 cm water pressure. On physical exam she is severely short of breath and has diffuse crackles bilaterally. The patient's presentation in conjunction with diagnostic studies is more consistent with severe pulmonary edema rather than pneumonia. Of note the patient has received antibiotics since presentation to the emergency room and currently is on broad-spectrum antibiotics. She has been negative for viral infections. Plan: The patient was placed on BiPAP support 01/14, with repeat ABGs in about an hour. In view of extensive pulmonary edema and non response to treatment with diuretics patient may need intubation and mechanical ventilation. At this point I would hold vancomycin and meropenem and continue with just levofloxacin. Screen patient for MRSA. (4) Acute kidney injury: Code(s): N17.9 - Acute kidney failure, unspecified Status: Acute (5) Insulin dependent type 2 diabetes mellitus: Code(s): E11.9 - Type 2 diabetes mellitus without complications; Z79.4 - exterminator helper termite (current) use of insulin Status: Acute (6) BRO (obstructive sleep apnea): Code(s): G47.33 - Obstructive sleep apnea (adult) (pediatric) Status: Acute History of Present Illness History of Present Illness Consult date: 06/30/22 Chief complaint: CHF Exacerbation/Cellulitis/New Onset A Fib Narrative: This 82-year-old female presented with increasing shortness of breath of several days duration 4 days ago. The patient has known history of dementia, type 2 diabetes mellitus, hypertension, hyperlipidemia, congestive heart failure thrombocytopenia. She has been treated for congestive heart failure. In fact she was evaluated by Cardiology Services and has been on treatment for atrial fibrillation and pulmonary edema. I was asked to see the patient for pneumonia. The patient currently is on noninvasive ventilatory support unable to provide details of recent events. Patient lives in a alf. Reportedly she developed shortness of breath initially on exertion which has progressed to severe shortness of breath at rest. She had no fever chills hemoptysis night sweats chest pain. When evaluated in the emergency room she was afebrile, hemodynamically stable and in atrial fibrillation with low heart rate. She had nl WBC, low platelet count, elevated creatinine, marked elevation of BNP. Chest x-ray showed cardiomegaly and pulmonary edema. She had no evidence of DVT on lower extremity venous study. Initially she was treated with ceftriaxone Zithromax and doxycycline and IV Lasix. Recent x-ray showed progression of bilateral infiltrates and small pleural effusions. Chest CT without contrast showed bilateral pulmonary infiltrates in a symmetrical fashion with small pleural effusions and cardiomegaly. Patient is currently on vancomycin IV meropenem and levofloxacin for possible pneumonia. Her white cell count is borderline normal. Recent CRP was not significantly elevated. Review of Systems Review of Systems: All systems reviewed & are unremarkable except as noted in HPI and below (HPI and below) ROS juan
[2022-06-30] MEDS: NEBIVOLOL HCL 5 MG TABLET 10 MG PO (10:30)
[2022-06-30] MEDS: amLODIPine BESYLATE 5 MG TABLET 10 MG PO (10:31)
[2022-06-30] MEDS: DOCUSATE SODIUM 100 MG CAPSULE PO (10:31)
[2022-06-30] MEDS: THERAPEUTIC MULTIVITAMINS/MINERALS TAB (*BKC) 1 TABLET PO (10:31)
[2022-06-30] MEDS: FERROUS SULFATE 324 MG TABLET PO ×2 (10:31→16:01)
[2022-06-30] MEDS: PANTOPRAZOLE 40 MG TABLET PO ×2 (10:32→16:01)
[2022-06-30] MEDS: ATORVASTATIN 20 MG TABLET PO (10:32)
[2022-06-30] MEDS: APIXABAN 5 MG TABLET PO ×2 (10:32→20:56)
[2022-06-30] MEDS: MEMANTINE 10 MG TABLET PO ×2 (10:32→20:57)
[2022-06-30 11:11] LABS: Glucose Point of Care 67 mg/dl (65-105)
[2022-06-30] MEDS: BENZONATATE 100 MG CAPSULE 200 MG PO ×3 (11:14→16:00)
[2022-06-30] MEDS: guaiFENesin 600 MG/DEXTROMETHORPHAN 30 MG SR TAB 12 HR 1 TAB PO ×2 (11:14→20:56)
--- NOTE | 2022-06-30 11:23 | P.CONNP_ITS ---
Assessment and Plan Assessment and plan (1) Acute kidney injury: Code(s): N17.9 - Acute kidney failure, unspecified Status: Acute Assessment and Plan: * presumably due to CHF and necessity of diuresis and possibly relative hypotension * concurrent ARB therapy may have also played a role * normal creatinine at baseline (about a month ago) * admitted with creatinine of 1.4mg/dl * check urine studies (electrolytes, eosinophils...etc) and renal ultrasound * in-spite of rising creatinine, agree with diuresis as tolerated * follow repeat labs and UOP (2) Acute respiratory failure: Code(s): J96.00 - Acute respiratory failure, unspecified whether with hypoxia or hypercapnia Status: Acute Assessment and Plan: * due to pulmonary edema/CHF with the possibility of pneumonia * CXR and CT of chest results noted * Pulmonary following * continue diuresis, supplemental oxygen, PRN BiPAP, and antibiotics * complicated by BRO * continue supportive therapy (3) Acute on chronic systolic and diastolic heart failure, NYHA class 3: Code(s): I50.43 - Acute on chronic combined systolic (congestive) and diastolic (congesti ve) heart failure Status: Acute Assessment and Plan: * Echo with EF 50 55% with moderate pulmonary hypertension * continue IV lasix * follow I/Os, daily weights, and respiratory status * Cardiology following (4) Atrial fibrillation: Code(s): I48.91 - Unspecified atrial fibrillation Status: Chronic Assessment and Plan: * contine rate control strategy * on anticoagulation (5) Insulin dependent type 2 diabetes mellitus: Code(s): E11.9 - Type 2 diabetes mellitus without complications; Z79.4 - assisted (current) use of insulin Status: Chronic Assessment and Plan: * follow accuchecks * glycemic control per hospitalists I will continue follow the patient with you while she remains hospitalized make further recommendations as deemed necessary. Thank you for allowing me to participate in care this patient. History of Present Illness Reason for Consult Consult date: 06/30/22 Reason for consult: acute renal failure Chief Complaint Chief complaint: CHF Exacerbation/Cellulitis/New Onset A Fib History of Present Illness Narrative: The patient is an 82-year-old female with a past medical history as outlined below who presented to [facility] Emergency room via EMS from her nursing facility for further evaluation of shortness of breath. Over the last several days prior to her presentation to the emergency room, she has developed shortness of breath both at rest as well as with exertion that seems to be progressively getting worse. Other associated symptoms included orthopnea, a nonproductive cough, as well as erythema at her left lower extremity. No reported fevers, chills, diaphoresis, chest pain, palpitations, nausea, vomiting, or leg pain. As the symptoms seem to be progressively getting worse in general along with the patient subjectively feeling worse, she was transferred to the ER for further assessment Workup and evaluation emergency room demonstrated the patient to be hemodynamically stable but it and mild respiratory distress. EKG demonstrated the patient to be in atrial fibrillation but she seems to be rate controlled. Routine blood tests were significant for mild anemia, thrombocytopenia (which is a chronic issue for the patient) and elevated BUN and creatinine above her baseline. Her proBNP was elevated at 7570 with a chest x-ray showing c ardiomegaly as well as pulmonary edema w
--- NOTE | 2022-06-30 11:23 | PM.CNNEP ---
Assessment and Plan Assessment and plan (1) Acute kidney injury: Code(s): N17.9 - Acute kidney failure, unspecified Status: Acute Assessment and Plan: presumably due to CHF and necessity of diuresis and possibly relative hypotension concurrent ARB therapy may have also played a role normal creatinine at baseline (about a month ago) admitted with creatinine of 1.4mg/dl check urine studies (electrolytes, eosinophils...etc) and renal ultrasound in-spite of rising creatinine, agree with diuresis as tolerated follow repeat labs and UOP (2) Acute respiratory failure: Code(s): J96.00 - Acute respiratory failure, unspecified whether with hypoxia or hypercapnia Status: Acute Assessment and Plan: due to pulmonary edema/CHF with the possibility of pneumonia CXR and CT of chest results noted Pulmonary following continue diuresis, supplemental oxygen, PRN BiPAP, and antibiotics complicated by BRO continue supportive therapy (3) Acute on chronic systolic and diastolic heart failure, NYHA class 3: Code(s): I50.43 - Acute on chronic combined systolic (congestive) and diastolic (congestive) heart failure Status: Acute Assessment and Plan: Echo with EF 50 55% with moderate pulmonary hypertension continue IV lasix follow I/Os, daily weights, and respiratory status Cardiology following (4) Atrial fibrillation: Code(s): I48.91 - Unspecified atrial fibrillation Status: Chronic Assessment and Plan: contine rate control strategy on anticoagulation (5) Insulin dependent type 2 diabetes mellitus: Code(s): E11.9 - Type 2 diabetes mellitus without complications; Z79.4 - longterm (current) use of insulin Status: Chronic Assessment and Plan: follow accuchecks glycemic control per hospitalists I will continue follow the patient with you while she remains hospitalized make further recommendations as deemed necessary. Thank you for allowing me to participate in care this patient. History of Present Illness Reason for Consult Consult date: 06/30/22 Reason for consult: acute renal failure Chief Complaint Chief complaint: CHF Exacerbation/Cellulitis/New Onset A Fib History of Present Illness Narrative: The patient is an 82-year-old female with a past medical history as outlined below who presented to [facility] Emergency room via EMS from her nursing facility for further evaluation of shortness of breath. Over the last several days prior to her presentation to the emergency room, she has developed shortness of breath both at rest as well as with exertion that seems to be progressively getting worse. Other associated symptoms included orthopnea, a nonproductive cough, as well as erythema at her left lower extremity. No reported fevers, chills, diaphoresis, chest pain, palpitations, nausea, vomiting, or leg pain. As the symptoms seem to be progressively getting worse in general along with the patient subjectively feeling worse, she was transferred to the ER for further assessment Workup and evaluation emergency room demonstrated the patient to be hemodynamically stable but it and mild respiratory distress. EKG demonstrated the patient to be in atrial fibrillation but she seems to be rate controlled. Routine blood tests were significant for mild anemia, thrombocytopenia (which is a chronic issue for the patient) and elevated BUN and creatinine above her baseline. Her proBNP was elevated at 7570 with a chest x-ray showing cardiomegaly as well as pulmonary edema with a possibility of pneumonia as well. Given her respiratory distress, appropriate cultures were obtained and she was started on broad-spectrum IV antibiotic therapy as well as IV diuretics on the assumption of congestive heart failure as well. She was subsequently admitted to the hospital for further evaluation and therapy. Since her admission, her respiratory
[2022-06-30 11:26] LABS: Glucose Point of Care 98 mg/dl (65-105)
[2022-06-30 11:29] LABS: Alveolar/Arterial O2 Gradient 94.1 mmHg; Base Excess ABG -2.7 mEq/l (+/-2.0); Fractional Inspired Oxygen 30 %; HCO3 ABG 23.1 mEq/l (22.0-26.0); Modified Allen's Test Pass; Oxygen Content ABG 15.5 %vol (16.0-22.0); Oxygen Saturation ABG 92.4 % (95.0-100.0); Oxyhemoglobin 91.7 % THb (90.0-100.0); PCO2 ABG 44.2 mmHg (35.0-45.0); PO2 ABG 67.9 mmHg (80.0-100.0); PO2 FiO2 Ratio Arterial Blood 2.26 %; Site Drawn RIGHT RADIAL; pH ABG 7.336 (7.350-7.450)
[2022-06-30 11:30] LABS: Device NON-INVASIVE VENT; Non-Invasive Expiratory Pressure 6 CMH2O; Non-Invasive Inspiratory Pressure 12 CMH2O; Non-Invasive Vent Rate 14 /MIN
[2022-06-30 11:52] LABS: Influenza A QL RT-PCR Negative (Negative); Influenza B QL RT-PCR Negative (Negative); RSV RNA, RT-PCR Negative (Negative); SARS-CoV-2 RNA PCR Negative (Negative)
[2022-06-30] MEDS: MEROPENEM 1 GM in SODIUM CHLORIDE 0.9% IV 100 ML 200 ML IVPB ×2 (12:26→21:33)
[2022-06-30 12:30] LABS: Glucose Point of Care 115 mg/dl (65-105)
[2022-06-30] MEDS: VANCOMYCIN 1,250 MG/NS 250 ML 1,250 MG/250 ML BAG 166.67 MG IVPB (13:55)
--- NOTE | 2022-06-30 15:38 | PM.PNCARD ---
Progress Note: A&P Assessment and Plan (1) Acute on chronic systolic and diastolic heart failure, NYHA class 3: Code(s): I50.43 - Acute on chronic combined systolic (congestive) and diastolic (congestive) heart failure Status: Acute Assessment and Plan: continue furosemide 40 mg IV q.12 hours give additional IV Lasix if BP stable. Accurate input and output, daily weight.. Low-salt diet. X-ray and CT appear to be consistent with pneumonia in addition to heart failure. Continue bronchodilator, O2 supplementation, antibiotics. Appreciate pulmonology involvement. Will give her an additional dose of furosemide 40 mg IV x1 now. Monitor renal function electrolytes and BP closely. Cautious given acute on chronic renal insufficiency. EF 50 55%, moderate pulmonary hypertension RVSP 53 mm Hg. Prognosis is guarded. Patient is very ill. DNR status noted. (2) New onset atrial fibrillation: Code(s): I48.91 - Unspecified atrial fibrillation Status: Acute Assessment and Plan: Heart rate controlled on nebivolol 10 mg daily. Continue systemic anticoagulation with Eliquis 5 mg twice daily for embolic stroke risk reduction. (3) Hypertension associated with diabetes: Code(s): E11.59 - Type 2 diabetes mellitus with other circulatory complications; I15.2 - Hypertension secondary to endocrine disorders Status: Acute Assessment and Plan: Hydralazine and olmesartan discontinued. She remains on amlodipine and nebivolol. Monitor BP closely. Would reduce amlodipine 5 mg daily or hold if any lower (4) Acute kidney injury: Code(s): N17.9 - Acute kidney failure, unspecified Status: Acute Assessment and Plan: Creatinine increased to 1.7. Acute on chronic renal insufficiency. Need to monitor volume status closely with diuresis and avoid hypotension. Monitor BMP (5) Hyperlipidemia associated with type 2 diabetes mellitus: Code(s): E11.69 - Type 2 diabetes mellitus with other specified complication; E78.5 - Hyperlipidemia, unspecified Status: Acute Assessment and Plan: Continue statin Plan Treatment of cellulitis be deferred to the hospitalist. Labs pending Subjective Date/time seen: Date of service: 06/30/22 15:38 Interval history: 82-year-old with shortness of breath and atrial fibrillation Date of service 06/28/2022: Still short of breath a little bit better. Swelling has slightly improved. Cellulitis is unchanged. No chest pain Date of service 06/29/2022: She feels worse today. She is more short of breath. Still swollen. Cellulitis has improved. No chest pain Date of service 06/30/2022: More short of breath today transferred to IMU transition from CPAP to BiPAP which was helping her. She continues to have edema of. Denies chest pain or palpitations. Remains in AFib heart rate controlled. This morning x-ray worse pulmonary edema suspicion for bilateral pneumonia. Pulmonology consulted. COVID, flu, RSV negative. Review of Systems Review of Systems: More short of breath, fatigue, increased work of breathing All systems reviewed & are unremarkable except as noted in HPI and below Constitutional: Constitutional: Denies chills and Denies excessive sweating Eyes: Eyes: Denies blurry vision ENT: Reports Normal hearing present Cardiovascular: Cardiovascular: Denies chest pain, Reports pedal edema, Reports leg edema, Reports dyspnea and Reports dyspnea on exertion Respiratory: Respiratory: Denies chest congestion, Reports dyspnea and Reports dyspnea on exertion Gastrointestinal: Gastrointestinal: Denies abdominal pain Genitourinary: Genitourinary: Denies hematuria Musculoskeletal: Musculoskeletal: Denies back pain and Denies myalgias Integumentary/Breasts: Skin/Breast: Reports erythema and Reports skin pain Neurologic: Reports Normal hearing present, Denies Abnormal speech present, Denies behavioral changes and Reports con
[2022-06-30] MEDS: VANCOMYCIN 1,000 MG/NS 250 ML 1,000 MG/250 ML BAG 250 MG IVPB (16:00)
[2022-06-30 16:05] LABS: Glucose Point of Care 117 mg/dl (65-105)
[2022-06-30 20:36] LABS: Glucose Point of Care 125 mg/dl (65-105)
[2022-07-01] VITALS (17 sets, daily range): BP systolic 88–109; BP diastolic 40–70; PULSE 61–77; RESP 14–26; TEMP 36.1–36.5; O2SAT 92–100
[2022-07-01] MEDS: ACETAMINOPHEN 325 MG TABLET 650 MG PO (03:43)
[2022-07-01 05:19] LABS: Basophils Percent Auto 0.1 % (0.2-1.2); Eosinophils Percent Auto 0.3 % (0-4.4); Hematocrit 33.3 % (37.0-47.0); Hemoglobin 10.2 g/dL (12.0-15.0); Immature Granulocyte Absolute 0.02 K/mm3 (0.00-0.031); Immature Granulocyte Percent A 0.2 % (0-0.5); Immature Platelet Fraction Pct 5.3 % (0.9-11.2); Lymphocytes Absolute Auto 0.55 K/mm3 (0.9-3.2); Lymphocytes Percent Auto 6.2 % (18.3-44.2); Mean Corpuscular HGB Conc 30.6 g/dl (32-36); Mean Corpuscular Hemoglobin 27.1 pg (26-34); Mean Corpuscular Volume 88.6 fl (80-100); Mean Platelet Volume 10.4 fl (7.4-10.4); Monocytes Absolute Auto 0.8 K/mm3 (0.1-0.6); Neutrophils Absolute Auto 7.4 K/mm3 (1.3-6.7); Neutrophils Percent Auto 84.2 % (45.5-73.1); Nucleated Red Blood Cells Perc 0.2 % (0.0-0.2); Platelet Count Result 80 k/mm3 (150-375); Red Blood Count 3.76 M/mm3 (4.2-5.4); Red Cell Distribution Width 17.8 % (11.5-14.5); White Blood Count 8.8 K/mm3 (4.5-10.0)
[2022-07-01 05:27] LABS: Alanine Aminotransferase 35 U/L (6-35); Albumin Level 2.4 g/dL (3.5-5.1); Alkaline Phosphatase 137 U/L (38-126); Anion Gap 5 mmol/L (8-16); Aspartate Amino Transferase 67 U/L (14-36); Blood Urea Nitrogen 47 mg/dL (7-17); Calcium 7.8 mg/dL (8.4-10.2); Carbon Dioxide 24 mmol/L (22-30); Chloride 113 mmol/L (98-107); Estimated CRCL calculation 24 ml/min; Estimated Glomerular Filt Rate 29; Glucose 74 mg/dL (65-110); Potassium 3.5 mmol/L (3.4-5.0); Sodium 142 mmol/L (137-145)
[2022-07-01 08:12] LABS: Glucose Point of Care 69 mg/dl (65-105)
--- NOTE | 2022-07-01 08:31 | PM.PNPUL ---
Progress Note: A&P Assessment and Plan (1) Acute on chronic systolic and diastolic heart failure, NYHA class 3: Code(s): I50.43 - Acute on chronic combined systolic (congestive) and diastolic (congestive) heart failure Status: Acute (2) Pulmonary edema: Code(s): J81.1 - Chronic pulmonary edema Status: Acute Assessment and Plan: 82-year-old female with history of congestive heart failure, currently treated for hypoxemic hypercapnic respiratory failure related to pulmonary edema. Patient has been on broad-spectrum antibiotics for possible pneumonia. Clinical presentation and diagnostic studies are more consistent with severe pulmonary edema rather than pneumonia. Of note patient has no cough or sputum production, has normal WBC, mildly elevated CRP, and viral studies are negative. She seems to be tolerating BiPAP support well. There was improvement of hypercapnia on repeat blood gases yesterday. Today's exam still showing diffuse crackles. Has diuresed but not a whole lot. Chest x-ray more or less unchanged. MRSA screening pending. Plan: Have discontinued vancomycin and meropenem. Will continue with levofloxacin for now. Monitor respiratory status. Repeat chest x-ray in a.m. (3) Atrial fibrillation: Code(s): I48.91 - Unspecified atrial fibrillation Status: Acute (4) New onset atrial fibrillation: Code(s): I48.91 - Unspecified atrial fibrillation Status: Acute (5) Acute kidney injury: Code(s): N17.9 - Acute kidney failure, unspecified Status: Acute (6) BRO (obstructive sleep apnea): Code(s): G47.33 - Obstructive sleep apnea (adult) (pediatric) Status: Acute Subjective Date/time seen: 07/01/22 08:31 Interval history: Patient has no new respiratory complaints. She stated she is doing better on BiPAP. She has no cough or sputum production afebrile, hemodynamically stable on diuretics for pulmonary edema she still on antibiotics. Review of Systems Review of Systems: All systems reviewed & are unremarkable except as noted in HPI and below (HPI and below) Exam Narrative: GENERAL APPEARANCE: Well developed, well nourished, alert and cooperative, and appears to be in mild respiratory distress while noninvasive ventilatory support via BIPAP SKIN: Inspection of the skin reveals no rashes, ulcerations or petechiae. HEENT: Sclerae anicteric and conjunctivae pink and moist. Extraocular movements were intact and pupils were equal, round. NECK: Supple. There was no thyroid enlargement, and no tenderness, or masses were felt. LUNGS: Diffuse rales bilaterally, no wheezing CARDIAC: There was an irregular rate and rhythm; 1/6 systolic ejection murmur ABDOMEN: Soft and nontender with normal bowel sounds. There was no organomegaly. LYMPH NODES: No lymphadenopathy was appreciated in the neck. EXTREMITIES: Dermatitis erythema rash right lower extremity, 1+ pedal edema bilaterally NEUROLOGIC: Alert and oriented x 3. Normal affect. Objective Data Vital Signs Vital Signs: Vital Signs - 24 hr 06/30/22 10:04 06/30/22 10:30 06/30/22 11:22 Temperature Pulse Rate 76 78 76 Respiratory Rate 21 H 26 H Blood Pressure Pulse Oximetry 94 94 Oxygen Delivery BiPAP BiPAP Oxygen Flow Rate Fraction of Inspired Oxygen 06/30/22 12:48 06/30/22 13:37 06/30/22 16:13 Temperature 35.6 C L 36.2 C L Pulse Rate 68 60 60 Respiratory Rate 26 H 29 H 22 H Blood Pressure 110/54 L 120/68 Pulse Oximetry 92 96 97 Oxygen Delivery BiPAP Oxygen Flow Rate Fraction of Inspired Oxygen 06/30/22 10:00 06/30/22 12:00 06/30/22 14:00 Temperature Pulse Rate 71 72 67 Respiratory Rate Blood Pressure Pulse Oximetry Oxygen Delivery Oxygen Flow Rate Fraction of Inspired Oxygen 06/30/22 16:00 06/30/22 17:12 06/30/22 18:00 Temperature Pulse Rate 64 69 68 Respiratory Rate 30 H Blood Pressure Pulse Oximetry 94
[2022-07-01] MEDS: PANTOPRAZOLE 40 MG TABLET PO (08:49)
[2022-07-01] MEDS: BENZONATATE 100 MG CAPSULE 200 MG PO ×2 (08:49→12:08)
[2022-07-01] MEDS: NEBIVOLOL HCL 5 MG TABLET 10 MG PO (08:49)
[2022-07-01] MEDS: guaiFENesin 600 MG/DEXTROMETHORPHAN 30 MG SR TAB 12 HR 1 TAB PO (08:49)
[2022-07-01] MEDS: APIXABAN 5 MG TABLET PO (08:49)
[2022-07-01] MEDS: FUROSEMIDE INJ 40 MG/4 ML VIAL IV PUSH (08:50)
[2022-07-01] MEDS: MEMANTINE 10 MG TABLET PO (08:50)
[2022-07-01] MEDS: THERAPEUTIC MULTIVITAMINS/MINERALS TAB (*BKC) 1 TABLET PO (08:50)
[2022-07-01] MEDS: FERROUS SULFATE 324 MG TABLET PO (08:50)
[2022-07-01] MEDS: ATORVASTATIN 20 MG TABLET PO (08:50)
[2022-07-01] MEDS: amLODIPine BESYLATE 5 MG TABLET 10 MG PO (08:50)
[2022-07-01] MEDS: DOCUSATE SODIUM 100 MG CAPSULE PO (08:50)
--- NOTE | 2022-07-01 10:17 | PM.IMPN ---
Progress Note: A&P Assessment and Plan (1) Pneumonia: Code(s): J18.9 - Pneumonia, unspecified organism Status: Acute Assessment and Plan: 06/30: worsening resp status depsite diuresis and doxycycline treatment, CXR showed severe, diffuse lung disease, with pulm edema, pleural effusions, and bilateral pneumonia, started on broad spectrum abx, vanc + meropenem + levaquin, consult to pulm placed and pending, CT chest also showed pleural effusions, consider mucolytics, will defer management to pulm, check COVID + flu + RSV pending 07/01: day 2 broad spectrum abx for HCAP, improving, leuk trending down, MRSA swab pending--d/c vanc when neg, bld cx NGTD, sputum cx pending, CRP + PCT pending, COVID/flu/RSV all negative, CXR improving, add mucomyst + pulmozyme and assess response (2) New onset atrial fibrillation: Code(s): I48.91 - Unspecified atrial fibrillation Status: Acute Assessment and Plan: Heart rate is generally controlled, CHADS2-VASc score is at least 7, cont Eliquis 5 mg p.o. b.i.d. 06/28: Increase nebivolol to 10 mg daily per cardio recs, echo pending 06/29: Echo 06/28 showed EF 50-55%, indeterminate diastolic function, mild valvular disease and moderate pulmonary hypertension, increased diuresis with Lasix 40 mg t.i.d. today 06/30: Rate controlled 07/01: cont lasix 40 BID, nebivolol 10 mg daily (3) Acute on chronic diastolic congestive heart failure: Code(s): I50.33 - Acute on chronic diastolic (congestive) heart failure Status: Acute Assessment and Plan: Her last echocardiogram showed diastolic dysfunction and an EF at the low end of normal. Repeat echo as above. Continue diuresis with furosemide 40 mg IV q.12 hours, low sodium diet. Monitor I/O, daily weights, and electrolytes. Continue nebivolol and losartan. Diuresis increased 06/29 and creat worsened, sob worsened, workup pending 06/30: Check CT chest, nebs, CXR, ABG Update: CXR showed multifocal pna, will initiate broad spectrum abx with vanc + meropenem + levaquin 07/01: cont lasix 40 mg IV BID, responding to this, creatinine stable (4) Acute kidney injury: Code(s): N17.9 - Acute kidney failure, unspecified Status: Acute Assessment and Plan: suspect 2/2 volume overload, monitor cr while diuresing Worsened a bit today, anticipate a little worse tomorrow with the increased Lasix Creat worsened again 06/30, consult nephrology due to volume overload with worsening creat, concern for cardiorenal syndrome? 07/01: stable with current management, monitor (5) Left leg cellulitis: Code(s): L03.116 - Cellulitis of left lower limb Status: Acute Assessment and Plan: 06/27: doxycycline started, improving 06/30: abx escalated for pna 06/30 to vanc + meropenem + levaquin, d/c doxy 07/01: cont current management, improving (6) Cirrhosis: Code(s): K74.60 - Unspecified cirrhosis of liver Status: Acute Assessment and Plan: No significant fluid noted on abdominal exam Trend LFTs, worsening Check CT abd + pelvis 06/30: worsening, likely 2/2 [id number] syndrome? worsening congestion from cirrhosis and heart failure? 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 Initiate sliding scale insulin, Accu-Cheks, and hypoglycemic protocol. A1c 6.7 Blood glucose reviewed 07/01 (8) Hypertension: Code(s): I10 - Essential (primary) hypertension Status: Acute Assessment and Plan: Blood pressures reviewed 07/01 D/c norvasc, somewhat low BP, cont nebivolol for now for HR control Plan 07/01: Spent extensive time discussing prognosis with patient, son and family friend. Peter
--- NOTE | 2022-07-01 10:25 | P.PNNP_ITS ---
Progress Note: A&P Assessment and Plan (1) Acute kidney injury: Code(s): N17.9 - Acute kidney failure, unspecified Status: Acute Assessment and Plan: * presumably due to CHF and necessity of diuresis and possibly relative hypotension * concurrent ARB therapy may have also played a role * normal creatinine at baseline (about a month ago) * admitted with creatinine of 1.4mg/dl * follow-up on urine studies (electrolytes, eosinophils...etc) and renal ultrasound * in-spite of rising creatinine, agree with diuresis as tolerated * consider changing to IV bumex but her hemodynamics maybe the limiting factor * follow repeat labs and UOP (2) Acute respiratory failure: Code(s): J96.00 - Acute respiratory failure, unspecified whether with hypoxia or hypercapnia Status: Acute Assessment and Plan: * due to pulmonary edema/CHF with the possibility of pneumonia * CXR and CT of chest results noted * Pulmonary following * continue diuresis, supplemental oxygen, PRN BiPAP, and antibiotics * complicated by BRO * continue supportive therapy (3) Acute on chronic systolic and diastolic heart failure, NYHA class 3: Code(s): I50.43 - Acute on chronic combined systolic (congestive) and diastolic (congestive) heart failure Status: Acute Assessment and Plan: * Echo with EF 50 55% with moderate pulmonary hypertension * continue IV lasix * follow I/Os, daily weights, and respiratory status * Cardiology following (4) Atrial fibrillation: Code(s): I48.91 - Unspecified atrial fibrillation Status: Chronic Assessment and Plan: * contine rate control strategy * on anticoagulation (5) Insulin dependent type 2 diabetes mellitus: Code(s): E11.9 - Type 2 diabetes mellitus without complications; Z79.4 - senior care (current) use of insulin Status: Chronic Assessment and Plan: * follow accuchecks * glycemic control per hospitalists Will continue to follow Subjective Date/time seen: 07/01/22 10:25 Interval history: Follow-up for acute kidney injury/acute renal failure. Respiratory status seems to be doing a bit better with the use of BiPAP; increase urine output in the last 24 hours but still not significantly negative with regard to I/Os (atlhough since she is incontinent at times, accuracy of I/Os questionable; BP remains on the soft side as well; renal function stable/unchanged in comparison to yesterday. Exam Narrative: General: elderly but WD/WN female in mild distress despite being on BiPAP Heart: normal S1 and S2; no rub Lungs: diffuse crackles noted Abdomen: soft, nontender, nondistended, positive bowel sounds Extremities: no cyanosis or clubbing; trace - 1+ edema Skin: warm and dry Objective Data Vital Signs Vital Signs: Vital Signs Temp Pulse Resp BP Pulse Ox O2 Del Method O2 Flow Rate 07/01/22 10:14 71 26 H 07/01/22 08:49 62 07/01/22 08:00 97 F L 65 20 109/59 L 100 07/01/22 08:03 100 BiPAP 07/01/22 08:01 68 14 100 BiPAP 07/01/22 06:00 77 07/01/22 04:00 68 20 97 BiPAP 6 07/01/22 04:00 68 07/01/22 02:00 65 07/01/22 04:00 97.3 F L 61 24 H 96/54 L 99 07/01/22 03:00 77 24 H 96 BiPAP 07/01/22 00:00 68 20 95 BiPAP 6
--- NOTE | 2022-07-01 10:25 | PM.PNNEP ---
Progress Note: A&P Assessment and Plan (1) Acute kidney injury: Code(s): N17.9 - Acute kidney failure, unspecified Status: Acute Assessment and Plan: presumably due to CHF and necessity of diuresis and possibly relative hypotension concurrent ARB therapy may have also played a role normal creatinine at baseline (about a month ago) admitted with creatinine of 1.4mg/dl follow-up on urine studies (electrolytes, eosinophils...etc) and renal ultrasound in-spite of rising creatinine, agree with diuresis as tolerated consider changing to IV bumex but her hemodynamics maybe the limiting factor follow repeat labs and UOP (2) Acute respiratory failure: Code(s): J96.00 - Acute respiratory failure, unspecified whether with hypoxia or hypercapnia Status: Acute Assessment and Plan: due to pulmonary edema/CHF with the possibility of pneumonia CXR and CT of chest results noted Pulmonary following continue diuresis, supplemental oxygen, PRN BiPAP, and antibiotics complicated by BRO continue supportive therapy (3) Acute on chronic systolic and diastolic heart failure, NYHA class 3: Code(s): I50.43 - Acute on chronic combined systolic (congestive) and diastolic (congestive) heart failure Status: Acute Assessment and Plan: Echo with EF 50 55% with moderate pulmonary hypertension continue IV lasix follow I/Os, daily weights, and respiratory status Cardiology following (4) Atrial fibrillation: Code(s): I48.91 - Unspecified atrial fibrillation Status: Chronic Assessment and Plan: contine rate control strategy on anticoagulation (5) Insulin dependent type 2 diabetes mellitus: Code(s): E11.9 - Type 2 diabetes mellitus without complications; Z79.4 - [facility] (current) use of insulin Status: Chronic Assessment and Plan: follow accuchecks glycemic control per hospitalists Will continue to follow Subjective Date/time seen: 07/01/22 10:25 Interval history: Follow-up for acute kidney injury/acute renal failure. Respiratory status seems to be doing a bit better with the use of BiPAP; increase urine output in the last 24 hours but still not significantly negative with regard to I/Os (atlhough since she is incontinent at times, accuracy of I/Os questionable; BP remains on the soft side as well; renal function stable/unchanged in comparison to yesterday. Exam Narrative: General: elderly but WD/WN female in mild distress despite being on BiPAP Heart: normal S1 and S2; no rub Lungs: diffuse crackles noted Abdomen: soft, nontender, nondistended, positive bowel sounds Extremities: no cyanosis or clubbing; trace - 1+ edema Skin: warm and dry Objective Data Vital Signs Vital Signs: Vital Signs Temp Pulse Resp BP Pulse Ox O2 Del Method O2 Flow Rate 07/01/22 10:14 71 26 H 07/01/22 08:49 62 07/01/22 08:00 97 F L 65 20 109/59 L 100 07/01/22 08:03 100 BiPAP 07/01/22 08:01 68 14 100 BiPAP 07/01/22 06:00 77 07/01/22 04:00 68 20 97 BiPAP 6 07/01/22 04:00 68 07/01/22 02:00 65 07/01/22 04:00 97.3 F L 61 24 H 96/54 L 99 07/01/22 03:00 77 24 H 96 BiPAP 07/01/22 00:00 68 20 95 BiPAP 6 07/01/22 00:00 68 06/30/22 20:00 70 20 93 BiPAP 6 06/30/22 22:00 93 06/30/22 20:00 70 06/30/22 22:34 97.1 F L 58 L 22 H 102/46 L 99 06/30/22 22:15 72 20 95 BiPAP 06/30/22 19:50 69 22 H 94 BiPAP 06/30/22 20:00 97.0 F L 62 24 H 105/79 97 06/30/22 16:00 BiPAP 06/30/22 18:00 68 06/30/22 17:12 69 30 H 94 BiPAP 06/30/22 16:00 64 06/30/22 14:00 67 06/30/22 16:13 97.2 F L 60 22 H 120/68 97 06/30/22 13:37 60 29 H 96 BiPAP 06/30/22 12:48 96.1 F L 68 26 H 110/54 L 92 Intake/Output Intake/Output: Intake & Output
[2022-07-01] MEDS: ALBUTEROL SULFATE NEB 2.5 MG/3 ML INH INHALATION ×2 (10:43→13:28)
[2022-07-01] MEDS: ACETYLCYSTEINE 20% INHAL SOLN 800 MG/4 ML VIAL 200 MG INHALATION (10:43)
[2022-07-01] MEDS: IPRATROPIUM BR 0.02% INH SOLN 0.5 MG/2.5 ML VIAL INHALATION ×2 (10:44→13:28)
[2022-07-01 11:35] LABS: Procalcitonin 0.4 ng/mL
[2022-07-01 11:42] LABS: CRP 8.9 mg/dL (<1.0)
[2022-07-01] MEDS: MEROPENEM 1 GM in SODIUM CHLORIDE 0.9% IV 100 ML 200 ML IVPB (12:07)
[2022-07-01 12:41] LABS: Glucose Point of Care 209 mg/dl (65-105)
[2022-07-01 12:45] LABS: Alveolar/Arterial O2 Gradient 111.1 mmHg; Base Excess ABG -2.9 mEq/l (+/-2.0); Device NASAL CANNULA; Fractional Inspired Oxygen 32 %; HCO3 ABG 23.1 mEq/l (22.0-26.0); Modified Allen's Test Unable to perform; Oxygen Content ABG 14.4 %vol (16.0-22.0); Oxygen Saturation ABG 91.1 % (95.0-100.0); Oxyhemoglobin 90.2 % THb (90.0-100.0); PCO2 ABG 44.9 mmHg (35.0-45.0); PO2 ABG 64.5 mmHg (80.0-100.0); PO2 FiO2 Ratio Arterial Blood 2.02 %; Site Drawn LEFT RADIAL; Total Hemoglobin 11.3 g/dL (12.0-18.0); pH ABG 7.329 (7.350-7.450)
--- NOTE | 2022-07-01 12:47 | PM.PNCARD ---
Progress Note: A&P Assessment and Plan (1) Acute on chronic systolic and diastolic heart failure, NYHA class 3: Code(s): I50.43 - Acute on chronic combined systolic (congestive) and diastolic (congestive) heart failure Status: Acute Assessment and Plan: Continue furosemide 40 mg IV q.12 hours. Will try to get more aggressive with her diuretics depending on her blood pressure. Has purewick in place, put urine output is not accurate. Recommend phelps catheter for accurate I/Os. CXR with persistent bilateral airspace disease, likely pulmonary edema. CXR today looks better to me on personal review of image in comparison to yesterday's CXR. EF 50 55%, moderate pulmonary hypertension RVSP 53 mm Hg. Prognosis is guarded. Patient is very ill. DNR status noted. (2) New onset atrial fibrillation: Code(s): I48.91 - Unspecified atrial fibrillation Status: Acute Assessment and Plan: Continue systemic anticoagulation with Eliquis 5 mg twice daily for embolic stroke risk reduction. Will hold beta abhishek for now due to baseline bradycardia and to allow more blood pressure room. (3) Hypertension associated with diabetes: Code(s): E11.59 - Type 2 diabetes mellitus with other circulatory complications; I15.2 - Hypertension secondary to endocrine disorders Status: Acute Assessment and Plan: Hold all blood pressure medications at this time given low blood pressures. (4) Acute kidney injury: Code(s): N17.9 - Acute kidney failure, unspecified Status: Acute Assessment and Plan: Creatinine increased to 1.7. Acute on chronic renal insufficiency. Need to monitor volume status closely with diuresis and avoid hypotension. Monitor BMP (5) Hyperlipidemia associated with type 2 diabetes mellitus: Code(s): E11.69 - Type 2 diabetes mellitus with other specified complication; E78.5 - Hyperlipidemia, unspecified Status: Acute Assessment and Plan: Continue statin (6) Cellulitis: Code(s): L03.90 - Cellulitis, unspecified Status: Acute Assessment and Plan: Treatment of cellulitis per hospitalist. Subjective Date/time seen: 07/01/22 12:47 Interval history: 82-year-old with shortness of breath and atrial fibrillation Date of service 06/28/2022: Still short of breath a little bit better. Swelling has slightly improved. Cellulitis is unchanged. No chest pain Date of service 06/29/2022: She feels worse today. She is more short of breath. Still swollen. Cellulitis has improved. No chest pain Date of service 06/30/2022: More short of breath today transferred to IMU transition from CPAP to BiPAP which was helping her. She continues to have edema of. Denies chest pain or palpitations. Remains in AFib heart rate controlled. This morning x-ray worse pulmonary edema suspicion for bilateral pneumonia. Pulmonology consulted. COVID, flu, RSV negative. Date of service 07/01/2022: Short of breath today. On 6L of O2 at the time of my evaluation, however, has labored respirations. Review of Systems Review of Systems: +Shortness of breath. +Swelling in legs. No chest pain. No abdominal pain. Exam Narrative: Patient is awake alert appears stated age increased work of breathing Const: General: No comfortable Other: Tachypneic short of breath with conversation. Eyes: General: appearance normal, both eyes and all related structures Sclera: sclerae normal Neck: Neck: supple Resp: Auscultation: crackles and diminished lung sounds Other: Increased work of breathing, tachypnea on nasal cannula Cardio: Rate: bradycardic Rhythm: abnormal rhythm irregularly irregular GI: Inspection: non-distended Skin: General skin exam: erythema (Redness noted in left lower extremity) Neuro: Speech: normal speech Extrem: General: edema Other: 1-2 +bilateral extremity edema Psych: Mental Status: mental status gr
--- NOTE | 2022-07-01 13:05 | PCRCNOTE ---
Found pt on continuous BIPAP this AM. Pt stayed on until 1100. Pt took off of BIPAP and placed on 3L NC to eat lunch. RT called at 1215 by RN stating an ABG was being ordered. RT maycol ABG. Dr. Castro in room as ABG was drawn. Pt breathing through mouth, Venturi mask placed on 6L 30% to make pt more comfortable before RT left room. RT ran ABG and was called back down due to pt desatting to upper 80's. BIPAP placed back on pt and SP02 monitored. Pt at 95% on NIV settings at 35% Fi02.
[2022-07-01] MEDS: LORazepam INJ (*CRX) 2 MG/ML VIAL 0.5 MG IV PUSH (13:55)
[2022-07-01 14:05] LABS: Creatinine Urine 75.7 mg/dL; Total Protein Urine Random 16 mg/dL; Ur Ttl Prot Creatinine Ratio 0.21 mg/mg (0-0.20); Urea Random Urine 475 MG/DL
[2022-07-01 14:07] LABS: Sodium Urine Random 9 meq/L
[2022-07-01 14:12] LABS: Eosinophil Urine None Seen % (None Seen); Urine Eos QC 2nd Tech Confirmed
[2022-07-01 14:39] LABS: Appearance Urine Clear (Clear); Bacteria Urine None Seen /hpf; Bilirubin Urine Negative (Negative); Blood Urine Negative (Negative); Color Urine Dark Yellow (Yellow); Glucose Urine UA Negative (Negative); Ketones Urine Negative (Negative); Leukocyte Esterase Ur Negative LEU/UL (Negative); Nitrate Urine Negative (Negative); Protein Urine Trace mg/dL (Negative); RBC Urine 0-2 /hpf (0-2); Specific Grav Ur 1.014 (1.001-1.035); Squamous Epithelial Cell Urine None seen /hpf (Few); Urobilinogen Urine 0.2 mg/dL (<2.0); WBC Urine 0-5 /hpf
[2022-07-01 14:56] LABS: Add Urine Microscopic? YES
[2022-07-01] MEDS: MORPHINE SULFATE (*CRX) 2 MG/ML INJ IV PUSH (15:33)
--- NOTE | 2022-07-01 16:11 | PM.IMHP ---
H&P: HPI History of Present Illness Date/Time: 07/01/22 16:11 Chief Complaint: Uncontrolled dyspnea and restlessness Narrative: This unfortunate 82-year-old female was admitted [facility] June 27 with acute left lower extremity cellulitis and new onset atrial fibrillation with rapid ventricular rate her heart rate was adequately controlled and her cellulitis was responding to IV antibiotics. However she worsened requiring BiPAP and also with worsened renal function with creatinine increased from 1.4 to admission to 1.7 today. She did not respond to broad-spectrum antibiotics including vancomycin meropenem and Levaquin as well as furosemide for diuresis. Echocardiogram showed ejection fraction about 50% with diastolic dysfunction and mild valvular disease. Due to patient request BiPAP was discontinued and because of her ongoing multiple issues including insulin-requiring type 2 diabetes kidney failure chronic congestive heart failure new onset atrial fibrillation pulmonary edema with possible pneumonia and respiratory failure requiring BiPAP of which were not responding well to appropriate therapies she and her son opted for inpatient hospice care to control her dyspnea and restlessness. 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 Chronic diastolic (congestive) heart failure Chronic pain disorder Chronic pancreatitis Chronic right hip pain 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) Cognitive impairment Constipation Diabetic nephropathy Diabetic neuropathy Essential (primary) hypertension Gastroparesis due to DM Granulomatous lung disease History of right breast cancer Hypersomnia 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) LBBB (left bundle branch block) Liver, cirrhosis, portal Lumbar spondylosis MDD (major depressive disorder), recurrent episode, severe Mild cognitive impairment with memory loss Nephropathy associated with another disease Non-rheumatic mitral regurgitation Obesity (07/07/14) Occlusion and stenosis of bilateral carotid arteries BRO (obstructive sleep apnea) Portal hypertension (07/07/14) Primary generalized (osteo)arthritis PVD (peripheral vascular disease) Renovascular hypertension Secondary esophageal varices without bleeding Splenomegaly (07/07/14) TIA (transient ischemic attack) Trochanteric bursitis of right hip Valvular heart disease Vascular dementia Vitamin D deficiency Surgical History Surgical History H/O hemicolectomy H/O subtotal mastectomy of right breast Hx of appendectomy Hx of cataract extraction Hx of hysterectomy S/P total knee arthroplasty Family History Family History Sibling Family history of diabetes mellitus in first degree relative Family history of malignant neoplasm of breast in first degree relative, Onset Age: 49 Mother Family history of pancreatic cancer, Onset Age: 85 Other Family history of malignant neoplasm of breast Social History Social History (Updated 07/01/22 @ 16:14 by Emeterio Richard MD) Social History: with 3 children. Retired. Currently at [employer]. Lifelong nonsmoker. No alcohol or illicit substance use. Surrogate decision maker: Jose Alfredo Baker, son. Code status: DNR Smoking status: Never smoker Second hand tobacco smoke exposure: No Alcohol intake: never Substance use: never Lack of Transportation: No Lack of Food: Never True Current Housing:
[2022-07-08 18:09] LABS: Chloride Rand Ur 23 mmol/L (32-290); Chloride/Creatinine Rand Ur 40 (38-318); Creatinine Random Urine 58 mg/dL (20-275)
--- NOTE | 2022-07-09 08:10 | PM.DS ---
DS: Admitting Diagnosis Discharge Date 07/01/22 Admitting Diagnosis Shortness of breath DS: Discharge Diagnosis Discharge Diagnosis (1) Pneumonia: Code(s): J18.9 - Pneumonia, unspecified organism Status: Acute Assessment and Plan: 06/30: worsening resp status depsite diuresis and doxycycline treatment, CXR showed severe, diffuse lung disease, with pulm edema, pleural effusions, and bilateral pneumonia, started on broad spectrum abx, vanc + meropenem + levaquin, consult to pulm placed and pending, CT chest also showed pleural effusions, consider mucolytics, will defer management to pulm, check COVID + flu + RSV pending 07/01: day 2 broad spectrum abx for HCAP, improving, leuk trending down, MRSA swab pending--d/c vanc when neg, bld cx NGTD, sputum cx pending, CRP + PCT pending, COVID/flu/RSV all negative, CXR improving, add mucomyst + pulmozyme and assess response (2) New onset atrial fibrillation: Code(s): I48.91 - Unspecified atrial fibrillation Status: Acute Assessment and Plan: Heart rate is generally controlled, CHADS2-VASc score is at least 7, cont Eliquis 5 mg p.o. b.i.d. 06/28: Increase nebivolol to 10 mg daily per cardio recs, echo pending 06/29: Echo 06/28 showed EF 50-55%, indeterminate diastolic function, mild valvular disease and moderate pulmonary hypertension, increased diuresis with Lasix 40 mg t.i.d. today 06/30: Rate controlled 07/01: cont lasix 40 BID, nebivolol 10 mg daily (3) Acute on chronic diastolic congestive heart failure: Code(s): I50.33 - Acute on chronic diastolic (congestive) heart failure Status: Acute Assessment and Plan: Her last echocardiogram showed diastolic dysfunction and an EF at the low end of normal. Repeat echo as above. Continue diuresis with furosemide 40 mg IV q.12 hours, low sodium diet. Monitor I/O, daily weights, and electrolytes. Continue nebivolol and losartan. Diuresis increased 06/29 and creat worsened, sob worsened, workup pending 06/30: Check CT chest, nebs, CXR, ABG Update: CXR showed multifocal pna, will initiate broad spectrum abx with vanc + meropenem + levaquin 07/01: cont lasix 40 mg IV BID, responding to this, creatinine stable (4) Acute kidney injury: Code(s): N17.9 - Acute kidney failure, unspecified Status: Acute Assessment and Plan: suspect 2/2 volume overload, monitor cr while diuresing Worsened a bit today, anticipate a little worse tomorrow with the increased Lasix Creat worsened again 06/30, consult nephrology due to volume overload with worsening creat, concern for cardiorenal syndrome? 07/01: stable with current management, monitor (5) Left leg cellulitis: Code(s): L03.116 - Cellulitis of left lower limb Status: Acute Assessment and Plan: 06/27: doxycycline started, improving 06/30: abx escalated for pna 06/30 to vanc + meropenem + levaquin, d/c doxy 07/01: cont current management, improving (6) Cirrhosis: Code(s): K74.60 - Unspecified cirrhosis of liver Status: Acute Assessment and Plan: No significant fluid noted on abdominal exam Trend LFTs, worsening Check CT abd + pelvis 06/30: worsening, likely 2/2 [id number] syndrome? worsening congestion from cirrhosis and heart failure? 07/01: improving after adding broad spectrum abx, cont to monitor for now (7) Insulin dependent type 2 diabetes mellitus: Code(s): E11.9 - Type 2 diabetes mellitus without complications; Z79.4 - long term acute care registered nurse (current) use of insulin Status: Chronic Assessment and Plan: Insulin currently being held. Initiate sliding scale insulin, Accu-Cheks, and hypoglycemic protocol. A1c 6.7 Blood glucose reviewed 07/01 (8) Hypertension: Code(s): I10 - Essential (primary) hypertension Status: Acute Assessment and Plan: Blood pressures reviewed 07/01 D/c norvasc, somewhat low BP, cont nebivolol for now for HR control
== END 2022-07-01 16:12 | disposition hospice, inpatient (51) | DRG 291 ==
LOC: ANHED 09:25 → ANH3MEDSUR 12:52 → ANHIMU 06-30 08:55
PROVIDERS: Emergency Medicine; Internal Medicine Nephrology; Internal Medicine Pulmonary Disease; Physician Assistant; Admitting Provider Chiropractor; Emergency Provider Physician Assistant; PCP Family Medicine; Visit Provider Student in an Organized Health Care Education/Training Program
DX: I11.0 Hypertensive heart disease with heart failure (principal); I50.43 Acute on chronic combined systolic (congestive) and diastolic (congestive) heart failure; J96.00 Acute respiratory failure, unspecified whether with hypoxia or hypercapnia; J18.9 Pneumonia, unspecified organism; N17.9 Acute kidney failure, unspecified; L03.116 Cellulitis of left lower limb; I48.91 Unspecified atrial fibrillation; G47.33 Obstructive sleep apnea (adult) (pediatric); Z20.822 Contact with and (suspected) exposure to COVID-19; D64.9 Anemia, unspecified; I25.10 Atherosclerotic heart disease of native coronary artery without angina pectoris; E11.42 Type 2 diabetes mellitus with diabetic polyneuropathy; K74.60 Unspecified cirrhosis of liver; F01.50 Vascular dementia, unspecified severity, without behavioral disturbance, psychotic disturbance, mood disturbance, and anxiety; M47.816 Spondylosis without myelopathy or radiculopathy, lumbar region; D69.6 Thrombocytopenia, unspecified; E78.5 Hyperlipidemia, unspecified; I73.9 Peripheral vascular disease, unspecified; E66.9 Obesity, unspecified; E11.59 Type 2 diabetes mellitus with other circulatory complications; I15.2 Hypertension secondary to endocrine disorders; Z68.33 Body mass index [BMI] 33.0-33.9, adult; Z90.49 Acquired absence of other specified parts of digestive tract; Z85.3 Personal history of malignant neoplasm of breast; Z86.73 Personal history of transient ischemic attack (TIA), and cerebral infarction without residual deficits; Z96.659 Presence of unspecified artificial knee joint; Z98.49 Cataract extraction status, unspecified eye; Z66 Do not resuscitate
CPT/HCPCS: 36415; 36600; 71045; 71046; 71250; 74176; 80053; 81001; 81050; 82436; 82570; 82805; 82948; 83036; 83605; 83880; 84145; 84156; 84300; 84484; 84540; 85025; 85055; 85380; 85610; 85730; 85999; 86140; 87040; 87081; 87636; 87637; 93005; 93971; 94002; 94640; 96365; 96367; 96375; 96376; 97163; 97165; 99285; A9270; C8929; G0378; J0696; J1815; J1940; J1956; J2060; J2185; J2270; J3370; Q9957

== ENCOUNTER 2022-07-01 16:33 | HOS | payer OTHER, SELFPAY ==
--- NOTE | 2022-07-01 16:16 | HP_ITS ---
This report was moved to the correct visit on 07/02/2022. Original report was signed by Emeterio Richard MD on 07/01/22 [id number]. H&P: HPI History of Present Illness Date/Time: 07/01/22 16:11 Chief Complaint: Uncontrolled dyspnea and restlessness Narrative: This unfortunate 82-year-old female was admitted [facility] June 27 with acute left lower extremity cellulitis and new onset atrial fibrillation with rapid ventricular rate her heart rate was adequately controlled and her cellulitis was responding to IV antibiotics. However she worsened requiring BiPAP and also with worsened renal function with creatinine increased from 1.4 to admission to 1.7 today. She did not respond to broad-spectrum antibiotics including vancomycin meropenem and Levaquin as well as furosemide for diuresis. Echocardiogram showed ejection fraction about 50% with diastolic dysfunction and mild valvular disease. Due to patient request BiPAP was discontinued and because of her ongoing multiple issues including insulin-requiring type 2 diabetes kidney failure chronic congestive heart failure new onset atrial fibrillation pulmonary edema with possible pneumonia and respiratory failure requiring BiPAP of which were not responding well to appropriate therapies she and her son opted for inpatient hospice care to control her dyspnea and restlessness. 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 Chronic diastolic (congestive) heart failure Chronic pain disorder Chronic pancreatitis Chronic right hip pain 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) Cognitive impairment Constipation Diabetic nephropathy Diabetic neuropathy Essential (primary) hypertension Gastroparesis due to DM Granulomatous lung disease History of right breast cancer Hypersomnia 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) LBBB (left bundle branch block) Liver, cirrhosis, portal Lumbar spondylosis MDD (major depressive disorder), recurrent episode, severe Mild cognitive impairment with memory loss Nephropathy associated with another disease Non-rheumatic mitral regurgitation Obesity (07/07/14) Occlusion and stenosis of bilateral carotid arteries BRO (obstructive sleep apnea) Portal hypertension (07/07/14) Primary generalized (osteo)arthritis PVD (peripheral vascular disease) Renovascular hypertension Secondary esophageal varices without bleeding Splenomegaly (07/07/14) TIA (transient ischemic attack) Trochanteric bursitis of right hip Valvular heart disease Vascular dementia Vitamin D deficiency Surgical History Surgical History H/O hemicolectomy H/O subtotal mastectomy of right breast Hx of appendectomy Hx of cataract extraction Hx of hysterectomy S/P total knee arthroplasty Family History Family History Sibling Family history of diabetes mellitus in first degree relative Family history of malignant neoplasm of breast in first degree relative, Onset Age: 49 Mother Family history of pancreatic cancer, Onset Age: 85 Other Family history of malignant neoplasm of breast Social History Social History (Updated 07/01/22 @ 16:14 by Emeterio Richard MD) Social History: with 3 children
[2022-07-01 17:40] VITALS: PULSE 63
[2022-07-01] MEDS: HYDROmorphone HCL/PF (*CRX) 50 MG in SODIUM CHLORIDE 0.9% IV 95 ML IV CONT (17:40)
[2022-07-01] MEDS: HYDROmorphone HCL INJ (*CRX) 1 MG/ML SYR 0.5 MG IV PUSH ×2 (18:47→19:36)
--- NOTE | 2022-07-01 19:32 | PC.NURSE ---
This patient, Marilyn Baker, was transferred to [facility] on 07/01/22 at 1855. Personal belongings sent with patient. Report given to Mara. Appropriate documentation sent with patient.
[2022-07-01] MEDS: diazePAM INJ (*CRX) 10 MG/2 ML SYRINGE 5 MG IV PUSH (19:36)
--- NOTE | 2022-07-01 19:48 | PC.NURSE ---
Justen ([facility]) [phone]
[2022-07-01 20:10] VITALS: PULSE 56; RESP 12
--- NOTE | 2022-07-01 20:14 | PC.NURSE ---
Dilaudid increase rate charted twice due to no prompt in verification.
[2022-07-01 20:16] VITALS: BP 70/35; PULSE 56; RESP 12; TEMP 36.1; O2SAT 63
[2022-07-01 20:44] VITALS: RESP 0
--- NOTE | 2022-07-02 11:19 | P.DN_ITS ---
Discharge Summary Date and Time Date of : 07/01/22 Time of : 20:44 Provider Pronounced By: Azucena Quarles RN/Abi Kunz RN Probable Cause of Probable Cause of : HYPOXIC AND HYPERCARBIC ACUTE RESPIRATORY FAILURE DUE TO ACUTE ON CHRONIC DIASTOLIC CHF AND HCAP Summary Hospital Course: ADMITTED TO INPATIENT HOSPICE SERVICE DUE TO UNCONTROLLED DYSPNEA AND RESTLESSNESS. MEDICATIONS TITRATED TO COMFORT. [facility]ACEFULL[facility]. Additional Data Confirmation of as documented by pronouncing clinician: Pupillary Reflex, Palpable Pulses, Response to Stimuli, Heart Tones and Breath Sounds Name of Provider Notified: Hilary Time Provider Notified: 20:49 Artificial Limb Maker Notified: Yes Date [facility] Notified of : 07/01/22 Time [facility] Notified of : 20:59
== END 2022-07-01 20:44 | disposition expired | DRG 951 ==
LOC: ANHIMU 18:26 → ANH3MEDSUR 18:58
PROVIDERS: Admitting Provider Internal Medicine; PCP Family Medicine; Visit Provider Internal Medicine
DX: Z51.5 Encounter for palliative care (principal); J96.01 Acute respiratory failure with hypoxia; J96.02 Acute respiratory failure with hypercapnia; J18.9 Pneumonia, unspecified organism; I50.43 Acute on chronic combined systolic (congestive) and diastolic (congestive) heart failure; L03.116 Cellulitis of left lower limb; N17.9 Acute kidney failure, unspecified; I11.0 Hypertensive heart disease with heart failure; I48.91 Unspecified atrial fibrillation; E11.9 Type 2 diabetes mellitus without complications; K74.60 Unspecified cirrhosis of liver; D64.9 Anemia, unspecified; F01.50 Vascular dementia, unspecified severity, without behavioral disturbance, psychotic disturbance, mood disturbance, and anxiety; G47.33 Obstructive sleep apnea (adult) (pediatric); E11.42 Type 2 diabetes mellitus with diabetic polyneuropathy; Z79.4 Long term (current) use of insulin; Z85.3 Personal history of malignant neoplasm of breast; Z86.73 Personal history of transient ischemic attack (TIA), and cerebral infarction without residual deficits; Z90.49 Acquired absence of other specified parts of digestive tract; Z90.710 Acquired absence of both cervix and uterus; Z96.659 Presence of unspecified artificial knee joint; Z66 Do not resuscitate
CPT/HCPCS: A9270; J1170; J3360